=== PATIENT | male | born 1945 | race Caucasian/White ===

== ENCOUNTER 2019-03-25 13:35 | Outpatient (CLI) | payer MEDICARE, SELFPAY ==
[2019-03-25 14:23] LABS: Basophils % 0.4 %; Eosinophils # 0.2 10^3/uL (0.0-0.8); Eosinophils % 2.9 %; Hematocrit 34.5 % (42.0-52.0); Hemoglobin 11.9 g/dL (11.7-16.6); Lymphocytes # 0.8 10^3/uL (0.8-4.8); Lymphocytes % 14.6 %; Mean Corpuscular HGB Conc 34.5 g/dL (30.0-36.0); Mean Corpuscular Hemoglobin 33.3 pg (28.0-34.0); Mean Corpuscular Volume 96.6 fL (80-94); Mean Platelet Volume 10.7 fL (7.4-10.4); Monocytes # 0.4 10^3/uL (0.2-0.9); Monocytes % 7.5 %; Neutrophils # 3.9 10^3/uL (1.8-7.7); Nucleated Red Blood Cells % 0 %; Platelet Count 133 10^3/cmm (130-400); Red Blood Count 3.57 10^6/uL (4.1-5.3); White Blood Count 5.2 10^3/uL (4.0-10.0)
[2019-03-25 14:44] LABS: Prostate Specific Antigen < 0.02 ng/mL (0-4)
[2019-03-25 15:04] LABS: Alanine Aminotransferase 24 U/L (0-41); Albumin Level 4.5 g/dL (3.5-5.2); Alkaline Phosphatase 64 IU/L (40-130); Anion Gap 20.1 (5-19); Aspartate Amino Transferase 27 U/L (0-40); Blood Urea Nitrogen 19 mg/dL (8-23); Calcium 9.8 mg/Dl (8.8-10.2); Carbon Dioxide 22 mmol/L (22-29); Chloride 101 mmol/L (98-107); Globulin 2.8 g/dL (1.3-4.6); Glucose 169 mg/dL (74-106); Potassium 4.1 mmol/L (3.5-5.1); Sodium 139 mmol/L (136-145); Total Bilirubin 0.5 mg/dL (0.15-1.2); Total Protein 7.3 g/dL (6.6-8.7)
[2019-03-25 15:18] LABS: Testosterone Total 2.5 ng/dL (193-740)
[2019-03-25 15:31] LABS: Slide Review Slide Review Perform
== END 2019-03-25 13:36 | disposition home or self-care (01) ==
LOC: ONCMED 13:37
PROVIDERS: PCP Internal Medicine; Visit Provider Internal Medicine Hematology & Oncology
DX: C61 Malignant neoplasm of prostate (principal)
CPT/HCPCS: 80053; 84153; 84403; 85025

== ENCOUNTER 2019-03-27 12:30 | Outpatient (CLI) | payer MEDICARE, SELFPAY ==
--- NOTE | 2019-03-27 14:02 | ONC FU_ITS ---
Dr. Colindres follow up note Patient: Ji Ibarra Unit #: [id number]: 1945 Dicatated By: Jorge Colindres M.D.Date of Visit:Mar 27, 2019 Onc Med Follow-up/Prog Note History of Present Illness: Mr. Ji Ibarra, 73-year-old gentleman with a history of mildly elevated PSA since 2013 was on active surveillance and in November 2017 his PSA peaked to 12.4 so on 12/28/2017 he underwent TRUSP/biopsy which showed large volume adenocarcinoma prostate (10 out of 12 cores), right side Manuel score 3+3 ( 60% involvement) and 3+4 (90-100% )involvement, 2 cores of microscopic focus, left side Manuel score 3+4 (15 -100%) involvement and 4+4 (10% involvement)subsequently patient underwent stag with CT scan of abdomen pelvis and bone scan Which showed no evidence of metastatic disease except bone scan showed left posterior 11th rib focal intermediate increased activity whereas CT scan showed left 10th rib lytic lesion, no osteoblastic bone lesion identified and left lung base nodule. Started on ADT on 02/27/2018 with Zoladex/Casodex. Patient start taking Casodex on 02/27/2018, was supposed to get Zoladex too but due to miscommunication and insurance approval he could not get his Zoladex last month , so first dose was given on 03/28/2018 and Casodex was continued for another 2 weeks to prevent Zoladex-induced flare.s/p concurrent radiation therapy. Follow-up bone scan done on 12/10/2018 showed no activity seen at the posterior aspect of left 10th rib compared to prior scan No evidence of metastatic disease CT scan of chest done on 12/10/2018 showed stable lytic lesion in the left 10th rib, previously described 5 mm nodule left lung base is no longer seen Prominent peripancreatic lymph nodes unchanged since CT scan of abdomen pelvis done on 01/24/2018 Discussed with patient regarding his labs white blood count 5.6 hemoglobin 13.7 crit 38 platelets 126,000 CMP within normal limit except glucose 194 creatinine 1.4 and PSA is less than 0.02 tolerating 3 monthly Zoladex well but with expected side effects e.g. occasionally hot flashes and generalized weakness and fatigue. As follow-up bone scan and CT scan of chest and PSA level showed excellent response to the therapy. Came for follow-up, denies any specific complaints except generalized weakness and fatigue occasionally hot flashes otherwise tolerating ADT with Zoladex well. No fever or chills no nausea or vomiting, no hematuria or dysuria, no abdominal pain, no jaundice, no new bony pains. Medications: Allopurinol 1 Tablet (of 100 mg) Oral daily, Aspirin EC 1 Tablet (of 81 mg) Tablet, enteric coated Oral daily, Ferrous Sulfate 1 Tablet (of 325 (65 fe) mg) Oral daily, Lisinopril 1 Tablet (of 20 mg) Oral daily PRN, Meloxicam 1 Tablet (of 15 mg) Oral daily, MetFORMIN HCl 1 Tablet (of 1000 mg) Oral b.i.d., Metoprolol Tartrate 1 Tablet (of 50 mg) Oral b.i.d., Multivitamin Adult 1 Tablet Oral daily, Sildenafil Citrate 1 Tablet (of 100 mg) Oral PRN Allergies: No Known Allergies. Review of Systems: Constitutional - Appetite is improving, weight is stable. Positive for night sweats and weakness. Energy Level fair, ENMT - No sinus congestion/drainage. No mouth sores. No sore throat or difficulty swallowing, Hematologic/Lymphatic - No abnormal bruising or bleeding, Respiratory - Positive for shortness of breath with activity. Occasional cough. No pleuritic pain or hemoptysis, Cardiovascular - No angina pain. Positive for palpitations, Gastrointestinal - No nausea or vomiting. No heartburn or acid reflux. Occasional diarrhea, no constipation. No blood in the stool or black stools, Genitourinary (M) - No dysuria or hematuria. Nighttime urinary frequency. No urgency or incontinence, Musculoskeletal - No back or joint pain, Neurologic - No headache or dizziness. No numbness/paresthesias or other focal neurologic symptoms, Psychiatric - No anxiety or depression. No insomnia. Vital Signs: Performed on Mar 27, 2019 13:24 Height - 68.00 in Weight - 182.4 lbs (LOW) BSA - 1.97 sq.m BMI - 27.73 Temperature - 98.0 F (LOW) Pulse - 72 /min Respiration - 18 /min BP - 151/87 mm(hg) (HIGH) O2 Sat - 98 % Pain - 0 Performance Status: 1 - No physically strenuous activity, but ambulatory and able to carry out light or sedentary work (e.g. office work, light house work). (ECOG) Physical Examination: ENMT - No oral exudates, ulcers, masses, thrush or mucositis. Oropharynx clear. Tongue normal, Respiratory - Lungs are clear to auscultation without rhonchi or wheezing, Cardiovascular - Regular rate and rhythm of heart, Abdomen - Non-tender, non-distended, Good bowel sounds. No guarding or rebound tenderness. No pulsatile masses, Extremities - no edema. Lab/Imaging: Test performed on Mar 25, 2019 13:49 Testosterone 2.5 ng/dL Glucose 169 mg/dL BUN 19 mg/dL Creatinine 1.3 mg/dL Cr Clearance (Est) 60.78 mL/min Sodium 139 mmol/L Potassium 4.1 mmol/L Chloride 101 mmol/L CO2 22 mmol/L Calcium 9.8 mg/dL Protein, Total 7.3 g/dL Albumin 4.5 g/dL Globulin 2.8 g/dL Bilirubin, Total 0.5 mg/dL Alkaline Phosphatase 64 IU/L AST (SGOT) 27 IU/L ALT (SGPT) 24 IU/L WBC 5.2 10^9/L RBC 3.57 10^12/L HGB 11.9 g/dL HCT 34.5 % MCV 96.6 fl MCH 33.3 pg MCHC 34.5 g/dL RDW 13.0 % Platelet Count 133 10^9/L MPV 10.7 fL Neutrophils (Gran) 3.9 10^9/L Lymphocytes 0.8 10^9/L Monocytes 0.4 10^9/L Eosinophils 0.2 10^9/L Basophils 0.0 10^9/L Neutrophil % 2.9 % Manual Lymphocytes 14.6 % Manual Monocytes 7.5 % Manual Eosinophils 2.9 % Manual Basophils 0.4 % NRBCs 0.0 /100 WBC PSA 0.02 ng/mL Test performed on Mar 25, 2019 11:41 Ua Color yellow Ua Appearance clear Ua Specific [place] 1.005 Ua pH 7 Ua Protein Negative Ua Glucose 4+ Ua Ketones Negative Ua Blood Negative Ua Nitrites Negative Ua Bilirubin Negative Ua Urobilinogen 1 Impression: Prostatic adenocarcinoma per TRUSP/biopsy done on 12/28/2017 which showed large volume disease e.g. 10 out of 12 cores, right side [place] score 3+3 (60% involvement) and 3+4 (90-100% involvement) , 2 cores of microscopic focus, left-sided [place] score 3+4 (15 -100% involvement), and 4+4 (10% involvement), 2 cores microscopic focus PSA in November [address] scan of abdomen pelvis done on 01/24/2018 showed pulmonary nodule measures 5 mm at the left lung base and lytic area in the posterior left 10th rib measures 9 mm, no osteoblastic bone lesion identified, mildly enlarged prostate gland next Bone scan done on 01/24/2018 shows left posterior 11th rib focal intermediate increased activity , metastatic disease versus benign lesion with underlying pathological fracture. Type II diabetes mellitus Erectile dysfunction Congestive heart failure next Essential hypertension Started on ADT with Zoladex/Casodex on 02/27/2018. Patient is on Casodex since then, he was supposed to get Zoladex at the same time but due to miscommunication he could not get his dose of Zoladex, so first dose of Zoladex was given on 03/28/2018 and Casodex was continued for 2 more weeks to prevent Zoladex-induced flare Now on combined ADT and radiation therapy His follow-up bone scan done on 06/21/2018 showed improvement in previous left posterior 10th rib activity since 01/24/2018 this corresponds to a low density left 10th rib lesion seen on CT scan done on 01/24/2018 a metastatic lesion should be considered but this appearance is atypical for history of prostate cancer. No other abnormality seen. Mr. Ibarra is tolerating the androgen deprivation therapy well. He is just on Zoladex now. He is under the impression that he will just have 3 treatments of the Zoladex. Plan: Discussed with patient regarding his labs white blood count 5. hemoglobin 11.9 crit 34.5 platelets 133,000 CMP within normal limits PSA 0.02 Clinically, patient is doing well, tolerating ADT with Zoladex well but with expected side effects e.g. generalized weakness and fatigue and occasionally hot flashes but tolerable. We'll proceed with next 3 monthly dose of Zoladex today and then he will return to clinic in 3 months with CBC CMP PSA and testosterone and follow-up bone scan and CT scan of chest. Signed By: Jorge Colindres M.D. <<Signature on File>>
[2019-03-27] MEDS: goserelin acetate 10.8 mg Implant SUBCUT (14:05)
== END 2019-03-27 12:31 | disposition home or self-care (01) ==
LOC: ONCMED 12:32
PROVIDERS: PCP Internal Medicine; Visit Provider Internal Medicine Hematology & Oncology
DX: C61 Malignant neoplasm of prostate (principal); E11.9 Type 2 diabetes mellitus without complications; I11.0 Hypertensive heart disease with heart failure; I50.9 Heart failure, unspecified; N52.9 Male erectile dysfunction, unspecified; Z79.818 Long term (current) use of other agents affecting estrogen receptors and estrogen levels; Z79.82 Long term (current) use of aspirin; Z79.899 Other long term (current) drug therapy; Z79.84 Long term (current) use of oral hypoglycemic drugs; Z92.3 Personal history of irradiation
CPT/HCPCS: 96372; 96402; 99214; J9202

== ENCOUNTER 2019-06-25 16:03 | Outpatient (CLI) | payer MEDICARE, SELFPAY | END 2019-06-25 16:04 | disposition home or self-care (01) | PROVIDERS: PCP Internal Medicine; Visit Provider Internal Medicine Hematology & Oncology | DX: C61 Malignant neoplasm of prostate (principal) | CPT/HCPCS: 36415 ==

== ENCOUNTER 2019-06-26 14:16 | Outpatient (CLI) | payer MEDICARE, SELFPAY ==
[2019-06-25 16:48] LABS: Basophils % 0.3 %; Eosinophils # 0.3 10^3/uL (0.0-0.8); Eosinophils % 3.6 %; Hematocrit 35.5 % (42.0-52.0); Hemoglobin 12.3 g/dL (11.7-16.6); Lymphocytes # 1.1 10^3/uL (0.8-4.8); Lymphocytes % 16.1 %; Mean Corpuscular HGB Conc 34.6 g/dL (30.0-36.0); Mean Corpuscular Hemoglobin 34.3 pg (28.0-34.0); Mean Corpuscular Volume 98.9 fL (80-94); Mean Platelet Volume 11.2 fL (7.4-10.4); Monocytes # 0.5 10^3/uL (0.2-0.9); Monocytes % 7.3 %; Nucleated Red Blood Cells % 0 %; Platelet Count 142 10^3/cmm (130-400); Red Blood Count 3.59 10^6/uL (4.1-5.3); Red Cell Distribution Width 13.5 % (12.1-15.1)
[2019-06-25 20:04] LABS: Prostate Specific Antigen < 0.02 ng/mL (0-4)
[2019-06-25 20:16] LABS: Alanine Aminotransferase 20 U/L (0-41); Albumin Level 4.3 g/dL (3.5-5.2); Alkaline Phosphatase 61 IU/L (40-130); Anion Gap 20.6 (5-19); Aspartate Amino Transferase 23 U/L (0-40); Blood Urea Nitrogen 21 mg/dL (8-23); Calcium 9.7 mg/dL (8.5-10.5); Carbon Dioxide 23 mmol/L (22-29); Chloride 98 mmol/L (98-107); Globulin 2.8 g/dL (1.3-4.6); Glucose 202 mg/dL (65-115); Osmolality Calculated 286 mOsm/kg (285-295); Potassium 4.6 mmol/L (3.5-5.1); Sodium 137 mmol/L (136-145); Total Bilirubin 0.6 mg/dL (0.15-1.2); Total Protein 7.1 g/dL (6.6-8.7)
[2019-06-25 22:34] LABS: Testosterone Total 2.5 ng/dL (193-740)
--- NOTE | 2019-06-26 13:57 | ONC FU_ITS ---
Dr. Colindres follow up note Patient: Ji Ibarra Unit #: [id number]: 1945 Dicatated By: Jorge Colindres M.D.Date of Visit:Jun 26, 2019 Onc Med Follow-up/Prog Note History of Present Illness: Mr. Ji Ibarra, 73-year-old gentleman with a history of mildly elevated PSA since 2013 was on active surveillance and in November 2017 his PSA peaked to 12.4 so on 12/28/2017 he underwent TRUSP/biopsy which showed large volume adenocarcinoma prostate (10 out of 12 cores), right side Manuel score 3+3 ( 60% involvement) and 3+4 (90-100% )involvement, 2 cores of microscopic focus, left side Manuel score 3+4 (15 -100%) involvement and 4+4 (10% involvement)subsequently patient underwent stag with CT scan of abdomen pelvis and bone scan Which showed no evidence of metastatic disease except bone scan showed left posterior 11th rib focal intermediate increased activity whereas CT scan showed left 10th rib lytic lesion, no osteoblastic bone lesion identified and left lung base nodule. Started on ADT on 02/27/2018 with Zoladex/Casodex. Patient start taking Casodex on 02/27/2018, was supposed to get Zoladex too but due to miscommunication and insurance approval he could not get his Zoladex last month , so first dose was given on 03/28/2018 and Casodex was continued for another 2 weeks to prevent Zoladex-induced flare.s/p concurrent radiation therapy. Follow-up bone scan done on 12/10/2018 showed no activity seen at the posterior aspect of left 10th rib compared to prior scan No evidence of metastatic disease CT scan of chest done on 12/10/2018 showed stable lytic lesion in the left 10th rib, previously described 5 mm nodule left lung base is no longer seen Prominent peripancreatic lymph nodes unchanged since CT scan of abdomen pelvis done on 01/24/2018 Discussed with patient regarding his labs white blood count 5.6 hemoglobin 13.7 crit 38 platelets 126,000 CMP within normal limit except glucose 194 creatinine 1.4 and PSA is less than 0.02 tolerating 3 monthly Zoladex well but with expected side effects e.g. occasionally hot flashes and generalized weakness and fatigue. As follow-up bone scan and CT scan of chest and PSA level showed excellent response to the therapy. Came for follow-up, denies any specific complaints, no fever or chills, no nausea or vomiting, no new bony pains, occasionally hot flashes otherwise tolerating 3 monthly Zoladex well Medications: Allopurinol 1 Tablet (of 100 mg) Oral daily, Aspirin EC 1 Tablet (of 81 mg) Tablet, enteric coated Oral daily, Ferrous Sulfate 1 Tablet (of 325 (65 fe) mg) Oral daily, Lisinopril 1 Tablet (of 20 mg) Oral daily PRN, Meloxicam 1 Tablet (of 15 mg) Oral daily, MetFORMIN HCl 1 Tablet (of 1000 mg) Oral b.i.d., Metoprolol Tartrate 1 Tablet (of 50 mg) Oral b.i.d., Multivitamin Adult 1 Tablet Oral daily, Sildenafil Citrate 1 Tablet (of 100 mg) Oral PRN Allergies: No Known Allergies. Review of Systems: Constitutional - Appetite is improving, weight is stable. Positive for night sweats and weakness. Energy Level fair, ENMT - No sinus congestion/drainage. No mouth sores. No sore throat or difficulty swallowing, Hematologic/Lymphatic - No abnormal bruising or bleeding, Respiratory - Positive for shortness of breath with activity. Occasional cough. No pleuritic pain or hemoptysis, Cardiovascular - No angina pain. Positive for palpitations, Gastrointestinal - No nausea or vomiting. No heartburn or acid reflux. Occasional diarrhea, no constipation. No blood in the stool or black stools, Genitourinary (M) - No dysuria or hematuria. Nighttime urinary frequency. No urgency or incontinence, Musculoskeletal - No back or joint pain, Integumentary - , Neurologic - No headache or dizziness. No numbness/paresthesias or other focal neurologic symptoms, Psychiatric - No anxiety or depression. No insomnia. Vital Signs: Performed on Jun 26, 2019 13:37 Height - 68.00 in Weight - 179.2 lbs (LOW) BSA - 1.95 sq.m BMI - 27.25 Temperature - 97.1 F (LOW) Pulse - 70 /min Respiration - 17 /min BP - 177/100 mm(hg) (HIGH) O2 Sat - 98 % Pain - 0 Performance Status: 0 - Fully active, able to carry on all predisease activities without restrictions. (ECOG) Physical Examination: ENMT - no mouth sores or thrush, Respiratory - Lungs are clear , no wheezing, Cardiovascular - Regular rate and rhythm, Abdomen - denies any abdominal pain, Extremities - no visible edema. Lab/Imaging: Test performed on Mar 25, 2019 13:49 Testosterone 2.5 ng/dL Glucose 169 mg/dL BUN 19 mg/dL Creatinine 1.3 mg/dL Cr Clearance (Est) 60.78 mL/min Sodium 139 mmol/L Potassium 4.1 mmol/L Chloride 101 mmol/L CO2 22 mmol/L Calcium 9.8 mg/dL Protein, Total 7.3 g/dL Albumin 4.5 g/dL Globulin 2.8 g/dL Bilirubin, Total 0.5 mg/dL Alkaline Phosphatase 64 IU/L AST (SGOT) 27 IU/L ALT (SGPT) 24 IU/L WBC 5.2 10^9/L RBC 3.57 10^12/L HGB 11.9 g/dL HCT 34.5 % MCV 96.6 fl MCH 33.3 pg MCHC 34.5 g/dL RDW 13.0 % Platelet Count 133 10^9/L MPV 10.7 fL Neutrophils (Gran) 3.9 10^9/L Lymphocytes 0.8 10^9/L Monocytes 0.4 10^9/L Eosinophils 0.2 10^9/L Basophils 0.0 10^9/L Neutrophil % 2.9 % Manual Lymphocytes 14.6 % Manual Monocytes 7.5 % Manual Eosinophils 2.9 % Manual Basophils 0.4 % NRBCs 0.0 /100 WBC PSA 0.02 ng/mL Test performed on Mar 25, 2019 11:41 Ua Color yellow Ua Appearance clear Ua Specific [place] 1.005 Ua pH 7 Ua Protein Negative Ua Glucose 4+ Ua Ketones Negative Ua Blood Negative Ua Nitrites Negative Ua Bilirubin Negative Ua Urobilinogen 1 Impression: Prostatic adenocarcinoma per TRUSP/biopsy done on 12/28/2017 which showed large volume disease e.g. 10 out of 12 cores, right side Manuel score 3+3 (60% involvement) and 3+4 (90-100% involvement) , 2 cores of microscopic focus, left-sided Manuel score 3+4 (15 -100% involvement), and 4+4 (10% involvement), 2 cores microscopic focus PSA in November [address] scan of abdomen pelvis done on 01/24/2018 showed pulmonary nodule measures 5 mm at the left lung base and lytic area in the posterior left 10th rib measures 9 mm, no osteoblastic bone lesion identified, mildly enlarged prostate gland next Bone scan done on 01/24/2018 shows left posterior 11th rib focal intermediate increased activity , metastatic disease versus benign lesion with underlying pathological fracture. Type II diabetes mellitus Erectile dysfunction Congestive heart failure next Essential hypertension Started on ADT with Zoladex/Casodex on 02/27/2018. Patient is on Casodex since then, he was supposed to get Zoladex at the same time but due to miscommunication he could not get his dose of Zoladex, so first dose of Zoladex was given on 03/28/2018 and Casodex was continued for 2 more weeks to prevent Zoladex-induced flare Now on combined ADT and radiation therapy His follow-up bone scan done on 06/21/2018 showed improvement in previous left posterior 10th rib activity since 01/24/2018 this corresponds to a low density left 10th rib lesion seen on CT scan done on 01/24/2018 a metastatic lesion should be considered but this appearance is atypical for history of prostate cancer. No other abnormality seen. Mr. Ibarra is tolerating the androgen deprivation therapy well. He is just on Zoladex now. He is under the impression that he will just have 3 treatments of the Zoladex. Plan: Discussed with patient regarding his labs white blood count 7 hemoglobin 12.3 hematocrit 35.5 platelets 142,000 CMP within normal limit except glucose 202 and creatinine 1.4 and PSA less than 0.02 testosterone 2.5 Clinically, patient is doing well, tolerating Zoladex well but with expected side effects. Occasionally hot flashes. We'll proceed with next 3 monthly dose of Zoladex, today and then return to clinic in 3 months with PSA Patient was supposed to get follow-up CT scan of chest and bone scan but due to Hodges virus pandemic, and was not done and now we'll reschedule it prior to next visit in 3 months Signed By: Jorge Colindres M.D. <<Signature on File>>
[2019-06-26] MEDS: lidocaine 1% INJ 20 mL INJECTION (14:00)
[2019-06-26] MEDS: goserelin acetate 10.8 mg Implant IM (14:25)
== END 2019-06-26 14:17 | disposition home or self-care (01) ==
LOC: ONCMED 14:17
PROVIDERS: PCP Internal Medicine; Visit Provider Internal Medicine Hematology & Oncology
DX: C61 Malignant neoplasm of prostate (principal); M89.9 Disorder of bone, unspecified; E11.9 Type 2 diabetes mellitus without complications; N52.9 Male erectile dysfunction, unspecified; I50.9 Heart failure, unspecified; I10 Essential (primary) hypertension; Z79.818 Long term (current) use of other agents affecting estrogen receptors and estrogen levels
CPT/HCPCS: 80053; 84153; 84403; 85025; 96402; 99214; J2001; J9202

== ENCOUNTER 2019-09-10 08:37 | Outpatient (CLI) | payer MEDICARE, SELFPAY ==
--- NOTE | 2019-09-10 08:46 | NM_ITS ---
WS: [id number] NUCLEAR MEDICINE BONE SCAN Radiopharmaceutical: 25.6 Tc-99m MDP mCi IV Injection site: Right antecubital Postinjection imaging delay: 1 hr CLINICAL INFORMATION: RESTAGING COMPARISON: Bone scan December 10, [address] chest September 10, 2019 FINDINGS: Bone lesions: Focal area of uptake in the right sixth rib is new from November 13, 2018 suspicious f or healing rib fracture versus less likely metastatic disease. Tiny healing/healed rib fractures in t he right fifth and sixth ribs laterally faintly seen on the CT but appear unchanged since 2018. Recom mend correlation with recent history of trauma. Otherwise no evidence of metastatic disease. Soft tissue contours: Normal. Kidneys: Normal. Other findings: None. NM/NM bone scan whole body* [id number] IMPRESSION: 1. Focal area of uptake in the right sixth rib new from previous. This can be seen with focal healing rib fracture versus less likely metastatic disease. Rec ommend correlation with history of trauma. 2. Subtle healing/healed nondisplaced rib fractures at the right fifth and six th ribs laterally seen on the CT although unchanged in appearance since Sept2018. Recommend correlation with history of recent trauma.
--- NOTE | 2019-09-10 08:46 | CT_ITS ---
WS: [id number] CT CHEST TECHNIQUE: Contrast enhanced CT of the chest with coronal and sagittal reformatted images. CLINICAL INFORMATION: RESTAGING COMPARISON: CT chest December 10, 2018 DLP: 655.[address] scans at [facility] use at least one of these dose optimization techniques: automat ed exposure control; mA and/or kV adjustment per patient size (includes targeted exams where dose is matched to clinical indication); or iterative reconstruction. FINDINGS: Stable 9 mm lytic lesion in the left 10th rib. This is unchanged from previous. No suspicious pulmona ry parenchymal abnormalities. No evidence of intraparenchymal metastatic disease. No mediastinal or h ilar lymphadenopathy. Vascular calcification including coronary. No axillary lymphadenopathy. Normal gastroesophageal junct ion. Adrenal glands are normal. Mild bilateral cortical atrophy. Small bilateral renal cysts. Fluid d istended gallbladder with cholelithiasis. Hypertrophic changes mid and lower thoracic spine. Right ro tator cuff anchors. Prominent peripancreatic lymph nodes largest measuring 9 mm unchanged from previo us. IMPRESSION: 1. No significant changes from December 10, 2018 2. Stable lytic lesion in the left 10th rib. 3. No suspicious pulmonary parenchymal opacities. . 4. Distended gallbladder with cholelithiasis. Recommend ultrasound. 5. No mediastinal or hilar lymphadenopathy. 6. Prominent peripancreatic lymph nodes unchanged from previous
[2019-09-10 09:58] LABS: Blood Urea Nitrogen 18 mg/dL (8-23)
[2019-09-10] MEDS: iohexol 300 mg/mL 100 mL Btl IV (10:14)
== END 2019-09-10 08:38 | disposition home or self-care (01) ==
LOC: NM 08:39
PROVIDERS: PCP Internal Medicine; Visit Provider Internal Medicine Hematology & Oncology
DX: C61 Malignant neoplasm of prostate (principal)
CPT/HCPCS: 71260; 78306; 82565; 84520; A9561

== ENCOUNTER 2019-09-17 13:34 | Outpatient (CLI) | payer MEDICARE, SELFPAY ==
[2019-09-17 14:42] LABS: Prostate Specific Antigen 0.007 ng/mL (0-4)
== END 2019-09-17 13:35 | disposition home or self-care (01) ==
LOC: ONCMED 13:37
PROVIDERS: PCP Nurse Practitioner Family; Visit Provider Internal Medicine Hematology & Oncology
DX: C61 Malignant neoplasm of prostate (principal)
CPT/HCPCS: 36415; 84153

== ENCOUNTER 2019-09-18 13:27 | Outpatient (CLI) | payer MEDICARE, SELFPAY ==
[2019-09-18] MEDS: lidocaine 1% INJ 20 mL INJECTION (15:00)
--- NOTE | 2019-09-18 15:03 | ONC FU_ITS ---
Dr. Colindres follow up note Patient: Ji Ibarra Unit #: [id number]: 1945 Dicatated By: Jorge Colindres M.D.Date of Visit:Sep 18, 2019 Onc Med Follow-up/Prog Note History of Present Illness: Mr. Ji Ibarra, 73-year-old gentleman with a history of mildly elevated PSA since 2013 was on active surveillance and in November 2017 his PSA peaked to 12.4 so on 12/28/2017 he underwent TRUSP/biopsy which showed large volume adenocarcinoma prostate (10 out of 12 cores), right side Manuel score 3+3 ( 60% involvement) and 3+4 (90-100% )involvement, 2 cores of microscopic focus, left side Manuel score 3+4 (15 -100%) involvement and 4+4 (10% involvement)subsequently patient underwent stag with CT scan of abdomen pelvis and bone scan Which showed no evidence of metastatic disease except bone scan showed left posterior 11th rib focal intermediate increased activity whereas CT scan showed left 10th rib lytic lesion, no osteoblastic bone lesion identified and left lung base nodule. Started on ADT on 02/27/2018 with Zoladex/Casodex. Patient start taking Casodex on 02/27/2018, was supposed to get Zoladex too but due to miscommunication and insurance approval he could not get his Zoladex last month , so first dose was given on 03/28/2018 and Casodex was continued for another 2 weeks to prevent Zoladex-induced flare.s/p concurrent radiation therapy. Follow-up bone scan done on 12/10/2018 showed no activity seen at the posterior aspect of left 10th rib compared to prior scan No evidence of metastatic disease CT scan of chest done on 12/10/2018 showed stable lytic lesion in the left 10th rib, previously described 5 mm nodule left lung base is no longer seen Prominent peripancreatic lymph nodes unchanged since CT scan of abdomen pelvis done on 01/24/2018 Discussed with patient regarding his labs white blood count 5.6 hemoglobin 13.7 crit 38 platelets 126,000 CMP within normal limit except glucose 194 creatinine 1.4 and PSA is less than 0.02 tolerating 3 monthly Zoladex well but with expected side effects e.g. occasionally hot flashes and generalized weakness and fatigue. As follow-up bone scan and CT scan of chest and PSA level showed excellent response to the therapy. Follow-up bone scan done on September 10, 2019 showed focal area of uptake in the right sixth rib new from previous done on November 13, 2018. Can be focal healing rib fracture versus less likely metastatic disease. Subtle healing/healed nondisplaced rib fracture at the right fifth and sixth rib unchanged Patient has history of fall about a month ago as he was trying to pull water hose and had a fall sustained injury to right chest, thought he had a fracture as earlier he had pain with deep inhalation which slowly continue to improve. Came for follow-up, denies any specific complaint except occasionally hot flashes, no fever or chills, no nausea or vomiting, no diarrhea or constipation, tolerating Zoladex well otherwise Medications: Allopurinol 1 Tablet (of 100 mg) Oral daily, Aspirin EC 1 Tablet (of 81 mg) Tablet, enteric coated Oral daily, Ferrous Sulfate 1 Tablet (of 325 (65 fe) mg) Oral daily, Lisinopril 1 Tablet (of 20 mg) Oral daily PRN, Meloxicam 1 Tablet (of 15 mg) Oral daily, MetFORMIN HCl 1 Tablet (of 1000 mg) Oral b.i.d., Metoprolol Tartrate 1 Tablet (of 50 mg) Oral b.i.d., Multivitamin Adult 1 Tablet Oral daily Allergies: No Known Allergies. Review of Systems: Constitutional - Appetite is good, weight is stable. Positive for night sweats. Energy Level fair, ENMT - No sinus congestion/drainage. No mouth sores. No sore throat or difficulty swallowing, Hematologic/Lymphatic - No abnormal bruising or bleeding, Respiratory - No cough or shortness of breath. No pleuritic pain or hemoptysis, Cardiovascular - No angina pain. Positive for palpitations, Gastrointestinal - No nausea or vomiting. No heartburn or acid reflux. No diarrhea, no constipation. No blood in the stool or black stools, Genitourinary (M) - No dysuria or hematuria. Positive for urinary frequency. No urgency or incontinence, Musculoskeletal - No back or joint pain, Neurologic - No headache or dizziness. Positive for numbness in hands and feet, Psychiatric - No anxiety or depression. No insomnia. Vital Signs: Performed on Sep 18, 2019 14:17 Height - 68.00 in Weight - 179.8 lbs (HIGH) BSA - 1.95 sq.m BMI - 27.34 Temperature - 96.7 F (LOW) Pulse - 70 /min Respiration - 14 /min BP - 153/89 mm(hg) (HIGH) O2 Sat - 100 % Pain - 0 Performance Status: 1 - No physically strenuous activity, but ambulatory and able to carry out light or sedentary work (e.g. office work, light house work). (ECOG) Physical Examination: ENMT - No mouth sores, no thrush, no jaundice, Respiratory - Lungs are clear, Cardiovascular - Regular rate and rhythm of heart, Abdomen - Soft, bowel sounds present, Extremities - No visible edema.] Lab/Imaging: Test performed on Jun 25, 2019 16:15 Sodium 137 mmol/L Testosterone, Total 2.5 ng/dL Potassium 4.6 mmol/L Chloride 98 mmol/L CO2 23 mmol/L Anion Gap 20.6 BUN 21 mg/dL Creatinine 1.4 mg/dL Cr Clearance (Est) 54.03 mL/min Glucose 202 mg/dL Calcium 9.7 mg/dL Protein, Total 7.1 g/dL Albumin 4.3 g/dL Globulin 2.8 g/dL Bilirubin, Total 0.6 mg/dL ALT (SGPT) 20 U/L AST (SGOT) 23 U/L Alkaline Phosphatase 61 IU/L WBC 7.0 10 3/uL RBC 3.59 10 6/uL HGB 12.3 g/dL HCT 35.5 % MCV 98.9 fL MCH 34.3 pg MCHC 34.6 g/dL RDW 13.5 % Platelet Count 142 10 3/cmm MPV 11.2 fL Neutrophils 5.0 10 3/uL Lymphocytes 1.1 10 3/uL Monocytes 0.5 10 3/uL Eosinophils 0.3 10 3/uL Basophils 0.0 10 3/uL Neutrophil % 72.0 % Lymphocyte % 16.1 % Monocyte % 7.3 % Eosinophil % 3.6 % Basophils % 0.3 % PSA < 0.02 ng/mL Test performed on Mar 25, 2019 13:49 Testosterone 2.5 ng/dL Manual Lymphocytes 14.6 % Manual Monocytes 7.5 % Manual Eosinophils 2.9 % Manual Basophils 0.4 % NRBCs 0.0 /100 WBC Test performed on Mar 25, 2019 11:41 Ua Color yellow Ua Appearance clear Ua Specific [place] 1.005 Ua pH 7 Ua Protein Negative Ua Glucose 4+ Ua Ketones Negative Ua Blood Negative Ua Nitrites Negative Ua Bilirubin Negative Ua Urobilinogen 1 Impression: Prostatic adenocarcinoma per TRUSP/biopsy done on 12/28/2017 which showed large volume disease e.g. 10 out of 12 cores, right side Manuel score 3+3 (60% involvement) and 3+4 (90-100% involvement) , 2 cores of microscopic focus, left-sided Manuel score 3+4 (15 -100% involvement), and 4+4 (10% involvement), 2 cores microscopic focus PSA in November [address] scan of abdomen pelvis done on 01/24/2018 showed pulmonary nodule measures 5 mm at the left lung base and lytic area in the posterior left 10th rib measures 9 mm, no osteoblastic bone lesion identified, mildly enlarged prostate gland next Bone scan done on 01/24/2018 shows left posterior 11th rib focal intermediate increased activity , metastatic disease versus benign lesion with underlying pathological fracture. Type II diabetes mellitus Erectile dysfunction Congestive heart failure next Essential hypertension Started on ADT with Zoladex/Casodex on 02/27/2018. Patient is on Casodex since then, he was supposed to get Zoladex at the same time but due to miscommunication he could not get his dose of Zoladex, so first dose of Zoladex was given on 03/28/2018 and Casodex was continued for 2 more weeks to prevent Zoladex-induced flare Now on combined ADT and radiation therapy His follow-up bone scan done on 06/21/2018 showed improvement in previous left posterior 10th rib activity since 01/24/2018 this corresponds to a low density left 10th rib lesion seen on CT scan done on 01/24/2018 a metastatic lesion should be considered but this appearance is atypical for history of prostate cancer. No other abnormality seen. Mr. Ibarra is tolerating the androgen deprivation therapy well. He is just on Zoladex now. He is under the impression that he will just have 3 treatments of the Zoladex. Plan: Discussed with patient regarding his labs PSA 0.007, CT scan of chest and upper abdomen done on September 10, 2019 showed no significant change from December 10, 2018 Clinically, patient is doing well with no signs symptom suggestive of disease progression his follow-up labs shows PSA still subzero, and his bone scan shows no evidence of bone mets and right rib lesion was new since last visit but patient said he had a fall and injured right chest and his symptoms were consistent with maybe he had small fracture which is resolving or has resolved and there was the impression on bone scan too. And CT scan of chest showed no changes since November 2018 no suspicious pulmonary parenchymal opacity, stable lesion in the 10th rib. Prominent peripancreatic lymph nodes unchanged. Distended gallbladder with cholelithiasis but patient is not symptomatic. At this point we will continue with his 3 monthly Zoladex today and then he will return to clinic in 3 months with PSA, and for his scheduled 3 monthly Zoladex. And plan to repeat bone scan and CT scan in 6 months and if no evidence of disease progression, we may conclude his adjuvant hormonal therapy in February 2020. Signed By: Jorge Colindres M.D. <<Signature on File>>
[2019-09-18] MEDS: goserelin acetate 10.8 mg Implant IM (15:20)
== END 2019-09-18 13:28 | disposition home or self-care (01) ==
LOC: ONCMED 13:31
PROVIDERS: PCP Nurse Practitioner Family; Visit Provider Internal Medicine Hematology & Oncology
DX: C61 Malignant neoplasm of prostate (principal); E11.9 Type 2 diabetes mellitus without complications; N52.9 Male erectile dysfunction, unspecified; I11.0 Hypertensive heart disease with heart failure; I50.9 Heart failure, unspecified; S29.9XXD Unspecified injury of thorax, subsequent encounter; W19.XXXD Unspecified fall, subsequent encounter; Z79.818 Long term (current) use of other agents affecting estrogen receptors and estrogen levels
CPT/HCPCS: 96372; 96402; 99214; J2001; J9202

== ENCOUNTER 2019-10-01 08:56 | Outpatient (CLI) | payer MEDICARE, SELFPAY ==
--- NOTE | 2019-10-01 08:45 | USCV_ITS ---
Ji Ibarra Age: 73 Gender: M : 1945 Exam Date: 10/01/2019 09:11 Ordering Phys: Samuel Ashley MD ([email or web address]) Technologist: Mai Velez [place]am [place] [facility] [place]ication: diabetic, numbness and tingling on chemo Risk Factors: diabetes, chemo therapy, q Previous Vascular Surgery: RIGHT LEFT BP: 187.0 / BP: 189.0/ 0 0 Waveform Velocity (cm/s) Velocity (cm/s) Waveform Triphasic 60.2 Iliac Prox 71.2 Triphasic Triphasic 56.7 Iliac Mid 54.7 Triphasic Triphasic 51.8 Iliac Distal 48.9 Triphasic Triphasic 81.6 BUFFER NICKEL 47.4 Triphasic Triphasic 53.2 SFA Prox 52.0 Triphasic Triphasic 50.7 SFA Mid 40.1 Triphasic Triphasic 26.5 SFA Dist 28.0 Triphasic Biphasic 20.4 POP 43.3 Triphasic Monophasic 21.4 DIRECTOR OF REIMBURSEMENT 10.5 Monophasic Biphasic 32.6 DPA 20.0 Monophasic TATI 0.1 0.2 FINDINGS Moderate diffuse plaques iliac and femoral arteries bilaterally Markedly diminished resting ABIs bilaterally CONCLUSIONS Markedly diminished resting ABIs bilaterally, consistent with a severe peripheral artery disease, in the range of exertional claudication. The arterial Doppler waveforms may suggest aortic disease. Consider CTA Dr. Ashley is informed about these findings Dr Meredith Howe MD [facility] (Electronically Signed) Final Date: 02 October 2019 08:26 S
== END 2019-10-01 08:57 | disposition home or self-care (01) ==
LOC: RAD 09:01
PROVIDERS: PCP Nurse Practitioner Family; Visit Provider Internal Medicine Cardiovascular Disease
DX: E11.9 Type 2 diabetes mellitus without complications (principal); R20.0 Anesthesia of skin; R20.2 Paresthesia of skin
CPT/HCPCS: 93925

== ENCOUNTER 2019-10-09 07:56 | Outpatient (CLI) | payer MEDICARE, SELFPAY ==
--- NOTE | 2019-10-09 08:00 | CT_ITS ---
WS: [id number] CT ANGIOGRAPHY OF THE ABDOMINAL AORTA WITH RUNOFF TO THE ANKLES HISTORY: PAD TECHNIQUE: Arterial injection is performed during imaging to evaluate the aorta and runoff vessels to the ankles. MIP and volume rendering imaging has also been performed. All images are reviewed. All C T scans at [facility] use at least one of these dose optimization techniques: automated ex posure control; mA and/or kV adjustment per patient size (includes targeted exams where dose is match ed to clinical indication); or iterative reconstruction. Contrast: Omnipaque 350; 95 mL IV. DLP: 1499.18 mGycm COMPARISON: Arterial duplex 10/01/2019 Chronic emphysema at the lung bases. Heart size is slightly enlarged. No pericardial effusion. No sig nificant hiatal hernia. Early arterial enhancement of the visceral organs demonstrates no acute abnor mality. Liver is normal size. Mild distention of the gallbladder with no adjacent inflammation. Adren al glands are normal. Spleen is normal size. Mild bilateral renal atrophy and cortical thinning. No s olid mass or obstruction. Calcification lower pole RIGHT kidney measures 1 cm. No adenopathy or free fluid. Normal appendix. Extensive diverticular disease in the distal colon without obstruction or acu te process. Asymmetric wall thickening of the rectum. LEFT lateral rectum measures 11 mm which was no t present on 01/24/2018. Small fat-containing umbilical hernia. Mildly enlarged prostate gland indent ing the posterior bladder. There is mild diffuse bladder wall thickening. Abdominal aorta: Normal size abdominal aorta with no aneurysm. There are a few scattered plaques with in the infrarenal aorta. Normal origin of the SMA and celiac axis. Widely patent bilateral renal art eries. Inferior mesenteric artery is also patent. RIGHT lower extremity arterial system: Mild calcified plaque within the RIGHT common, internal and ex ternal iliac arteries. Common femoral artery and the superficial femoral artery and the deep profunda are patent. There are a few areas of calcified plaque throughout the course, greatest through Nilesh 's canal. Increase in calcification in the popliteal artery. There is an abrupt termination of contra st column in the distal popliteal artery. Significant increase in the amount of circumferential calci fication beginning in the distal popliteal artery and extends into the anterior and posterior tibial and peroneal arteries. Heavy calcification obstructing visualization of the contrast. Doubtful there is any significant amount of vascularity due to the significant calcification in all 3 vessels to the ankle. LEFT lower extremity arterial system: Good opacification with minimal atherosclerosis in the common, internal and external iliac arteries. Deep profunda and the superficial femoral artery are patent. I ncreasing plaque and atherosclerosis distally. Decrease in contrast column in the popliteal artery. I ncreasing plaque. Termination of contrast column in the popliteal artery with limited flow. Circumfer ential calcified plaque throughout the tibioperoneal trunk in the posterior vertebral artery. There i s no arterial opacification to the ankle. Degenerative rotoscoliosis of the lumbar spine with advanced degenerative changes at L3-4 and L5-S1. No osteoblastic or osteolytic bone disease. CT/CT angio abd aorta runof [id number] IMPRESSION: 1. Occlusion of the RIGHT contrast column in the distal popliteal artery. No c ontrast identified in the three-vessel runoff to the ankle with heavy circumfer ential calcified plaque involving all arteries below the knee. 2. Occlusion of the LEFT contrast column in the popliteal artery. Circumferent ial calcified plaque with no enhancement of the arteries below the knee. 3. Asymmetric wall thickening of the rectum. LEFT lateral rectal wall thickeni ng is new since 2018. Neoplasm is not excluded. Recommend additional evaluation by colonoscopy. 4. Chronic emphysema. 5. Mild bilateral renal atrophy. 6. Mild prostate gland enlargement with mild diffuse bladder wall thickening w hich may be related to outlet obstruction.
[2019-10-09] MEDS: iohexol 350 mg/mL 100 mL Btl IV (08:23)
== END 2019-10-09 07:57 | disposition home or self-care (01) ==
LOC: RADWPI 08:02
PROVIDERS: PCP Nurse Practitioner Family; Visit Provider Internal Medicine Cardiovascular Disease
DX: I73.9 Peripheral vascular disease, unspecified (principal); I70.8 Atherosclerosis of other arteries; N26.1 Atrophy of kidney (terminal); J43.9 Emphysema, unspecified; N40.0 Benign prostatic hyperplasia without lower urinary tract symptoms
CPT/HCPCS: 75635; Q9967

== ENCOUNTER → 2019-11-04 09:55 | Outpatient (BNVA) | payer MEDICARE, SELFPAY | PROVIDERS: PCP Nurse Practitioner Family; Visit Provider Internal Medicine | DX: Z11.59 Encounter for screening for other viral diseases (principal) | CPT/HCPCS: 87635 ==

== ENCOUNTER 2019-11-07 07:51 | Day surgery (SDC) | payer MEDICARE, SELFPAY ==
[2019-11-04 11:46] LABS: Basophils % 0.5 %; Eosinophils # 0.2 10^3/uL (0.0-0.8); Eosinophils % 2.7 %; Hematocrit 36.6 % (42.0-52.0); Hemoglobin 12.6 g/dL (11.7-16.6); Lymphocytes # 0.7 10^3/uL (0.8-4.8); Lymphocytes % 11.4 %; Mean Corpuscular HGB Conc 34.4 g/dL (30.0-36.0); Mean Corpuscular Hemoglobin 34.6 pg (28.0-34.0); Mean Corpuscular Volume 100.5 fL (80-94); Mean Platelet Volume 10.8 fL (7.4-10.4); Monocytes # 0.4 10^3/uL (0.2-0.9); Monocytes % 6.6 %; Neutrophils # 4.94 10^3/uL (1.8-7.7); Neutrophils % 77.9 %; Nucleated Red Blood Cells % 0 %; Platelet Count 146 10^3/cmm (130-400); Red Blood Count 3.64 10^6/uL (4.1-5.3); Red Cell Distribution Width 13.2 % (12.1-15.1); White Blood Count 6.3 10^3/uL (4.0-10.0)
[2019-11-04 13:07] LABS: Anion Gap 19.6 (5-19); Blood Urea Nitrogen 19 mg/dL (8-23); Calcium 8.8 mg/dL (8.5-10.5); Carbon Dioxide 22 mmol/L (22-29); Chloride 100 mmol/L (98-107); Glucose 246 mg/dL (65-115); Osmolality Calculated 289 mOsm/kg (285-295); Potassium 4.6 mmol/L (3.5-5.1); Sodium 137 mmol/L (136-145)
[2019-11-04 14:30] LABS: INR 1.04 (0.8-1.2)
[2019-11-06 10:53] VITALS: BMI 27.5
--- NOTE | 2019-11-07 08:00 | XACV_ITS ---
Wt: 82 kg BSA: 2.00 m2 Any Known Allergies: No known allergies Gender: Male : 1945 Exam Type: Invasive Peripheral Vascular Procedure(s): Procedure Description: Peripheral Cath Diagnostic Procedure Procedure Description: Abdominal aortic angiography Procedure Description: Lower extremities' angiography Procedure Description: Peripheral vascular Intervention Procedure Description: PV Balloon Exam Priority: Routine Lower Extremity Interventional Findings : Using right common femoral artery with help of Glidewire and seeker command wire was exchanged. [place] 2.5 x 40 x 150 balloon was used to perform balloon angioplasty of the proximal left anterior tibial with good angiographic results. Improved flow was noted. Conclusions Indication for peripheral angiogram:Liifestyle limiting claudication with severe peripheral vascular disease by TATI and CTA runoff revealing complete occlusion of both popliteal vessel with no significant flow beyond the kneeAbdominal angiogram: Abdominal aorta has luminal irregularities, bilateral renal arteries luminal irregularities, bilateral common iliac has luminal irregularities, bilateral external and internal iliac artery has luminal irregularities, bilateral femoral artery has luminal irregularities, bilateral SFA has luminal irregularities with very sluggish flow, bilateral profunda femoral has luminal irregularities, bilateral popliteal artery has luminal irregularity with sluggish flow, bilateral tibioperoneal trunk has luminal irregularity with sluggish flow. Left anterior tibial artery has proximal eccentric significant 80% tight stenosis, left posterior tibial is chronically occluded, left peroneal artery has chronic lesion in the mid. Left anterior tibial artery is occluded in the very distal segment however it provides flow to the foot arch through collaterals. Severe endothelial dysfunction with sluggish flow was noted. Right below the knee knee arteries were not well visualized due to sluggish flow. Recommendations 1-Return to inpatient for close monitoring and routine cath care 2-Risk factor modification for secondary prevention 3-Statin and aspirin 81 mg life--long, if tolerated 4-Continue Plavix 75mg p.o. daily for at least three months. We will assess at the end of one year again to continue if further or not 5-Continue optimal medical management 6-Follow up with Dr. Benavides in four weeks and your primary care in 10 days. Hemodynamic Data Phase:Rest AO : 143.0 mmHg / 69.0 mmHg ( 97.0 mmHg ) @ 4:32:00 AM 148.0 mmHg / 77.0 mmHg ( 101.0 mmHg ) @ 5:31:00 AM Access Site Site: Right Femoral artery Sheath Size: 6 Fr Hemost... Success: Unsuccessful Procedure Details Findings Procedure Consent Obtained. Pre-Procedure Time Out. Identified patient by full name and date of as verbalized by the patient/guarantor. Does the consent match the physician's order: Yes. Accurate & Complete Informed Consent: Yes. Inpatient/Outpatient History & Physical on Chart: Yes. If H&P is completed, is and addenduem needed: No; If yes, is the addendum complete: N/A. Visualize and Verify Site with Patient/Guarantor: N/A. Relevant Radiology Images available: N/A. Pre-op teaching completed and patient verbalized understanding. The risks, benefits, and alternatives of sedation and/or procedure were discussed by physician. The patient agrees to continue. Procedure started. Correct patient, site and procedure confirmed by cath team. pre op diagnosis: lifestyle limiting claudication, PVD. PERRLA. Strong, equal hand role player bilaterally. Lungs clear x 5 lobes. IV Site on Arrival: 18 gauge in the left anticubital. IV Fluids: 0.9% NaCl at KVO. 0 mL infused prior to mason tender restoration labor. Pre Procedural Pulses: bilateral dorsalis pedis was 1+. Pre Procedural Pulses: left posterior tibial was 1+. Pre Procedural Pulses: right posterior tibial was Absent. Oxygen started at 2liters/min via nasal canula. bilateral groins was prepped with chloroprep then draped in the usual sterile fashion. Baseline sample Acquired. HR: 56 BPM. Physician notified. Physician arrived. Equipment: Peripheral. Cardiac Cath Pack. ACIST Manifold Kit Model BT 2000. Heparinized Saline (2 units/mL), 1000 mL bag. Physician scrubbed in. Time out performed with cath team. Lidocaine 1% infiltrated to the right groin. Arterial access obtained with micropuncture set. Glidewire inserted. A CORDIS 5F UF catheter 65cm was advanced over the wire and used for Abdominal aortogram with runoff. Glidewire out. Abdominal aortogram performed in AP @ 10 mL/sec for a total of 30 mL. Catheter removed over the glide wire. A JJ 5F RIM 65 cm Diagnostic Catheter was advanced over the wire and used for Lower extremity arteriography. Left leg runoff 10 ml for total of 30 ml. SEEKER support catheter inserted over Glidewire. Hand injection. Digital subtraction picture taken of left lower leg. Command wire inserted. Unable to reach family via phone call to give update. Family updated. SEEKER catheter removed over Command wire. Inflation number : 1 A AB ARMADA 14 OTW [id number] was prepped and advanced across the Anterior Tibial, Left , then inflated to 10 KATHLEEN for 0:21 seconds. Inflation number: 2 The AB ARMADA 14 OTW [id number] was reinflated across the Anterior Tibial, Left, to 10 KATHLEEN for 1:07 seconds. Balloon out over Command wire. SEEKER catheter inserted. Wire out. SEEKER out over glidewire. Short 6 fr sheath exchanged for long 45 cm 6 fr Flexor sheath. Inventory is JJ 6F 11cm Gisella Plus Sheath. Inventory is CK 6 FR FLEXOR SHEATH 45CM. SEEKER out. Long flexor sheath exchanged for short 6 fr sheath. Right leg runoff through sheath 10 ml for total of 30 ml. Sheath removed using MYNX closure device. [employer] rep (Yudelka) present to give instructions for this device. Post Procedure: Pulses reassessed and unchanged. PERRLA. Strong, equal hand role player bilaterally. No VTE prophylaxis required. Manual pressure held to access site after closure device removed by Dr Benavides. Medication's Wasted: Lidocaine 1% = 2 mL. Medication's Wasted: Heparin = 1000 units. Medication's Wasted: Other = fentanyl 50 mcg. Medication's Wasted: Nitro = 49.2 mg. Physician scrubbed out. Total IV fluids: 115 mL. Contrast type used: Visipaque 320 mgI/mL, 500 mL bottle. Complications: none. Estimated blood loss: 5mL-10mL. Manual pressure held at access site due to hematoma. Post-op diagnosis: severe PVD, endothelial dysfunction. Hematoma measures 14cm x 8.5 cm. Procedure completed. Patient transferred by bed to 1st floor. Vital chart was stopped. Procedure Medications Start: 9:09 AM Stop: 9:09 AM Medication: Versed Amount: 1 mg Route: I.V. Start: 9:09 AM Stop: 9:09 AM Medication: Fentanyl Amount: 50 mcg Route: I.V. Start: 10:11 AM Stop: 10:11 AM Medication: Versed Amount: 0.5 mg Route: I.V. Start: 9:45 AM Stop: 9:45 AM Medication: Heparin Amount: 5000 units Route: I.V. Start: 10:23 AM Stop: 10:23 AM Medication: Nitrogylcerin Amount: 400 mcg Route: I.A. Start: 10:26 AM Stop: 10:26 AM Medication: Nitrogylcerin Amount: 400 mcg Route: I.A. I, the attending physician, have reviewed and verified all procedure medications. Yes, all medications given per verbal order History/Risk Factors Hypertension: Yes Dyslipidemia: Yes Diabetic Therapy: Oral Peripheral Arterial Disease (PAD): Yes Myocardial Infarction (OR): No Obesity: No Renal Disease: No Tobacco Use: Former Prior Interventions PCI: No CABG: No Valve Surgery: No Report Signatures Finalized by:Khoa Benavides MD on 11/21/2019 2:45:37 PM
[2019-11-07] MEDS: diphenhydrAMINE 50 mg Capsule PO (08:05)
[2019-11-07 08:29] VITALS: BP 138/89; PULSE 59; RESP 16; TEMP 36.9; O2SAT 99; BMI 27.5
--- NOTE | 2019-11-07 09:11 | P.HP_ITS ---
Same Day Surgery H&P Indication for Procedure/HPI DATE OF PROCEDURE: November 07, 2019 Details: Reason for follow-up:Liifestyle limiting claudication with severe peripheral vascular disease by TATI and CTA runoff revealing complete occlusion of both popliteal vessel with no significant flow beyond the knee 73-year-old male past medical history significant for metastatic prostate CA on chemotherapy Zoladex, history of recurrent chest pain leading to coronary angiogram which turned out to be normal has been referred to me by my colleague Dr. Multani after his detention since patient continues to have lifestyle limiting claudication and ABIs were performed which showed severe peripheral arterial disease. CTA with runoff was performed which showed chronically occluded popliteal vessels. No significant below the knee flow was observed. It is possible patient has highly calcified vessels. Physical examination patient does not have ulcer but no pulses bilaterally. According to patient he cannot walk more than 100 feet he has to sit down to get over it. He has typical claudication, I will add atorvastatin to his regimen his blood pressures under control. He is diabetic. CT/CT angio abd aorta runof [id number] IMPRESSION: 1. Occlusion of the RIGHT contrast column in the distal popliteal artery. No contrast identified in the three-vessel runoff to the ankle with heavy circumferential calcified plaque involving all arteries below the knee. 2. Occlusion of the LEFT contrast column in the popliteal artery. Circumferential calcified plaque with no enhancement of the arteries below the knee. 3. Asymmetric wall thickening of the rectum. LEFT lateral rectal wall th ickening is new since 2018. Neoplasm is not excluded. Recommend additional evaluation by colonoscopy. 4. Chronic emphysema. 5. Mild bilateral renal atrophy. 6. Mild prostate gland enlargement with mild diffuse bladder wall thickening which may be related to outlet obstruction. On today's visit dated 11/07/2019 patient is here for planned peripheral angiogram for worsening of lifestyle limiting claudication and evidence of lack of blood supply below the knee bilaterally. Patient has history of peripheral vascular disease. His medication were optimized since he is not getting better and because of the fact it is lifestyle limiting claudication will proceed with peripheral angiogram with CHIEF COMPLAINT/INDICATIONFOR SURGICAL PROCEDURE: Lifestyle limiting claudication PREOP DIAGNOSIS: Severe peripheral vascular disease PLANNED PROCEDRUE: Operation Date: 11/07/19 08:30 Proposed Procedures p Peripheral Diagnostic(Not Applicable) - Khoa Benavides MD Medications/Allergies* Home Medications Medication Instructions Recorded Confirmed Type allopurinol 100 mg tablet 100 mg PO DAILY tab 03/15/19 11/15/19 History aspirin 81 mg tablet,delayed 81 mg PO DAILY tab 03/15/19 11/15/19 History release lisinopril 20 mg tablet 20 mg PO DAILY tab 03/15/19 11/15/19 History metformin 500 mg tablet 1,000 mg PO BID tab 03/15/19 11/15/19 History metoprolol tartrate 50 mg tablet 50 mg PO BID 03/15/19 11/15/19 History Allergies/Adverse Reactions Allergy/AdvReac Type Severity Reaction Status Date / Time No Known Allergies Allergy Unverified 03/19/19 15:00 Current Medications: Generic Name Dose Route Start Last Admin Trade Name Freq PRN Reason Stop Dose Admin Sodium Chloride 1,000 mls @ 50 mls/hr 11/07/19 07:30 11/07/19 08:05 Sodium Chloride 0.9% IV 11/08/19 03:29 Not Given .Q20H ONE Pertinent History/Comorbid Conditions* Medical History (Updated 10/19/19 @ 16:03 by Khoa Benavides MD) Benign essential HTN BPH (benign prostatic hyperplasia) Carpal tunnel syndrome CHF (congestive heart failure) 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, glomerular filtration rate (GFR) equal to or greater than 90 mL/min/1.73 square meter and albuminuria creatinine ratio between 30-299 mg/g Claudication in peripheral vascular disease Diabetes 1.5, 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 Peripheral arterial disease with history of revascularization Prostate cancer Surgical History (Updated 03/19/19 @ 15:54 by Samuel Ashley MD) Previous back surgery S/P inguinal hernia repair Family History (Updated 03/15/19 @ 15:14 by Marti Dunbar RN) COPD (chronic obstructive pulmonary disease) Father Social History Smoking and tobacco status: former smoker Alcohol intake: never Household members: spouse Marital status: service: Yes branch: [employer] Current occupational status: retired Current gender identity: Male Melanie/Spiritism: [employer] Pertinent Exam Findings alert, oriented x 3, clear to auscultation bilaterally, regular rate & rhythm and operative site marked Recommendations Surgery/Procedure today Coding Level of Care Code Established 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
--- NOTE | 2019-11-07 09:11 | W.PM.OPSUD ---
Surgery/Procedure H&P Update DATE OF PROCEDURE: November 07, 2019 DATE H&P PERFORMED: 10/16/19 H&P UPDATE INFORMATION: I have reviewed H&P completed within last 30 days, I have examined patient prior to procedure, No changes to prior documentation and Changes to prior documentation as noted here PREOP DIAGNOSIS: Lifestyle limiting claudication with severe peripheral vascular disease failed conservative management PLANNED PROCEDURE: Operation Date: 11/07/19 08:30 Proposed Procedures p Peripheral Diagnostic(Not Applicable) - Khoa Benavides MD PATIENT REASSESSED PRIOR TO SEDATION, WITH NO CHANGE NOTED: Yes PHYSICAL EXAM: alert, oriented x 3, clear to auscultation bilaterally and regular rate & rhythm AIRWAY EVAL/ANESTHESIA PLAN: normal airway, ASA II, Risks, benefits & alternatives of sedation and/or procedure discussed and Patient agrees to continue as planned
[2019-11-07 11:28] VITALS: BP 123/73; PULSE 60; RESP 24; O2SAT 97
[2019-11-07] MEDS: clopidogrel 300 mg Tablet PO (12:22)
[2019-11-07 17:08] LABS: Glucose Point of Care 152 mg/dL (70-110)
[2019-11-07] MEDS: metoprolol tartrate 50 mg Tablet PO (17:25)
[2019-11-07 17:29] VITALS: PULSE 67; O2SAT 99
[2019-11-07 20:26] VITALS: PULSE 85; O2SAT 97
[2019-11-07 20:38] VITALS: BP 125/73; PULSE 73; RESP 22; TEMP 36.8; O2SAT 95
[2019-11-07] MEDS: sodium chloride 0.9% 1,000 ML 75 ML IV (21:03)
--- NOTE | 2019-11-07 22:18 | PC.NURSE ---
Patient does not have any complaints at this time. Verified with Dr. Benavides to run NS @ 75 throughout the night and check BMP in AM. Right groin site has bruising, but no bleeding or hematoma. VSS. Patient refusing to walk at this time, but states he will walk with nurse later.
[2019-11-08] VITALS (9 sets, daily range): BP systolic 130–160; BP diastolic 73–87; PULSE 64–82; RESP 15–31; TEMP 36.6–37.5; O2SAT 95–97
[2019-11-08] MEDS: fentaNYL 50 mcg/mL INJ 2mL IVP (01:16)
--- NOTE | 2019-11-08 01:38 | PC.NURSE ---
Patient began to have pain in right groin. Patient states I just all of the sudden got really bad pain. Patient had hematoma that he did not have earlier. Hematoma has been marked to watch for growth. VSS. Pedal pulses present by doppler. Dr. Shaffer notified. Ordered to give 50 mcg Fentanyl and hold manual pressure for 20 minutes, which was done. Will monitor.
--- NOTE | 2019-11-08 02:42 | PC.NURSE ---
Hematoma seems to be getting softer. Vital signs still stable. Patient does not have any complaints. Will monitor.
[2019-11-08 04:53] LABS: Anion Gap 13.6 (5-19); Blood Urea Nitrogen 24 mg/dL (8-23); Calcium 8.6 mg/dL (8.5-10.5); Carbon Dioxide 23 mmol/L (22-29); Chloride 104 mmol/L (98-107); Glucose 232 mg/dL (65-115); Osmolality Calculated 286 mOsm/kg (285-295); Potassium 4.6 mmol/L (3.5-5.1); Sodium 136 mmol/L (136-145)
[2019-11-08] MEDS: atorvastatin 40 mg Tablet 20 MG PO (08:47)
[2019-11-08] MEDS: metoprolol tartrate 50 mg Tablet PO (08:47)
[2019-11-08] MEDS: allopurinol 100 mg Tablet PO (08:48)
[2019-11-08] MEDS: ferrous sulfate EC 325 mg Tablet PO (08:48)
[2019-11-08] MEDS: aspirin 81 mg EC Tablet PO (08:48)
[2019-11-08] MEDS: lisinopril 20 mg Tablet PO (08:48)
[2019-11-08] MEDS: meloxicam 7.5 mg tablet 15 MG PO (08:49)
--- NOTE | 2019-11-08 09:28 | PM.DCS ---
Discharge Providers Date of Discharge: November 08, 2019 Attending Provider at Discharge: Khoa Benavides MD Primary Care Provider: RICARDO Trujillo Hospital Course Hospital Course: Patient underwent peripheral angiogram found to have severe endothelial dysfunction and sluggish flow and calcified arteries. He was also noted to have significant below the knee disease including chronically occluded left posterior tibial and peroneal artery. Single-vessel runoff to the foot through left anterior tibial artery had proximal 80% highly calcified stenosis it was treated with balloon angioplasty with good result which reduced lesion to less than 40%. Good blood flow noted in that single vessel. Post op care and course was uncomplicated. He is feeling better wound site looks good on the right groin. He is being discharged home today. Discharge Summary: As above. Discharge Data Data Completed and Pending: Pending at discharge Category Date Time Status BUSINESS MAIL ENTRY CLERK request for service Routin e Exams 11/07/19 08:00 Taken Labs from last 24 hours 11/08/19 11/07/19 03:30 16:41 Sodium 136 Potassium 4.6 Chloride 104 Carbon Dioxide 23 Anion Gap 13.6 BUN 24 H Creatinine 1.6 H GFR Calculation Not Reportable Glucose 232 H POC Glucose 152 Calculated Osmolal ity 286 Calcium 8.6 Vitals: Last Vital Signs Temp 98.0 F 11/08/19 08:34 Pulse 82 11/08/19 08:34 Resp 28 H 11/08/19 08:34 BP 140/87 11/08/19 08:34 Pulse Ox 96 11/08/19 08:34 Discharge Plan Discharge Patient Disposition: Home Condition: Stable Prescriptions: New clopidogrel 75 mg tablet 75 mg PO DAILY Qty: 30 RF: 0 Protonix 40 mg tablet,delayed release (DR/EC) 40 mg PO DAILY Qty: 30 RF: 0 Continued allopurinol 100 mg tablet 100 mg PO DAILY RF: 0 metformin 500 mg tablet 1,000 mg PO BID RF: 0 metoprolol tartrate 50 mg tablet 50 mg PO BID RF: 0 lisinopril 20 mg tablet 20 mg PO DAILY RF: 0 aspirin [Adult Low Dose Aspirin] 81 mg tablet,delayed release (DR/EC) 81 mg PO DAILY RF: 0 atorvastatin 20 mg tablet 20 mg PO DAILY Qty: 90 RF: 3 Discharge Orders: Discharge Order (Routine); Ordered 11/08/19 Ordered By: Khoa Benavides Referrals: [facility], [Family Provider] - Moni Pardo FNP [Primary Care Provider] - 7-10 days (You will also have a follow up appointment with your PCP on November 14, at 9:30am. If you have any questions or concerns please call [facility]. ) Annamarie Pitts FNP [Nurse Practitioner] - 7-10 days (You have an appointment with Annamarie Pitts on November 14, at 9:20am. This appointment is to check your wound and to do some lab work. If you have any questions or concerns please call the office. ) Discharge Diet: Diabetic Discharge Activity: Increase activity as tolerated Patient Instructions: Clopidogrel (By mouth), Pantoprazole (By mouth), Peripheral Vascular Angioplasty (DC), Post Angiogram Home Care Instructions Activity Restrictions/Additional Instructions: No lifting of more than gallon of milk for the next 3 days. Follow-up with Annamarie Pitts in 7 days in cardiology clinic. Follow-up with Dr. Almendarez in 6 to 8 weeks. Discharge Date/Time: 11/08/19 14:12 Discharge Attestations Time Spent in Discharge Care*: less than 30 min Specific Discharge Activities: Specific discharge activities: educating patient Quality Metrics Clinical Quality Measures During this hospital stay, did patient experience: None Coding Level of Care Code Acute Spout Positioner for Anna [place]
--- NOTE | 2019-11-08 09:46 | PC.NURSE ---
patient agreeable to walking this am when Dr benson was at bedside for discussion of discharge. Patient walked with this nurse and use of cane. Patient was only able to tolerate 80 feet with noted SOB and mild labored breathing. Patient sat on side of bed to recover. Patient recovered well however did not sit on side of bed long before lying back in the bed. Patient reporting that he feels very weak and unsteady to go home. Dr benson spoke with patients and POC is to observe for a couple more hours to see how he tolerates walking with staff more. Patient expresses agitation Well me staying here till non will not make a difference. spoke with patient about rehab for strengthening and endurance. Patient verbalized agitation with last experience with therapy. unsure if patient would be willing to attend physical therapy. will speak with provider.
--- NOTE | 2019-11-08 12:18 | PC.CHAP ---
Pastoral Care Encounter/Spiritual Assessment Type of Contact [] Declined psychological operations visit [] Patient/Family/Request visit [] Outpatient visit [] Follow-up visit [] Physician referral [] Code/Alert [xx] Routine visit [] Staff referral [] Actively dying [] Patient sleeping [] Family support [] [] Out of room [] Palliative care [] [] Receiving care in room [] Pre-surgical visit [] Trauma [] Long length of stay [] ICU visit [] Other: Relational/Emotional Strength [xx] Patient feels connected with others/family/visitors/staff [] Distress [] Loneliness/isolation [] Abandonment Spirituality of Patient [xx] Person of Melanie [xx] Attends Holiness of their Melanie [xx] Believes in Prayer [xx] Reads Bible or Yazdanism materials [] There are Spiritual issues to be addressed [employer] Interventions [xx] Prayer [xx] Active listening [xx] Non-anxious presence [xx] Spiritual/emotional support [] Crisis/trauma care [] Spiritual counseling [] Bereavement support [] Provided bereavement packet [] Provided Bible/devotional materials [] Provided toy/stuffed animal, coloring book to patient or family member [] Provided Communion [] Anointing/[place] [] Salvation [xx] Completed spiritual assessment [] Other: Impact on Illness or Injury [] Angry [] Fearful [xx] Anxious [] Often cries [] Exhaustion [] Unable to work [] Unable to attend presybeterian [xx] Unable to walk/stand [] Unable to read [] Unable to drive [] Unable to eat/drink [] Unable to sleep [] Unable to be with family [] Patient intubated [xx] Other: older gentleman who has developed mobility issues with one leg. Summary Patient was discouraged, but not surprised, when vein blockage in right leg could not be completely cleared. He has been accustomed to unlimited freedom of movement which is not restricted. Doctor has not said anything about therapy. He asked Director Of It [employer] to pray that he might get some kind of help such as physical therapy or exercise plans so he could become mobile again. we talked about this to some extent per his need to talk. [employer] prayed accordingly per his request. NOTE: While Director [employer] was visiting/praying with his roommate, nurse came in and told him that the doctor had just sent in orders for him to have in-home physical therapy and [facility] would help him get this all set up before he is to be discharged later today. Prayers already answered! Praise the Lord!!!! Time spent with patient 17 minutes Chaplain Tanesha Rachel
--- NOTE | 2019-11-08 14:30 | PC.NURSE ---
1412 patient discharged home at this time discharge instructions given and explained patient verbalized understanding of all restrictions site care, medications and follow up care. patient assisted to wheel chair and accompanied to private vehicle by staff patient alert oriented and in stable condition. Spouse Ayaka notified of discharge plans via phone.
== END 2019-11-08 14:12 | disposition home or self-care (01) ==
LOC: CCL 07:51 → CSU 11:18
PROVIDERS: PCP Nurse Practitioner Family; Visit Provider Internal Medicine Cardiovascular Disease
DX: E11.51 Type 2 diabetes mellitus with diabetic peripheral angiopathy without gangrene (principal); I77.1 Stricture of artery; E11.22 Type 2 diabetes mellitus with diabetic chronic kidney disease; I13.0 Hypertensive heart and chronic kidney disease with heart failure and stage 1 through stage 4 chronic kidney disease, or unspecified chronic kidney disease; N18.9 Chronic kidney disease, unspecified; I50.32 Chronic diastolic (congestive) heart failure; J43.9 Emphysema, unspecified; E78.5 Hyperlipidemia, unspecified; N26.1 Atrophy of kidney (terminal); N40.0 Benign prostatic hyperplasia without lower urinary tract symptoms; C61 Malignant neoplasm of prostate; Z85.46 Personal history of malignant neoplasm of prostate; Z79.82 Long term (current) use of aspirin; Z79.84 Long term (current) use of oral hypoglycemic drugs; Z79.899 Other long term (current) drug therapy; Z87.891 Personal history of nicotine dependence
CPT/HCPCS: 12345; 36415; 36416; 37228; 75625; 75716; 80048; 82962; 85025; 85610; C1725; C1760; C1769; C1887; C1894; J1644; J2250; J3010; J3490; J7030; Q0163; Q9967

== ENCOUNTER → 2019-11-15 09:58 | Outpatient (BNVA) | payer MEDICARE, SELFPAY | PROVIDERS: PCP Nurse Practitioner Family; Visit Provider Nurse Practitioner Family | DX: I73.9 Peripheral vascular disease, unspecified (principal) | CPT/HCPCS: 80048 ==

== ENCOUNTER 2019-12-07 17:04 | Emergency (ER) | payer MEDICARE, SELFPAY ==
[2019-12-07 17:14] VITALS: BP 109/58; PULSE 112; RESP 24; TEMP 36.4; O2SAT 95; BMI 25.8
[2019-12-07 17:21] VITALS: BP 109/58; PULSE 108; RESP 22; O2SAT 94
--- NOTE | 2019-12-07 17:33 | W.ED.WEAKNES ---
HPI - Weakness General: Chief complaint: Weakness Stated complaint: WEAKNESS; COVID POS Time Seen by Provider: 12/07/19 17:32 History of Present Illness: HPI Narrative: Patient is a 73-year-old male comes to the ED with weakness and tested positive for COVID recently. Past medical history of diabetes, CKD, HF and hypertension. Patient says he has no COVID symptoms such as fever, cough, shortness of breath, chest pain, sore throat, nasal drainage or congestion. Patient says he has been dealing with weakness in his legs for a while now. Denies any acute change in his lower leg weakness. Patient says he does not ambulate on his own and needs help to transfer up from his chair. Patient says his weakness in his legs has continued to progress. He has an appointment with the neurologist in [place] to evaluate his lower extremity weakness on December 23. Patient's glucose checked by EMS was over 300. Associated symptoms: Denies chest pain, chills, dysuria, fever(s), headache(s), nausea or vomiting Review of Systems Const: Reports: change in appetite (Decreased appetite) and fatigue; Denies: fever(s) or chills Eyes: Denies: change in vision or eye discomfort ENMT: Denies: throat pain, odynophagia, nasal discharge or nasal congestion Card: Denies: chest pain, palpitations, edema, swelling of feet/ankles, dyspnea on exertion or orthopnea Resp: Denies: dyspnea, productive cough or non-productive cough GI: Denies: abdominal pain, nausea, vomiting, diarrhea, constipation or hematochezia : Denies: flank pain, difficulty urinating, dysuria or hematuria Musc: Denies: neck pain, back pain or extremity swelling Skin/Breast: Denies: rash or new lesions Neuro: Reports: weakness in extremities (Lower extremities bilaterally); Denies: headache(s) or numbness in extremities PFSH ED PFSH: Medical History Benign essential HTN BPH (benign prostatic hyperplasia) Carpal tunnel syndrome CHF (congestive heart failure) 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, glomerular filtration rate (GFR) equal to or greater than 90 mL/min/1.73 square meter and albuminuria creatinine ratio between 30-299 mg/g Claudication in peripheral vascular disease Diabetes 1.5, 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 Peripheral arterial disease with history of revascularization Prostate cancer Surgical History Previous back surgery S/P inguinal hernia repair Family History Father COPD (chronic obstructive pulmonary disease) Social History Smoking and tobacco status: former smoker Alcohol intake: never Household members: spouse Marital status: service: Yes branch: [employer] Current occupational status: retired Current gender identity: Male Melanie/Confucianism: [employer] Physical Exam Const: COMMON NORMALS: patient oriented x3 and alert GENERAL APPEARANCE: cooperative and comfortable HENMT: COMMON NORMALS: normocephalic HEAD & SCALP: normocephalic MOUTH: Normal oral and palatal mucosa present THROAT: posterior oropharynx normal and uvula midline Eye: COMMON NORMALS: Equal, round and reactive pupils present PUPIL: Yes Equal, round and reactive pupils present Neck/C-Spine: COMMON NORMALS: supple GENERAL: Yes normal visual inspection Resp: COMMON NORMALS: No retractions, No use of accessory muscles and clear to auscultation bilaterally EFFORT & INSPECTION: Yes able to speak in complete sentences and Yes tachypneic (Respiration rate 24) AUSCULTATION: clear to auscultation bilaterally OTHER: Patient appears short of breath during history and physical exam. Cardio: COMMON NORMALS: regular rhythm, S1 normal heart sound present, S2 normal heart sound present, No gallops present (Cardio), No clicks present (Cardio), No murmurs present (Cardio) and Peripheral pulses 2+ throughout RATE: tachycardic RHYTHM: regular rhythm HEART SOUNDS: S1 normal heart sound present and S2 normal heart sound present PERIPHERAL PULSES: Peripheral pulses 2+ throughout GI: COMMON NORMALS: Normal to inspection, nondistended, normoactive bowel sounds present, Soft to palpation, non-tender and no masses PALPATION: Yes Soft to palpation : COMMON NORMALS: Yes no CVA tenderness BLADDER/KIDNEY EXAM: Yes no CVA tenderness Back/Pelvis: COMMON NORMALS: no CVA tenderness Extremity: COMMON NORMALS: normal to inspection and no pedal edema Neuro: COMMON NORMALS: patient oriented x3 and moves all extremities SENSORIUM/ORIENTATION: Yes alert Skin: GENERAL SKIN EXAM: dry skin Course Vital Signs: Vital signs: Vital Signs Temperature 97.6 F 12/07/19 17:14 Pulse Rate 92 12/07/19 21:00 Respiratory Rate 24 H 12/07/19 21:00 Blood Pressure 111/57 12/07/19 21:00 Pulse Oximetry 94 12/07/19 21:00 MDM - Weakness MDM Narrative: Medical decision making narrative: Patient is a 73-year-old male comes to the ED with bilateral leg weakness that is chronic in nature. Patient is actually seeing a neurologist in [place] for this complaint on December 23. Patient has a past medical history of referral artery disease, diabetes type 2, heart failure, hypertension and CKD. Patient says he has no acute complaints and did test positive for COVID 19 approximately 1 week ago. Patient says he is has no COVID symptoms such as fever, cough, shortness of breath, sore throat or nasal congestion. Blood pressure 109/58, pulse 112, respirations 24, temperature 97.6 and O2 saturation 95% on room air. Physical exam showed patient was tachycardic and had tachypneic. First EKG showed sinus tachycardia with SVCs-no ST segment elevation or depression seen. And 2-hour EKG showed normal sinus rhythm with SVCs. Troponin negative, CBC was unremarkable. CMP showed creatinine of 1.6 and a sodium of 130. Initial glucose taken by EMS was over 300. BMP 1190. Chest x-ray showed minimal dependent atelectasis of the right lung base. Patient received some IV fluids while here in the ED and was given 5 units of NovoLog. Patient's blood sugar went down to 148 before leaving unit. Patient's pulse improved to and down to 92. Patient was discharged and told to follow-up with his PCP in 7 to 10 days. Is also told to go to his previously scheduled neurology appointment on December 23 to evaluate his lower extremity weakness. Return to ED precautions given. Patient understood and agreed with plan. Lab Data: Attestation: I reviewed the patient's lab results. Labs: Lab Results 12/07/19 12/07/19 12/07/19 Range/Units 16:37 16:37 16:37 WBC 4.0 (4.0-10.0) 10^3/ uL RBC 3.57 L (4.1-5.3) 10^6/u L Hgb 12.3 (11.7-16.6) g/dL Hct 35.7 L (42.0-52.0) % MCV 100.0 H (80-94) fL MCH 34.5 H (28.0-34.0) pg MCHC 34.5 (30.0-36.0) g/dL RDW 13.8 (12.1-15.1) % Plt Count 131 (130-400) 10^3/c mm MPV 11.8 H (7.4-10.4) fL Neut % (Auto) 67.5 % Lymph % (Auto) 20.3 % [place] % (Auto) 11.1 % Eos % (Auto) 0.3 % Baso % (Auto) 0.3 % Neut # (Auto) 2.67 (1.8-7.7) 10^3/u L Lymph # (Auto) 0.8 (0.8-4.8) 10^3/u L [place] # (Auto) 0.4 (0.2-0.9) 10^3/u L Eos # (Auto) 0.0 (0.0-0.8) 10^3/u L Baso # (Auto) 0.0 (0.0-0.1) 10^3/u L Nucleated RBC % (a uto) 0 % Nucleated RBCs # 0.0 /100WBC Sodium 130 L (136-145) mmol/L Potassium 4.4 (3.5-5.1) mmol/L Chloride 95 L (98-107) mmol/L Carbon Dioxide 17 L (22-29) mmol/L Anion Gap 22.4 H (5-19) BUN 32 H (8-23) mg/dL Creatinine 1.6 H (0.7-1.2) mg/dL GFR Calculation Not Reportable Glucose 244 H (65-115) mg/dL POC Glucose (70-110) mg/dL Calculated Osmolal ity 285 (285-295) mOsm/k g Calcium 8.3 L (8.5-10.5) mg/dL Total Bilirubin 0.5 (0.15-1.2) mg/dL AST 90 H (0-40) U/L ALT 61 H (0-41) U/L Alkaline Phosphata se 62 (40-130) IU/L Troponin T Baselin e 78 H (0-15) ng/L Troponin T 120 Min [place] (0-15) ng/L Delta Troponin T (0-10) ABS# NT-Pro-B Natriuret Pep 1190 H (0-125) pg/mL Total Protein 6.5 L (6.6-8.7) g/dL Albumin 4.0 (3.5-5.2) g/dL Globulin 2.5 (1.3-4.6) g/dL 12/07/19 12/07/19 12/07/19 Range/Units 18:53 20:04 21:04 WBC (4.0-10.0) 10^3/ uL RBC (4.1-5.3) 10^6/u L Hgb (11.7-16.6) g/dL Hct (42.0-52.0) % MCV (80-94) fL MCH (28.0-34.0) pg MCHC (30.0-36.0) g/dL RDW (12.1-15.1) % Plt Count (130-400) 10^3/c mm MPV (7.4-10.4) fL Neut % (Auto) % Lymph % (Auto) % [place] % (Auto) % Eos % (Auto) % Baso % (Auto) % Neut # (Auto) (1.8-7.7) 10^3/u L Lymph # (Auto) (0.8-4.8) 10^3/u L [place] # (Auto) (0.2-0.9) 10^3/u L Eos # (Auto) (0.0-0.8) 10^3/u L Baso # (Auto) (0.0-0.1) 10^3/u L Nucleated RBC % (a uto) % Nucleated RBCs # /100WBC Sodium (136-145) mmol/L Potassium (3.5-5.1) mmol/L Chloride (98-107) mmol/L Carbon Dioxide (22-29) mmol/L Anion Gap (5-19) BUN (8-23) mg/dL Creatinine (0.7-1.2) mg/dL GFR Calculation Glucose (65-115) mg/dL POC Glucose 203 148 (70-110) mg/dL Calculated Osmolal ity (285-295) mOsm/k g Calcium (8.5-10.5) mg/dL Total Bilirubin (0.15-1.2) mg/dL AST (0-40) U/L ALT (0-41) U/L Alkaline Phosphata se (40-130) IU/L Troponin T Baselin e (0-15) ng/L Troponin T 120 Min [place] 65.45 H (0-15) ng/L Delta Troponin T -12.55 L (0-10) ABS# NT-Pro-B Natriuret Pep (0-125) pg/mL Total Protein (6.6-8.7) g/dL Albumin (3.5-5.2) g/dL Globulin (1.3-4.6) g/dL Imaging Data^: CXR: Attestation: I personally reviewed and interpreted this imaging study as follows: Radiologist's impression: [place] [address] XRay Report Signed Patient: Ji Ibarra Unit #: [id number] : 1945 Age/Sex: 73 / M ADM Date: 12/07/19 Loc: ER Room/Bed: Attending Dr: Ordering Provider/Ordering MD: Rich Miles Date of Service: 12/07/19 Procedure(s): XR chest 1V portable [id number] Accession Number(s): [id number] Report Number: [id number] PROCEDURE INFORMATION: Exam: XR Chest, 1 View Exam date and time: 12/07/2019 5:52 PM Age: 73 years old Clinical indication: Dyspnea; Patient HX: Weakness and SOB covid++ TECHNIQUE: Imaging protocol: XR of the chest Views: 1 view. COMPARISON: CT chest w con* [id number] 09/10/2019 10:02 AM FINDINGS: Lungs: Minimal dependent atelectasis right lung base. Pleural space: Unremarkable. No pleural effusion. No pneumothorax. Heart/Mediastinum: Cardiac structures and configuration with arteriosclerosis and coronary artery disease. Bones/joints: Mild scoliotic curvature of the spine. Right shoulder tendon anchors. XR/XR chest 1V portable [id number] IMPRESSION: Minimal dependent atelectasis right lung base. Dictated By: Rasheed Jackson Signed By: Rasheed Jackson Signed Date/Time: 12/07/191902 DD/ 00 EKG Data^: EKG 1: Attestation: I personally reviewed and interpreted this EKG as follows: EKG interpretation date: 12/07/19 Interpretation: Sinus tachycardia with frequent COOKER OPERATOR's. 109 bpm, no ST segment elevation or depression seen. EKG 2: Attestation: I personally reviewed and interpreted this EKG as follows: EKG interpretation date: 12/07/19 Interpretation: 2-hour EKG performed. Sinus rhythm with frequent COOKER OPERATOR's and bigeminal pattern. [address] segment elevation or depression seen. Discharge Plan Discharge Patient Disposition: Home Clinical Impression: Bilateral leg weakness, Hyperglycemia Condition: Stable Prescriptions: No Action allopurinol 100 mg tablet 100 mg PO DAILY RF: 0 metformin 500 mg tablet 1,000 mg PO BID RF: 0 metoprolol tartrate 50 mg tablet 50 mg PO BID RF: 0 lisinopril 20 mg tablet 20 mg PO DAILY RF: 0 aspirin [Adult Low Dose Aspirin] 81 mg tablet,delayed release (DR/EC) 81 mg PO DAILY RF: 0 atorvastatin 20 mg tablet 20 mg PO DAILY Qty: 90 RF: 3 clopidogrel 75 mg tablet 75 mg PO DAILY Qty: 30 RF: 0 Protonix 40 mg tablet,delayed release (DR/EC) 40 mg PO DAILY Qty: 30 RF: 0 Discharge Orders: Discharge Order (Routine); Ordered 12/07/19 Ordered By: Rich Miles Referrals: [facility] [place], [Family Provider] - Moni Pardo FNP [Primary Care Provider] - Discharge Diet: Diabetic Discharge Activity: Increase activity as tolerated Activity Restrictions/Additional Instructions: Follow-up with medical provider as directed. Go to your previously scheduled neurologist appointment on November 23. Continue taking home medications as prescribed. Return to the ER or your medical provider if condition worsens. Please read and understand discharge instructions. If any questions, please ask. Discharge Date/Time: 12/07/19 22:07 Coding Level of Care Code ED Marine Fire Fighter for Chg Fwd Exam Comprehensive
--- NOTE | 2019-12-07 17:49 | XRR_ITS ---
PROCEDURE INFORMATION: Exam: XR Chest, 1 View Exam date and time: 12/07/2019 5:52 PM Age: 73 years old Clinical indication: Dyspnea; Patient HX: Weakness and SOB covid++ TECHNIQUE: Imaging protocol: XR of the chest Views: 1 view. COMPARISON: CT chest w con* [id number] 09/10/2019 10:02 AM FINDINGS: Lungs: Minimal dependent atelectasis right lung base. Pleural space: Unremarkable. No pleural effusion. No pneumothorax. Heart/Mediastinum: Cardiac structures and configuration with arteriosclerosis and coronary artery disease. Bones/joints: Mild scoliotic curvature of the spine. Right shoulder tendon anchors. XR/XR chest 1V portable [id number] IMPRESSION: Minimal dependent atelectasis right lung base.
--- NOTE | 2019-12-07 17:54 | ECG_ITS ---
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 Measurements Intervals [place] Rate: 109 P: 79 [place]: 162 QRS: -27 QRSD: 76 T: 40 QT: 351 QTc: 475 Interpretive Statements SINUS TACHYCARDIA WITH FREQUENT SUPRAVENTRICULAR PREMATURE COMPLEXES BORDERLINE LEFT AXIS DEVIATION [QRS AXIS < -20] ABNORMAL RHYTHM ECG Compared to ECG 10/09/2018 00:24:27 Sinus rhythm no longer present T-wave abnormality no longer present Electronically Signed On 12-08-2019 19:08:59 CDT by Meredith Howe M.D. [email or web address] of [email or web address] [email or web address].[id number]
[2019-12-07 18:06] LABS: Basophils % 0.3 %; Eosinophils % 0.3 %; Hematocrit 35.7 % (42.0-52.0); Hemoglobin 12.3 g/dL (11.7-16.6); Lymphocytes # 0.8 10^3/uL (0.8-4.8); Lymphocytes % 20.3 %; Mean Corpuscular HGB Conc 34.5 g/dL (30.0-36.0); Mean Corpuscular Hemoglobin 34.5 pg (28.0-34.0); Mean Platelet Volume 11.8 fL (7.4-10.4); Monocytes # 0.4 10^3/uL (0.2-0.9); Monocytes % 11.1 %; Neutrophils # 2.67 10^3/uL (1.8-7.7); Neutrophils % 67.5 %; Nucleated Red Blood Cells % 0 %; Platelet Count 131 10^3/cmm (130-400); Red Blood Count 3.57 10^6/uL (4.1-5.3); Red Cell Distribution Width 13.8 % (12.1-15.1)
[2019-12-07 18:25] LABS: Troponin(5th) Baseline 78 ng/L (0-15)
[2019-12-07 18:34] LABS: Alanine Aminotransferase 61 U/L (0-41); Alkaline Phosphatase 62 IU/L (40-130); Anion Gap 22.4 (5-19); Aspartate Amino Transferase 90 U/L (0-40); Blood Urea Nitrogen 32 mg/dL (8-23); Calcium 8.3 mg/dL (8.5-10.5); Carbon Dioxide 17 mmol/L (22-29); Chloride 95 mmol/L (98-107); Globulin 2.5 g/dL (1.3-4.6); Glucose 244 mg/dL (65-115); NT Pro B Type Natriuretic Pept 1190 pg/mL (0-125); Osmolality Calculated 285 mOsm/kg (285-295); Potassium 4.4 mmol/L (3.5-5.1); Sodium 130 mmol/L (136-145); Total Bilirubin 0.5 mg/dL (0.15-1.2); Total Protein 6.5 g/dL (6.6-8.7)
[2019-12-07 19:39] LABS: Troponin 5 2HR 65.45 ng/L (0-15)
[2019-12-07 19:53] LABS: Troponin 5 2HR Delta -12.55 ABS# (0-10)
--- NOTE | 2019-12-07 19:54 | ECG_ITS ---
[facility] Test Date: 2019-12-07 Pat Name: Ji Ibarra Department: Room: Gender: Male Regional Account Director: : 1945 Requested By: Rich Miles Order Number: [id number] Merino MD: Meredith Howe M.D. Measurements Intervals [place] Rate: 92 P: -1 [place]: 195 QRS: -16 QRSD: 88 T: 63 QT: 314 QTc: 389 Interpretive Statements SINUS RHYTHM WITH FREQUENT SUPRAVENTRICULAR PREMATURE COMPLEXES IN A BIGEMINAL PATTERN NONSPECIFIC T-WAVE ABNORMALITY ABNORMAL RHYTHM ECG Compared to ECG 10/09/2018 00:24:27 No significant changes Electronically Signed On 12-08-2019 19:21:27 CDT by Meredith Howe M.D. [id number]
[2019-12-07 20:08] LABS: Glucose Point of Care 203 mg/dL (70-110)
--- NOTE | 2019-12-07 20:08 | PC.NURSE ---
Blood glucose is 203 ER DIRECTOR PATIENT notified
[2019-12-07 21:00] VITALS: BP 111/57; PULSE 92; RESP 24; O2SAT 94
[2019-12-07 21:09] LABS: Glucose Point of Care 148 mg/dL (70-110)
== END 2019-12-07 22:07 | disposition home or self-care (01) ==
PROVIDERS: Emergency Provider Physician Assistant; PCP Nurse Practitioner Family
DX: R53.1 Weakness (principal); E13.65 Other specified diabetes mellitus with hyperglycemia; U07.1 COVID-19; Z79.01 Long term (current) use of anticoagulants; Z79.02 Long term (current) use of antithrombotics/antiplatelets; Z79.82 Long term (current) use of aspirin; I11.0 Hypertensive heart disease with heart failure; I50.30 Unspecified diastolic (congestive) heart failure; Z85.46 Personal history of malignant neoplasm of prostate; Z87.891 Personal history of nicotine dependence
CPT/HCPCS: 12345; 36415; 36416; 71045; 80053; 82962; 83880; 84484; 85025; 87040; 93005; 96372; 99283; 99284; J1815

== ENCOUNTER 2019-12-09 16:42 | Inpatient (IN) | payer MEDICARE, SELFPAY ==
[2019-12-09 16:45] VITALS: BP 86/59; PULSE 105; RESP 15; TEMP 36.4; O2SAT 90; BMI 25.8
--- NOTE | 2019-12-09 16:53 | XRR_ITS ---
PROCEDURE INFORMATION: Exam: XR Chest, 1 View Exam date and time: 12/09/2019 5:47 PM Age: 73 years old Clinical indication: Shortness of breath and other: Hypoxia TECHNIQUE: Imaging protocol: XR of the chest Views: 1 view. COMPARISON: CR (CHEST, ) 12/07/2019 6:08 PM FINDINGS: Tubes, catheters and devices: Post surgical suture anchors right shoulder. Lungs: Likely calcified granuloma superior right upper lobe. Interstitial thickening or atelectasis lower lungs persist. Minor right upper lobe and left perihilar mid lung interstitial opacities. Pleural space: Unremarkable. No pleural effusion. No pneumothorax. Heart/Mediastinum: Unremarkable. No cardiomegaly. Bones/joints: Unremarkable. XR/XR chest 1V portable [id number] IMPRESSION: Minor interstitial thickening or atelectasis lower lungs. Additional minor right upper lobe and left perihilar mid lung interstitial opacities.
--- NOTE | 2019-12-09 17:10 | ED_ITS ---
Documented by User: Pérez López DO 12/14/19 15:00 HPI - SOB/Dyspnea General: Chief Complaint: Nausea/Vomiting/Diarrhea Stated Complaint: BOWEL INCONT, SOB Time Seen by Provider: 12/09/19 16:46 History of Present Illness: HPI Narrative: 73-year-old male presents to the emergency room via EMS. Comes in complaining of bowel incontinence with diarrhea he is also having increasing shortness of breath on room air he sats in the mid to upper 80s he corrects quickly with 2 L by nasal cannula supplemental oxygen. He states he was tested 10 days ago positive for COVID however his told EMS he tested last week it was either on Monday or Monday. He had been here and evidently was sent transferred to [facility] for a vascular procedure. He does not have a record of his positive test there is one old test from late October that was negative. He has had a cough along with this and some myalgias. MD elicited complaint: shortness of breath and cough Pertinent past history: other (COVID-19 per patient report) Onset (ago): day(s) Timing: constant Severity: moderate Exacerbating factors: exertion Relieving factors: oxygen and rest Known history of: diabetes and other (Hypertension, coronary artery disease) Associated symptoms: Reports chest congestion, cough, fever(s), lightheadedness, myalgias and nausea; Deny abdominal pain, chest pain, diaphoresis, dizziness, extremity pain, hemoptysis, orthopnea, palpitations, paresthesias, polydipsia, polyuria, rash, sense of impending doom, syncope or vomiting Treatment prior to arrival: oxygen Review of Systems Const: Reports: fever(s); Denies: diaphoresis ENMT: Denies: throat pain, ear or mastoid pain, nasal discharge or nasal congestion Card: Reports: lightheadedness; Denies: chest pain, palpitations, syncope or orthopnea Resp: Reports: chest congestion; Denies: hemoptysis GI: Reports: nausea; Denies: abdominal pain or vomiting : Denies: flank pain, dysuria, urinary frequency or urinary urgency Musc: Denies: extremity pain Skin/Breast: Denies: rash or pruritus Neuro: Denies: dizziness Endo: Denies: polyuria or polydipsia PFS ED PFSH: Medical History Benign essential HTN BPH (benign prostatic hyperplasia) Carpal tunnel syndrome CHF (congestive heart failure) 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, glomerular filtration rate (GFR) equal to or greater than 90 mL/min/1.73 square meter and albuminuria creatinine ratio between 30-299 mg/g Claudication in peripheral vascular disease Diabetes 1.5, 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 Peripheral arterial disease with history of revascularization Prostate cancer Surgical History Previous back surgery S/P inguinal hernia repair Family History Father COPD (chronic obstructive pulmonary disease) Social History Smoking and tobacco status: former smoker Alcohol intake: never Household members: spouse Marital status: service: Yes branch: [employer] Current occupational status: retired Current gender identity: Male 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 [employer] Physical Exam Const: COMMON NORMALS: no acute distress GENERAL APPEARANCE: cooperative and comfortable ORIENTATION/CONSCIOUSNESS: Yes awake, Yes oriented to person, Yes oriented to place and Yes oriented to time HENMT: COMMON NORMALS: normocephalic and atraumatic HEAD & SCALP: normocephalic and atraumatic Eye: COMMON NORMALS: Equal, round and reactive pupils present, EOMs intact bilaterally, conjunctivae normal and no scleral icterus CONJUNCTIVA: Yes conjunctivae normal PUPIL: Yes Equal, round and reactive pupils present Neck/C-Spine: COMMON NORMALS: full ROM, no lymphadenopathy, supple and no JVD Lymph: LYMPHATIC: no lymphadenopathy noted and no lymphedema noted Resp: COMMON NORMALS: normal respiratory effort, No retractions and No use of accessory muscles AUSCULTATION: crackles Laterality: bilateral and wheezes (Scant expiratory wheezes) expiratory wheezes Cardio: COMMON NORMALS: no JVD, regular rate, regular rhythm and No murmurs present (Cardio) RATE: regular rate RHYTHM: regular rhythm GI: COMMON NORMALS: Soft to palpation and No hepatosplenomegaly present AUSCULTATION: Yes normoactive bowel sounds PALPATION: Yes Soft to palpation, No Tenderness to palpation present (GI), No Guarding due to palpation present (GI) and Yes No hepatosplenomegaly present Extremity: COMMON NORMALS: normal to inspection, capillary refill normal, no clubbing, cyanosis or edema, no calf tenderness and no pedal edema Neuro: SENSORIUM/ORIENTATION: Yes oriented to person, Yes oriented to place and Yes oriented to time Skin: COMMON NORMALS: no rashes or lesions noted GENERAL SKIN EXAM: no rashes or lesions noted Course Vital Signs: Vital signs: Vital Signs Temperature 98.2 F 12/14/19 04:00 Pulse Rate 68 12/14/19 13:00 Respiratory Rate 18 12/14/19 13:00 Blood Pressure 144/89 12/14/19 09:00 Pulse Oximetry 92 12/14/19 13:00 MDM - SOB/Dyspnea MDM Narrative: Medical decision making narrative: Initial patient evaluation done labs ordered patient is on oxygen sats have improved report in outpatient setting that he was in the 80s. Will go ahead and transfer his care to Dr. Golden change of shift. Please see her notes for final diagnosis and disposition Lab Data: Labs: Lab Results 12/09/19 12/09/19 12/09/19 Range/Units 17:07 17:07 17:07 WBC 5.1 (4.0-10.0) 10^3/ uL RBC 3.33 L (4.1-5.3) 10^6/u L Hgb 11.4 L (11.7-16.6) g/dL Hct 32.5 L (42.0-52.0) % MCV 97.6 H (80-94) fL MCH 34.2 H (28.0-34.0) pg MCHC 35.1 (30.0-36.0) g/dL RDW 13.8 (12.1-15.1) % Plt Count 141 (130-400) 10^3/c mm MPV 10.9 H (7.4-10.4) fL Neut % (Auto) 75.6 % Lymph % (Auto) 13.1 % [place] % (Auto) 10.5 % Eos % (Auto) 0.0 % Baso % (Auto) 0.2 % Neut # (Auto) 3.88 (1.8-7.7) 10^3/u L Lymph # (Auto) 0.7 L (0.8-4.8) 10^3/u L [place] # (Auto) 0.5 (0.2-0.9) 10^3/u L Eos # (Auto) 0.0 (0.0-0.8) 10^3/u L Baso # (Auto) 0.0 (0.0-0.1) 10^3/u L Nucleated RBC % (a uto) 0 % Nucleated RBCs # 0.0 /100WBC Fibrinogen 444 (174-498) mg/dL D-Dimer 1.26 H (0-0.59) ug/mIFE U Sodium 130 L (136-145) mmol/L Potassium 4.4 (3.5-5.1) mmol/L Chloride 98 (98-107) mmol/L Carbon Dioxide 16 L (22-29) mmol/L Anion Gap 20.4 H (5-19) BUN 32 H (8-23) mg/dL Creatinine 1.5 H (0.7-1.2) mg/dL GFR Calculation Not Reportable Glucose 154 H (65-115) mg/dL Calculated Osmolal ity 280 L (285-295) mOsm/k g Lactic Acid (0.5-2.2) mmol/L Lactic Acid (Sepsi s) (0.5-2.2) mmol/L Calcium 8.3 L (8.5-10.5) mg/dL Ferritin 2180 H (30-400) ng/mL Total Bilirubin 0.6 (0.15-1.2) mg/dL AST 92 H (0-40) U/L ALT 61 H (0-41) U/L Alkaline Phosphata se 56 (40-130) IU/L Lactate Dehydrogen ase 295 H (135-225) U/L C-Reactive Protein 34.9 H (0.0-4.9) mg/L Total Protein 6.4 L (6.6-8.7) g/dL Albumin 3.5 (3.5-5.2) g/dL Globulin 2.9 (1.3-4.6) g/dL Procalcitonin 0.47 (0-0.5) ng/mL SARS-CoV-2 Ag (Rap id) (Negative) 12/09/19 12/09/19 12/09/19 Range/Units 17:07 17:07 23:32 WBC (4.0-10.0) 10^3/ uL RBC (4.1-5.3) 10^6/u L Hgb (11.7-16.6) g/dL Hct (42.0-52.0) % MCV (80-94) fL MCH (28.0-34.0) pg MCHC (30.0-36.0) g/dL RDW (12.1-15.1) % Plt Count (130-400) 10^3/c mm MPV (7.4-10.4) fL Neut % (Auto) % Lymph % (Auto) % [place] % (Auto) % Eos % (Auto) % Baso % (Auto) % Neut # (Auto) (1.8-7.7) 10^3/u L Lymph # (Auto) (0.8-4.8) 10^3/u L [place] # (Auto) (0.2-0.9) 10^3/u L Eos # (Auto) (0.0-0.8) 10^3/u L Baso # (Auto) (0.0-0.1) 10^3/u L Nucleated RBC % (a uto) % Nucleated RBCs # /100WBC Fibrinogen (174-498) mg/dL D-Dimer (0-0.59) ug/mIFE U Sodium (136-145) mmol/L Potassium (3.5-5.1) mmol/L Chloride (98-107) mmol/L Carbon Dioxide (22-29) mmol/L Anion Gap (5-19) BUN (8-23) mg/dL Creatinine (0.7-1.2) mg/dL GFR Calculation Glucose (65-115) mg/dL Calculated Osmolal ity (285-295) mOsm/k g Lactic Acid 4.7 H* (0.5-2.2) mmol/L Lactic Acid (Sepsi s) 1.4 (0.5-2.2) mmol/L Calcium (8.5-10.5) mg/dL Ferritin (30-400) ng/mL Total Bilirubin (0.15-1.2) mg/dL AST (0-40) U/L ALT (0-41) U/L Alkaline Phosphata se (40-130) IU/L Lactate Dehydrogen ase (135-225) U/L C-Reactive Protein (0.0-4.9) mg/L Total Protein (6.6-8.7) g/dL Albumin (3.5-5.2) g/dL Globulin (1.3-4.6) g/dL Procalcitonin (0-0.5) ng/mL SARS-CoV-2 Ag (Rap id) Positive H (Negative) Discharge Plan Discharge Patient Disposition: Admitted As Inpatient Admit Provider: Suzie Jasso Clinical Impression: COVID-19 Condition: Stable Referrals: [facility], [Family Provider] - Moni Pardo FNP [Primary Care Provider] - Discharge Date/Time: 12/10/19 00:26 Coding Level of Care Code ED Marketing Strategy Analyst for Chg Fwd Exam Comprehensive Documented by User: Annabel Golden MD 12/10/19 04:35 HPI - SOB/Dyspnea General: Chief Complaint: Nausea/Vomiting/Diarrhea Stated Complaint: BOWEL INCONT, SOB Time Seen by Provider: 12/09/19 16:46 PFSH ED PFSH: Medical History Benign essential HTN BPH (benign prostatic hyperplasia) Carpal tunnel syndrome CHF (congestive heart failure) 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, glomerular filtration rate (GFR) equal to or greater than 90 mL/min/1.73 square meter and albuminuria creatinine ratio between 30-299 mg/g Claudication in peripheral vascular disease Diabetes 1.5, 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 He was hypoxic on room air. On 3 L nasal cannula his sats are now about 94%. Blood pressure is soft ranging from the 80s to 90 systolic. He had Austyn been given a 500 cc bolus of fluid and I am giving him another 500 cc bolus. I have also ordered Decadron and remdesivir. He does have a positive COVID test here and had a positive test between 7 and 10 days ago. I spoke to his and confirm this history as the patient was uncertain. She also tells me that he has been having weakness in his legs and difficulty walking. It is been suggested that this could be related to an arterial blockage in 1 of his legs or to a back problem. He has also had incontinence of stool in the past couple of days which potentially could be related to his back as well. On my exam he has sensation in his legs. I did not attempt to walk him. He primarily is here today because of the worsening COVID symptoms. He is having signs and symptoms of COVID pneumonia with hypoxia, shortness of breath, cough. He has an x-ray and a CT scan that reflected COVID changes. He has no blood clots on his CT. I will try to arrange for an admission. We have no beds here and we will call around and see what beds are available. I spoke with the patient and his about this and they are both in agreement with this plan. Reevaluation(s): Reevaluation #1: A bed did become available here at this facility and the patient will be admitted here rather than transferred. Vital Signs: Vital signs: Vital Signs Temperature 98.2 F 12/14/19 04:00 Pulse Rate 68 12/14/19 13:00 Respiratory Rate 18 12/14/19 13:00 Blood Pressure 144/89 12/14/19 09:00 Pulse Oximetry 92 12/14/19 13:00 MDM - SOB/Dyspnea Lab Data: Labs: Lab Results 12/09/19 12/09/19 12/09/19 Range/Units 17:07 17:07 17:07 WBC 5.1 (4.0-10.0) 10^3/ uL RBC 3.33 L (4.1-5.3) 10^6/u L Hgb 11.4 L (11.7-16.6) g/dL Hct 32.5 L (42.0-52.0) % MCV 97.6 H (80-94) fL MCH 34.2 H (28.0-34.0) pg MCHC 35.1 (30.0-36.0) g/dL RDW 13.8 (12.1-15.1) % Plt Count 141 (130-400) 10^3/c mm MPV 10.9 H (7.4-10.4) fL Neut % (Auto) 75.6 % Lymph % (Auto) 13.1 % [place] % (Auto) 10.5 % Eos % (Auto) 0.0 % Baso % (Auto) 0.2 % Neut # (Auto) 3.88 (1.8-7.7) 10^3/u L Lymph # (Auto) 0.7 L (0.8-4.8) 10^3/u L [place] # (Auto) 0.5 (0.2-0.9) 10^3/u L Eos # (Auto) 0.0 (0.0-0.8) 10^3/u L Baso # (Auto) 0.0 (0.0-0.1) 10^3/u L Nucleated RBC % (a uto) 0 % Nucleated RBCs # 0.0 /100WBC Fibrinogen 444 (174-498) mg/dL D-Dimer 1.26 H (0-0.59) ug/mIFE U Sodium 130 L (136-145) mmol/L Potassium 4.4 (3.5-5.1) mmol/L Chloride 98 (98-107) mmol/L Carbon Dioxide 16 L (22-29) mmol/L Anion Gap 20.4 H (5-19) BUN 32 H (8-23) mg/dL Creatinine 1.5 H (0.7-1.2) mg/dL GFR Calculation Not Reportable Glucose 154 H (65-115) mg/dL Calculated Osmolal ity 280 L (285-295) mOsm/k g Lactic Acid (0.5-2.2) mmol/L Lactic Acid (Sepsi s) (0.5-2.2) mmol/L Calcium 8.3 L (8.5-10.5) mg/dL Ferritin 2180 H (30-400) ng/mL Total Bilirubin 0.6 (0.15-1.2) mg/dL AST 92 H (0-40) U/L ALT 61 H (0-41) U/L Alkaline Phosphata se 56 (40-130) IU/L Lactate Dehydrogen ase 295 H (135-225) U/L C-Reactive Protein 34.9 H (0.0-4.9) mg/L Total Protein 6.4 L (6.6-8.7) g/dL Albumin 3.5 (3.5-5.2) g/dL Globulin 2.9 (1.3-4.6) g/dL Procalcitonin 0.47 (0-0.5) ng/mL SARS-CoV-2 Ag (Rap id) (Negative) 12/09/19 12/09/19 12/09/19 Range/Units 17:07 17:07 23:32 WBC (4.0-10.0) 10^3/ uL RBC (4.1-5.3) 10^6/u L Hgb (11.7-16.6) g/dL Hct (42.0-52.0) % MCV (80-94) fL MCH (28.0-34.0) pg MCHC (30.0-36.0) g/dL RDW (12.1-15.1) % Plt Count (130-400) 10^3/c mm MPV (7.4-10.4) fL Neut % (Auto) % Lymph % (Auto) % [place] % (Auto) % Eos % (Auto) % Baso % (Auto) % Neut # (Auto) (1.8-7.7) 10^3/u L Lymph # (Auto) (0.8-4.8) 10^3/u L [place] # (Auto) (0.2-0.9) 10^3/u L Eos # (Auto) (0.0-0.8) 10^3/u L Baso # (Auto) (0.0-0.1) 10^3/u L Nucleated RBC % (a uto) % Nucleated RBCs # /100WBC Fibrinogen (174-498) mg/dL D-Dimer (0-0.59) ug/mIFE U Sodium (136-145) mmol/L Potassium (3.5-5.1) mmol/L Chloride (98-107) mmol/L Carbon Dioxide (22-29) mmol/L Anion Gap (5-19) BUN (8-23) mg/dL Creatinine (0.7-1.2) mg/dL GFR Calculation Glucose (65-115) mg/dL Calculated Osmolal ity (285-295) mOsm/k g Lactic Acid 4.7 H* (0.5-2.2) mmol/L Lactic Acid (Sepsi s) 1.4 (0.5-2.2) mmol/L Calcium (8.5-10.5) mg/dL Ferritin (30-400) ng/mL Total Bilirubin (0.15-1.2) mg/dL AST (0-40) U/L ALT (0-41) U/L Alkaline Phosphata se (40-130) IU/L Lactate Dehydrogen ase (135-225) U/L C-Reactive Protein (0.0-4.9) mg/L Total Protein (6.6-8.7) g/dL Albumin (3.5-5.2) g/dL Globulin (1.3-4.6) g/dL Procalcitonin (0-0.5) ng/mL SARS-CoV-2 Ag (Rap id) Positive H (Negative) Discharge Plan Discharge Patient Disposition: Admitted As Inpatient Admit Provider: Suzie Jasso Clinical Impression: COVID-19 Condition: Stable Referrals: [facility], [Family Provider] - Moni Pardo FNP [Primary Care Provider] - Discharge Date/Time: 12/10/19 00:26 Coding Level of Care Code ED Marketing Strategy Analyst for Chg Fwd Exam Comprehensive
[2019-12-09 17:14] LABS: Basophils % 0.2 %; Hematocrit 32.5 % (42.0-52.0); Hemoglobin 11.4 g/dL (11.7-16.6); Lymphocytes # 0.7 10^3/uL (0.8-4.8); Lymphocytes % 13.1 %; Mean Corpuscular HGB Conc 35.1 g/dL (30.0-36.0); Mean Corpuscular Hemoglobin 34.2 pg (28.0-34.0); Mean Corpuscular Volume 97.6 fL (80-94); Mean Platelet Volume 10.9 fL (7.4-10.4); Monocytes # 0.5 10^3/uL (0.2-0.9); Monocytes % 10.5 %; Neutrophils # 3.88 10^3/uL (1.8-7.7); Neutrophils % 75.6 %; Nucleated Red Blood Cells % 0 %; Platelet Count 141 10^3/cmm (130-400); Red Blood Count 3.33 10^6/uL (4.1-5.3); Red Cell Distribution Width 13.8 % (12.1-15.1); White Blood Count 5.1 10^3/uL (4.0-10.0)
[2019-12-09 17:31] LABS: Lactic Sepsis W/Reflex 4.7 mmol/L (0.5-2.2)
[2019-12-09 17:39] LABS: Procalcitonin 0.47 ng/mL (0-0.5)
[2019-12-09 17:50] LABS: Alanine Aminotransferase 61 U/L (0-41); Albumin Level 3.5 g/dL (3.5-5.2); Alkaline Phosphatase 56 IU/L (40-130); Anion Gap 20.4 (5-19); Aspartate Amino Transferase 92 U/L (0-40); Blood Urea Nitrogen 32 mg/dL (8-23); C Reactive Protein 34.9 mg/L (0.0-4.9); Calcium 8.3 mg/dL (8.5-10.5); Carbon Dioxide 16 mmol/L (22-29); Chloride 98 mmol/L (98-107); Globulin 2.9 g/dL (1.3-4.6); Glucose 154 mg/dL (65-115); Lactate Dehydrogenase 295 U/L (135-225); Osmolality Calculated 280 mOsm/kg (285-295); Potassium 4.4 mmol/L (3.5-5.1); Sodium 130 mmol/L (136-145); Total Bilirubin 0.6 mg/dL (0.15-1.2); Total Protein 6.4 g/dL (6.6-8.7)
[2019-12-09 18:01] LABS: Fibrinogen 444 mg/dL (174-498)
[2019-12-09 18:03] LABS: D Dimer 1.26 ug/mIFEU (0-0.59)
[2019-12-09 18:13] LABS: Ferritin 2180 ng/mL (30-400)
--- NOTE | 2019-12-09 18:14 | CTR_ITS ---
PROCEDURE INFORMATION: Exam: CT Angiography Chest With Contrast Exam date and time: 12/09/2019 6:44 PM Age: 73 years old Clinical indication: Shortness of breath; Additional info: Dyspnea TECHNIQUE: Imaging protocol: Computed tomographic angiography of the chest with intravenous contrast. 3D rendering (Not supervised by radiologist): MIP and/or 3D reconstructed images were created by the technologist. Radiation optimization: All CT scans at this facility use at least one of these dose optimization techniques: automated exposure control; mA and/or kV adjustment per patient size (includes targeted exams where dose is matched to clinical indication); or iterative reconstruction. Contrast material: VISI 320; Contrast volume: 75 ml; Contrast route: INTRAVENOUS (IV); COMPARISON: CT chest w con* [id number] 09/10/2019 10:02 AM RADIATION DOSE METRICS: Total DLP (mGy-cm): 627.94 FINDINGS: Pulmonary arteries: No visible pulmonary embolism/pulmonary arterial thrombus. Aorta: The thoracic aorta is nonaneurysmal. Mild arterial sclerotic disease. No visible intimal flap or dissection. Lungs: Examination reveals bilateral patches of ground-glass interstitial opacities, most in a peripheral distribution, consistent with active interstitial pneumonitis. Consideration might be given to Covid-19 pneumonitis. No visible consolidated alveolar airspace disease. Pleural space: Unremarkable. No pneumothorax. No pleural effusion. Heart: Coronary artery disease. No visible pericardial effusion. Lymph nodes: No visible active mediastinal or hilar lymphadenopathy. Evidence of antecedent granulomatous disease. Gallbladder and bile ducts: Cholelithiasis. 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 No visible acute osseous abnormality. No visible osteolytic or osteoblastic destructive process. Soft tissues: Unremarkable for age. CT/CT angio chest PE protcl [id number] IMPRESSION: 1. No visible pulmonary embolism/pulmonary arterial thrombus. 2. Examination reveals bilateral patches of ground-glass interstitial opacities, most in a peripheral distribution, consistent with active interstitial pneumonitis. Consideration might be given to Covid-19 pneumonitis. 3. Coronary artery disease. 4. Antecedent granulomatous disease. 5. Cholelithiasis. Radiation Dose CTDIVOL = (mGy): DLP = 627.94 (mGy-cm)
[2019-12-09 18:17] LABS: SARS Covid-2 Antigen Positive (Negative)
[2019-12-09] MEDS: sodium chloride 0.9% 500 ML 999 ML IV ×2 (18:47→21:11)
--- NOTE | 2019-12-09 18:56 | PC.NURSE ---
Read and agree with assessment and triage assessment.
[2019-12-09 18:57] LABS: Reflex Lactate Order REFLEX LACTIC ORDERD
[2019-12-09] MEDS: iodixanol 320 mg/mL 100mL Btl IV (18:57)
[2019-12-09] MEDS: dexamethasone 4 mg/mL INJ 6 MG IVP (21:10)
[2019-12-09 21:36] VITALS: BP 118/65; PULSE 90; RESP 21; O2SAT 97
[2019-12-09 22:25] VITALS: BP 102/62; PULSE 97; RESP 18; O2SAT 95
[2019-12-09 23:16] VITALS: BP 106/67; PULSE 98; RESP 16; O2SAT 94
[2019-12-10] VITALS (31 sets, daily range): BP systolic 97–128; BP diastolic 59–76; PULSE 64–97; RESP 16–36; TEMP 36.4–37.3; O2SAT 89–98
[2019-12-10 00:01] LABS: Lactic Acid level (Lactate) 1.4 mmol/L (0.5-2.2)
[2019-12-10] MEDS: albuterol 8 gm MDI 2 PUFF INHALATION ×2 (01:27→20:45)
[2019-12-10] MEDS: dexamethasone 4 mg/mL INJ 6 MG IVP (01:34)
[2019-12-10] MEDS: enoxaparin 40 mg/0.4 mL Syringe SUBCUT (01:34)
[2019-12-10 06:01] LABS: ABG PCO2 28.1 mmHg (35-45); ABG PH Result 7.43 (7.35-7.45); Arterial Blood Gas Hematocrit 34.3 % (42-52); Base Excess ABG -4.6 mmol/L (-2.0-2.0); Blood Gas Allen Test Pos; Blood Gas Sample Type Arterial; HCO3 ABG 18.6 mmol/L (22-26); PO2 ABG 77.7 mmHg (80.0-100.0)
[2019-12-10 06:02] LABS: Blood Gas Operator Identificat JB; Blood Gas Sample Site Radial, right; Oxygen Device NC
[2019-12-10 06:03] LABS: Hemoglobin 10.1 g/dL (11.7-16.6); Lymphocytes # 0.2 10^3/uL (0.8-4.8); Lymphocytes % 7.2 %; Mean Corpuscular HGB Conc 33.7 g/dL (30.0-36.0); Mean Corpuscular Hemoglobin 33.6 pg (28.0-34.0); Mean Corpuscular Volume 99.7 fL (80-94); Mean Platelet Volume 11.2 fL (7.4-10.4); Monocytes # 0.2 10^3/uL (0.2-0.9); Monocytes % 5.9 %; Neutrophils # 2.62 10^3/uL (1.8-7.7); Neutrophils % 85.6 %; Nucleated Red Blood Cells % 0 %; Platelet Count 121 10^3/cmm (130-400); Red Blood Count 3.01 10^6/uL (4.1-5.3); Red Cell Distribution Width 13.7 % (12.1-15.1); White Blood Count 3.1 10^3/uL (4.0-10.0)
[2019-12-10 06:19] LABS: INR 0.97 (0.8-1.2)
[2019-12-10 06:20] LABS: Partial Thromboplastin Time 35.8 SECONDS (23.9-36.7)
[2019-12-10 06:35] LABS: Troponin T (5th) Once 60 ng/L (0-15)
[2019-12-10 06:41] LABS: Alanine Aminotransferase 51 U/L (0-41); Albumin Level 3.3 g/dL (3.5-5.2); Alkaline Phosphatase 55 IU/L (40-130); Anion Gap 18.6 (5-19); Aspartate Amino Transferase 76 U/L (0-40); Blood Urea Nitrogen 29 mg/dL (8-23); Calcium 7.9 mg/dL (8.5-10.5); Carbon Dioxide 17 mmol/L (22-29); Chloride 102 mmol/L (98-107); Globulin 2.2 g/dL (1.3-4.6); Glucose 233 mg/dL (65-115); Magnesium 1.6 mg/dL (1.7-2.3); Osmolality Calculated 289 mOsm/kg (285-295); Potassium 4.6 mmol/L (3.5-5.1); Sodium 133 mmol/L (136-145); Total Bilirubin 0.6 mg/dL (0.15-1.2); Total Protein 5.5 g/dL (6.6-8.7)
[2019-12-10 07:23] LABS: NT Pro B Type Natriuretic Pept 1326 pg/mL (0-125); Procalcitonin 0.33 ng/mL (0-0.5)
[2019-12-10 07:34] LABS: Lactate Dehydrogenase 273 U/L (135-225)
[2019-12-10] MEDS: lisinopril 10 mg Tablet PO (09:06)
[2019-12-10] MEDS: metoprolol tartrate 50 mg Tablet 25 MG PO ×2 (09:06→17:13)
[2019-12-10] MEDS: atorvastatin 40 mg Tablet 20 MG PO (09:06)
[2019-12-10] MEDS: clopidogrel 75 mg Tablet PO (09:06)
[2019-12-10] MEDS: ascorbic acid 500 mg Tablet 1000 MG PO (09:06)
[2019-12-10] MEDS: aspirin 81 mg EC Tablet PO (09:06)
[2019-12-10] MEDS: zinc gluconate 50 mg Tablet PO (09:06)
[2019-12-10] MEDS: pantoprazole DR 40 mg Tablet PO (09:06)
[2019-12-10] MEDS: allopurinol 100 mg Tablet PO (09:10)
--- NOTE | 2019-12-10 11:29 | P.HP_ITS ---
Providers/Chief Complaint Admitting Physician: Suzie Jasso MD Primary Care Provider: RICARDO Trujillo Chief Complaint: BOWEL INCONT, SOB History of Present Illness Admitted last night. Ji Ibarra is a 73 year old male past medical history of metastatic prostate cancer on chemotherapy, CKD stage II, type 2 diabetes mellitus, peripheral artery disease with history of revascularization, with recent peripheral angiogram showing Single-vessel runoff to the foot through left anterior tibial artery had proximal 80% highly calcified stenosis it was treated with balloon angioplasty with good result which reduced lesion to less than 40%. Good blood flow noted in that single vessel. He was discharged on November 07. Patient was seen in Dr. Benavides's office on November 14 after which he was referred to a vascular surgeon in [facility]. Patient will at [facility] for 3 days in hospital. He states since discharge from [facility] he has not been feeling well. For last 3 days he has been having extreme weakness with legs feeling like jelly when he would try to walk along with 2 episodes of diarrhea last night, mild shortness of breath and cough with expectoration. Expectoration is mostly white mucoid in color without any blood loom changer foul smell. He does not complain of any fever, headache, dizziness, chest pain, palpitation, loss of sense of taste or smell, dysuria, weakness in any of his limbs more than usual, claudication pain, Muscle pain. He does state that he has been worked up as an outpatient for possible lumbar surgery has declined his outpatient claudication symptoms are most likely because of lumbar radiculopathy. On admission his blood work showed a white count of 5.1, hemoglobin of 11.4, platelet of 141, d-dimer 1.26, sodium of 130, creatinine of 1.5, bicarb of 1.6, lactate of 4.7 we will reduce him to 1.4 after fluid resuscitation, ferritin of 2180, AST/ALT of 92/61, LDH of 295, CRP of 34.9, pro-Juanito of 0.47, rapid COVID antigen negative, CTA PE protocol done on admission showing no visible PE along with bilateral patchy groundglass interstitial opacities consistent with COVID- 19 pneumonia. Review of Systems General: Reports: 10 or more systems reviewed and unremarkable except in HPI and below Const: Reports: fever(s) and malaise; Denies: chills, body aches, change in appetite, change in weight, night sweats, diaphoresis, change in sleep pattern, daytime sleepiness or snoring Eyes: Denies: change in vision, blurry vision, photophobia, eye discomfort or eye discharge ENMT: Denies: throat pain, enlarged tonsils, hoarseness, mouth pain, oral sores, dry mouth, tinnitus, nasal congestion or post nasal drip Card: Denies: chest pain, palpitations, irregular heart rhythm, edema, swelling of feet/ankles, lightheadedness, syncope, pre-syncope, dyspnea on exertion, orthopnea, leg pain with exertion or acrocyanosis Resp: Reports: productive cough; Denies: dyspnea, non-productive cough, wheezing, stridor, pain on inspiration, change in phlegm color, hemoptysis or chest congestion GI: Reports: diarrhea; Denies: abdominal pain, nausea, vomiting, hematemesis, coffee ground emesis, dysphagia, heartburn, constipation, bloating, GI cramping, change in bowel habits, pain on defecation, hematochezia or melena : Denies: flank pain, difficulty urinating, dysuria, urinary frequency, urinary urgency, urinary hesitancy, urinary dribbling, difficulty starting urination, change in urine stream, nocturia or hematuria Musc: Denies: neck pain, back pain, extremity pain, joint pain, joint swelling, joint redness, joint stiffness or limited range of motion Neuro: Reports: headache(s); Denies: numbness in extremities, weakness in extremities, sensory changes, lack of coordination, difficulty walking, frequent falls, dizziness, vertigo, confusion, Slurred speech present, difficulty communicating thoughts or seizure- like activity Psych: Denies: anxiety, depression, mood swings, panic attacks, hopelessness or irritability Endo: Denies: polyuria, polydipsia, tired all the time, cold intolerance, excessive sweating, flushing or heat intolerance Juan Carlos/Lymph: Denies: easy bruising or easy bleeding All/Imm: Denies: tongue swelling, facial swelling or acute wheezing Medications/Allergies Home Medications Medication Instructions Recorded Confirmed Last Taken Type allopurinol 100 mg tablet 100 mg PO DAILY tab 03/15/19 12/09/19 12/09/19 History aspirin 81 mg tablet,delayed 81 mg PO DAILY tab 01/05/3012/09/19 12/09/19 History release lisinopril 20 mg tablet 20 mg PO DAILY tab 03/15/19 12/09/19 Unknown History metformin 500 mg tablet 1,000 mg PO BID tab 03/15/19 12/09/19 12/09/19 History metoprolol tartrate 50 mg tablet 50 mg PO BID 03/15/19 12/09/19 Unknown History atorvastatin 20 mg tablet 20 mg PO DAILY #90 tab 10/17/19 12/09/19 12/08/19 Rx clopidogrel 75 mg PO DAILY #30 tab 11/08/19 12/09/19 12/08/19 Rx pantoprazole [Protonix] 40 mg PO DAILY #30 tab 11/08/19 12/09/19 Unknown Rx Allergies Allergy/AdvReac Type Severity Reaction Status Date / Time No Known Allergies Allergy Verified 12/09/19 17:32 PFSH Acute PFSH: Medical History Benign essential HTN BPH (benign prostatic hyperplasia) Carpal tunnel syndrome CHF (congestive heart failure) 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, glomerular filtration rate (GFR) equal to or greater than 90 mL/min/1.73 square meter and albuminuria creatinine ratio between 30-299 mg/g Claudication in peripheral vascular disease Diabetes 1.5, 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 Peripheral arterial disease with history of revascularization Prostate cancer Surgical History Previous back surgery S/P inguinal hernia repair Family History Father COPD (chronic obstructive pulmonary disease) Social History Smoking and tobacco status: former smoker Alcohol intake: never Household members: spouse Marital status: service: Yes branch: [employer] Current occupational status: retired Current gender identity: Male Melanie/Caodaism: [employer] Vitals/I&O/Wt Last Vital Signs Temp 97.6 F 12/10/19 08:00 Pulse 71 12/10/19 10:49 Resp 17 12/10/19 10:49 BP 121/73 12/10/19 10:00 Pulse Ox 93 12/10/19 10:49 12/09/19 12/10/19 12/10/19 22:59 06:59 14:59 Intake Total 360 / 360 Output Total 100 / 100 Balance -100 / -100 360 / 360 Weight last 48 hrs Weight 81.692 kg Weight 79.379 kg Physical Exam Narrative: EXAM NARRATIVE: General: No acute distress, AO x3, anxious on 3 L saturating 94% heart rate 60, blood pressure of 100/60 mmHg. HEENT: PERRLA, pupils bilaterally equal and reactive Chest: Bilateral bronchial breath sounds, left more than right, anterior more than posterior, good air entry bilaterally occasional rhonchi. CVS: S1-S2 regular, no murmurs, no tachycardia, no gallops, no rubs Abdomen: Soft, nontender, no organomegaly, bowel sounds present Neuro: No focal deficits, no facial deformity, AO x3, power 5/5 in all limbs Data : 12/10/19 05:18 12/10/19 05:18 Micro: Microbiology 12/09/19 20:54 Blood Culture - Preliminary Blood SPECIMEN COLLECTED 12/09/19 17:07 Blood Culture - Preliminary Blood SPECIMEN COLLECTED A&P Assessment and plan (1) Hypoxia: Status: Acute (2) COVID-19: Status: Acute (3) Claudication in peripheral vascular disease: Status: Acute (4) Peripheral arterial disease with history of revascularization: Status: Acute (5) Diabetes 1.5, managed as type 2: Status: Acute (6) Chronic kidney disease (CKD) stage G1/A2, glomerular filtration rate (GFR) equal to or greater than 90 mL/min/1.73 square meter and albuminuria creatinine ratio between 30-299 mg/g: Status: Acute (7) Benign essential HTN: Status: Acute (8) CHF (congestive heart failure): Status: Acute Qualifiers: Heart failure chronicity: chronic Heart failure type: diastolic Qualified Code(s): I50.32 - Chronic diastolic (congestive) heart failure (9) Transaminitis: Status: Acute (10) Lactic acidosis: Resolved. Status: Acute Additional A&P Information Acute hypoxia because of COVID-19 pneumonia: At least moderate disease as patient is requiring at least 2 to 4 L of oxygen supplementation to keep saturation over 90%. Continue to monitor inflammatory markers daily. Monitor ferritin level, fibrinogen level, d-dimer level, CRP, LDH daily. CTA chest abdomen pelvis done on admission negative for any PE. Remdesevir for 5-day course, dexamethasone 6 mg IV stat. Would need at least 5-day course. Start patient on vitamin C, zinc, Tessalon Perles. Advair, Spiriva. Oxygen supplementation keeping saturation over 90%. Pro-Juanito negative upon admission, patient has low probability of having bacterial pneumonia at present. Will check MRSA swab. For now start patient on levofloxacin for 5-day course. Patient d-dimer mildly elevated. CTA negative for PE. Patient recently had an angioplasty so we will have to continue on dual antiplatelet therapy. For now continue on Lovenox at prophylactic dose. If patient's breathing status worsen or d-dimer continue to elevate even after antibiotic treatment will start on therapeutic dose. Most likely if patient goes on full dose anticoagulation will need for 14 days. Lactic acidosis: Resolved. Most likely because of severe sepsis on admission along with metformin use as an outpatient. Transaminitis: Most likely because of covered pneumonia. For now continue to monitor. If worsens we will hold off on statins. For now continue on statins. Type 2 diabetes mellitus: HbA1c done on September 2019 was 6.7. Insulin sliding scale at moderate dose. Carb consistent diet. Peripheral arterial disease: Post angioplasty recently. Patient is been followed up with a vascular surgeon at [facility] for further procedure. Continue on aspirin, Plavix, statin. Continue to monitor patient pulses regularly. CKD: Baseline creatinine 1.2-1.6 in recent times. Creatinine baseline for now. Medical reconciliation done for nephrotoxic drugs. Continue to monitor BMP daily. Congestive heart failure: Diastolic. Does not see any echo in the system. Patient seems euvolemic right now. Check proBNP. Given extensive history of peripheral arterial disease and covered pneumonia right now we will repeat an echocardiogram to evaluate for ejection fraction. Attestations Medical Necessity Statement*: More than 2 midnights for COVID-19 pneumonia, hypoxia Time Spent in Patient Care: Greater than 35 minutes (>than 50% of time spent in counselling and/or direct pt care on unit) . Coding Level of Care Code Acute Tool Smith for [facility] Diagnoses Hypoxia R09.02 COVID-19 Claudication in peripheral vascular disease I73.9 Peripheral arterial disease with history of revascularization I73.9; Z98.890 Diabetes 1.5, managed as type 2 E13.9 Chronic kidney disease (CKD) stage G1/A2, glomerular filtration rate (GFR) equal to or greater than 90 mL/min/1.73 square meter and albuminuria creatinine ratio between 30-299 mg/g N18.1 Benign essential HTN I10 CHF (congestive heart failure) I50.32 Heart failure chronicity: chronic Heart failure type: diastolic Transaminitis R74.0 Lactic acidosis E87.2
[2019-12-10 11:39] LABS: Glucose Point of Care 276 mg/dL (70-110)
[2019-12-10 12:50] LABS: Iron 25 ug/dL (59-158); Percent Saturation 21.7 % (20-50); Total Iron Binding Capacity 115 mcg/dl; Unsaturated Iron Binding 90 ug/dL (112-347)
[2019-12-10 12:57] LABS: Thyroid Stimulating Hormone 0.73 uIU/mL (0.27-4.20)
[2019-12-10 13:32] LABS: Potassium, Radom Urine 41 mmol/L; Urine Random Sodium 54 mmol/L
[2019-12-10 13:35] LABS: Urine Appearance Clear (CLEAR); Urine Color Yellow (Yellow); pH Urine 5 (5-7)
[2019-12-10 13:36] LABS: Bilirubin Urine Neg (Negative); Blood Urine Neg (Negative); Glucose Urine UA 2+ (Normal); Ketones Urine 1+ (Negative); Leukocyte Esterase Urine Negative (Negative); Nitrate Urine Negative (Negative); Protein Urine Neg (Negative); Urobilinogen Urine Norm (Negative)
[2019-12-10 13:38] LABS: Urine Random Chloride 19 mmol/L
[2019-12-10 13:57] LABS: Add Urine Culture? No; Bacteria Urine 2+ /hpf; Mucus Urine TRACE /hpf; Squamous Epithelial Cell Urine 0-4 /hpf (0-5)
--- NOTE | 2019-12-10 14:53 | USCV_ITS ---
Ji Ibarra Age: 73 Gender: M : 1945 Exam Date: 12/10/2019 15:24 Ordering Phys: Liborio Esposito MD Technologist: Gordy Fuentes Exam Location: [facility] [place] Indication: DVT HISTORY: DVT. PROCEDURES: Venous duplex imaging was performed in bilateral lower extremities. The following venous structures were evaluated: common femoral vein, profunda vein, proximal portion of the greater saphenous vein, superficial femoral vein, and the popliteal vein. In addition, the posterior tibial and peroneal trunk were evaluated. Serial compression, augmentation maneuvers, and spectral Doppler flow evaluation were performed. FINDINGS: Normal 2-D Doppler and augmentation and compressibility throughout the lower extremity venous structures. Additional imaging through the proximal calf veins also reveals no thrombus. Limited evaluation of the greater saphenous vein is patent with no thrombus.. CONCLUSIONS No DVT bilateral lower extremities. Dr. Claudia Hicks DO (Electronically Signed) Final Date: 10 December 2019 15:46 S
--- NOTE | 2019-12-10 14:53 | USCV_ITS ---
Ji Ibarra Age: 73 Gender: M : 1945 Exam Date: 12/10/2019 15:11 Ordering Phys: Liborio Esposito MD Technologist: Gordy Fuentes Exam Location: [facility] – [place] Indication: ELEV BNP BP: 116 / 69 HR: 73 Rhythm: Sinus Technical Quality: Adequate MEASUREMENTS (Male / Female) Normal Values 2D ECHO LV Diastolic Diameter PLAX 3.5 cm 4.2 - 5.9 / 3.9 - 5.3 cm LV Systolic Diameter PLAX 2.5 cm IVS Diastolic Thickness 0.9 cm 0.6 - 1.0 / 0.6 - 0.9 cm IVS Systolic Thickness 1.2 cm LVPW Diastolic Thickness 1.1 cm 0.6 - 1.0 / 0.6 - 0.9 cm LVPW Systolic Thickness 1.2 cm LVOT Diameter 2.0 cm LV Ejection Fraction 2D Teich 59.1 % LV Ejection Fraction MOD 2C 55.0 % LV Ejection Fraction 2C AL 53.6 % LA Diameter 3.6 cm LA Width 3.6 cm LA Height 4.8 cm RA Width 3.7 cm RA Height 4.3 cm M-MODE LV Diastolic Diameter MM 5.4 cm 4.2 - 5.9 / 3.9 - 5.3 cm LV Systolic Diameter MM 3.2 cm LV Ejection Fraction MM Teich 72.2 % IVS Diastolic Thickness MM 0.9 cm 0.6 - 1.0 / 0.6 - 0.9 cm IVS Systolic Thickness MM 1.7 cm LVPW Diastolic Thickness MM 1.1 cm 0.6 - 1.0 / 0.6 - 0.9 cm LVPW Systolic Thickness MM 2.0 cm RV Diastolic Diameter MM 1.7 cm Aortic Annulus Diameter 3.7 cm LA Ao Ratio MM 1.2 MV E Point Septal Separation 1.0 cm DOPPLER AV Peak Velocity 126.0 cm/s LVOT Peak Velocity 68.0 cm/s AV Area Cont Eq vti 1.9 cm squared AV Area Cont Eq pk 1.8 cm squared MV Area PHT 3.3 cm squared Mitral E to A Ratio 0.8 MV E' Velocity 54.0 cm/s TR Peak Velocity 161.3 cm/s TR Peak Gradient 10.4 mmHg TV Peak E Velocity 79.0 cm/s Right Atrial Pressure 3.0 mmHg Pulmonary Artery Systolic Pressu 13.4 mmHg PV Peak Velocity 101.0 cm/s FINDINGS Left Ventricle Normal left ventricular cavity size. Normal left ventricular systolic function. No regional wall motion abnormalities. Left ventricular ejection fraction is estimated at 60 %. Grade I/IV diastolic dysfunction (abnormal relaxation filling pattern), normal to mildly elevated filling pressures. Right Ventricle The right ventricle is normal in size and function. Right Atrium The right atrium is normal in size. Left Atrium The left atrium is normal in size. Mitral Valve Structurally normal mitral valve without significant stenosis or prolapse. There is no mitral regurgitation. Aortic Valve Moderate aortic valve calcification. No aortic valve stenosis. No aortic valve regurgitation. Tricuspid Valve Mild tricuspid valve regurgitation. Pulmonic Valve Structurally normal pulmonic valve without significant stenosis. There is no pulmonic regurgitation. Pericardium Normal pericardium without effusion. Aorta Normal ascending aorta dimension. CONCLUSIONS 1-Normal left ventricular cavity size. Normal left ventricular systolic function. No regional wall motion abnormalities. Left ventricular ejection fraction is estimated at 60 %. Grade I/IV diastolic dysfunction (abnormal relaxation filling pattern), normal to mildly elevated filling pressures. 2-Structurally normal mitral valve without significant stenosis or prolapse. There is no mitral regurgitation. 3-Moderate aortic valve calcification. No aortic valve stenosis. No aortic valve regurgitation. 4-Mild tricuspid valve regurgitation. 5-There is no pericardial effusion. 6-There are no prior echocardiogram studies to compare. Khoa Benavides MD (Electronically Signed) Final Date: 10 December 2019 19:59 S
[2019-12-10] MEDS: benzonatate 100 mg Capsule PO ×2 (15:27→21:03)
[2019-12-10 16:56] LABS: Glucose Point of Care 141 mg/dL (70-110)
[2019-12-10] MEDS: ascorbic acid 500 mg Tablet PO (17:13)
[2019-12-10 20:17] LABS: Glucose Point of Care 143 mg/dL (70-110)
[2019-12-11] VITALS (28 sets, daily range): BP systolic 93–137; BP diastolic 56–86; PULSE 63–152; RESP 16–37; TEMP 36.2–37; O2SAT 90–97; BMI 25.9
[2019-12-11] MEDS: enoxaparin 40 mg/0.4 mL Syringe SUBCUT (01:26)
[2019-12-11] MEDS: dexamethasone 4 mg/mL INJ 6 MG IVP (01:27)
[2019-12-11 06:12] LABS: Basophils % 0.2 %; Hematocrit 30.1 % (42.0-52.0); Hemoglobin 10.1 g/dL (11.7-16.6); Lymphocytes # 0.3 10^3/uL (0.8-4.8); Lymphocytes % 6.7 %; Mean Corpuscular HGB Conc 33.6 g/dL (30.0-36.0); Mean Corpuscular Hemoglobin 33.3 pg (28.0-34.0); Mean Corpuscular Volume 99.3 fL (80-94); Mean Platelet Volume 10.7 fL (7.4-10.4); Monocytes # 0.4 10^3/uL (0.2-0.9); Monocytes % 9.1 %; Neutrophils # 3.97 10^3/uL (1.8-7.7); Neutrophils % 82.5 %; Nucleated Red Blood Cells % 0 %; Platelet Count 146 10^3/cmm (130-400); Red Blood Count 3.03 10^6/uL (4.1-5.3); Red Cell Distribution Width 13.6 % (12.1-15.1); White Blood Count 4.8 10^3/uL (4.0-10.0)
[2019-12-11 06:37] LABS: Fibrinogen 326 mg/dL (174-498)
[2019-12-11 06:40] LABS: D Dimer 0.99 ug/mIFEU (0-0.59)
[2019-12-11 06:45] LABS: Alanine Aminotransferase 46 U/L (0-41); Albumin Level 3.2 g/dL (3.5-5.2); Alkaline Phosphatase 53 IU/L (40-130); Anion Gap 16.4 (5-19); Aspartate Amino Transferase 59 U/L (0-40); Blood Urea Nitrogen 33 mg/dL (8-23); Calcium 8.2 mg/dL (8.5-10.5); Carbon Dioxide 20 mmol/L (22-29); Chloride 102 mmol/L (98-107); Globulin 2.8 g/dL (1.3-4.6); Glucose 181 mg/dL (65-115); Osmolality Calculated 290 mOsm/kg (285-295); Potassium 4.4 mmol/L (3.5-5.1); Sodium 134 mmol/L (136-145); Total Bilirubin 0.6 mg/dL (0.15-1.2)
[2019-12-11 06:46] LABS: Lactate (Lactic Acid level) 1.4 mmol/L (0.5-2.2)
[2019-12-11 06:56] LABS: C Reactive Protein 18.3 mg/L (0.0-4.9); Chol HDL Ratio 2.07 mg/dL (1.0-5.00); Cholesterol 56 mg/dL (0-200); Creatine Phosphokinase 168 U/L (39-308); HDL Cholesterol 27 mg/dL (60-100); LDL Cholesterol Calculated 15 mg/dL (50-129); Lactate Dehydrogenase 282 U/L (135-225); NT Pro B Type Natriuretic Pept 709 pg/mL (0-125); Triglycerides 68 mg/dL (0-150); VLDL Cholestrol Calculation 14 mg/dL (0-30)
[2019-12-11 07:10] LABS: Ferritin 2251 ng/mL (30-400)
[2019-12-11 07:37] LABS: Glucose Point of Care 209 mg/dL (70-110)
[2019-12-11] MEDS: ascorbic acid 500 mg Tablet PO ×2 (08:24→17:05)
[2019-12-11] MEDS: atorvastatin 40 mg Tablet 20 MG PO (08:24)
[2019-12-11] MEDS: lisinopril 10 mg Tablet PO (08:24)
[2019-12-11] MEDS: clopidogrel 75 mg Tablet PO (08:24)
[2019-12-11] MEDS: zinc gluconate 50 mg Tablet PO (08:24)
[2019-12-11] MEDS: pantoprazole DR 40 mg Tablet PO (08:24)
[2019-12-11] MEDS: aspirin 81 mg EC Tablet PO (08:24)
[2019-12-11] MEDS: metoprolol tartrate 50 mg Tablet 25 MG PO ×2 (08:24→17:05)
[2019-12-11] MEDS: allopurinol 100 mg Tablet PO (08:25)
[2019-12-11] MEDS: albuterol 8 gm MDI 2 PUFF INHALATION ×2 (08:39→20:58)
[2019-12-11] MEDS: benzonatate 100 mg Capsule PO ×3 (09:26→21:06)
--- NOTE | 2019-12-11 09:48 | PC.RESP ---
PATIENT DOES NOT HAVE A QUALIFYING HX OF LUNG DISEASE AND DOES NOT QUALIFY FOR PULMONARY REHAB AT THIS TIME.
[2019-12-11 11:41] LABS: Glucose Point of Care 176 mg/dL (70-110)
[2019-12-11 15:47] LABS: Glucose Point of Care 75 mg/dL (70-110)
--- NOTE | 2019-12-11 17:02 | P.PN_ITS ---
Subjective Subjective: Interval history: No events overnight. Patient doing better. He is saturating 92% on 2 L nasal cannula. States his energy levels are better. Appetite is better. Denies any nausea, vomiting, headache, dizziness. Discussed in detail regarding use of incentive spirometry, flutter valve. Also discussed in detail for proning and semi-proning. He states he would sleep on one side at night and even at rest. Vitals/I&O/Wt Last Vital Signs Temp 97.9 F 12/11/19 16:00 Pulse 64 12/11/19 16:00 Resp 24 H 12/11/19 16:00 BP 112/76 12/11/19 16:00 Pulse Ox 92 12/11/19 16:00 12/11/19 12/11/19 12/11/19 06:59 14:59 22:59 Intake Total 0 / 1182 460 / 460 Output Total 250 / 1020 350 / 350 Balance -250 / 162 110 / 110 Weight last 48 hrs Weight 79.889 kg Weight 81.692 kg Physical Exam Narrative: EXAM NARRATIVE: General: No acute distress, AO x3, on 2 L saturating 94% heart rate 60, blood pressure of 100/60 mmHg. HEENT: PERRLA, pupils bilaterally equal and reactive Chest: Bilateral bronchial breath sounds, left more than right, anterior more than posterior, good air entry bilaterally occasional rhonchi. CVS: S1-S2 regular, no murmurs, no tachycardia, no gallops, no rubs Abdomen: Soft, nontender, no organomegaly, bowel sounds present Neuro: No focal deficits, no facial deformity, AO x3, power 5/5 in all limbs Data : 12/11/19 05:56 12/11/19 05:56 Micro: Microbiology 12/09/19 20:54 Blood Culture - Preliminary Blood NEGATIVE TO DATE 12/09/19 17:07 Blood Culture - Preliminary Blood NEGATIVE TO DATE 12/10/19 12:10 Legionella Urinary Antigen - Final Urine,Clean Catch A&P Assessment and plan (1) Hypoxia: Status: Acute (2) COVID-19: Status: Acute (3) Claudication in peripheral vascular disease: Status: Acute (4) Peripheral arterial disease with history of revascularization: Status: Acute (5) Diabetes 1.5, managed as type 2: Status: Acute (6) Chronic kidney disease (CKD) stage G1/A2, glomerular filtration rate (GFR) equal to or greater than 90 mL/min/1.73 square meter and albuminuria creatinine ratio between 30-299 mg/g: Status: Acute (7) Benign essential HTN: Status: Acute (8) CHF (congestive heart failure): Status: Acute Qualifiers: Heart failure type: diastolic Heart failure chronicity: chronic Qualified Code(s): I50.32 - Chronic diastolic (congestive) heart failure (9) Transaminitis: Status: Acute (10) Lactic acidosis: Resolved. Status: Acute Additional A&P Information Acute hypoxia because of COVID-19 pneumonia: At least moderate disease as patient is requiring at least 2 to 4 L of oxygen supplementation to keep saturation over 90%. Continue to monitor inflammatory markers daily. Monitor ferritin level, fibrinogen level, d-dimer level, CRP, LDH daily. For now stable. CTA chest abdomen pelvis done on admission negative for any PE. Remdesevir for 5-day course, dexamethasone 6 mg IV stat. Day 3/5 Continue with vitamin C, zinc, Tessalon Perles. Advair, Spiriva. Incentive spirometry, flutter valve. Discussed in detail regarding proning and semi-proninig. He has agreed for semi-proning while resting or sleeping. Oxygen supplementation keeping saturation over 90%. Pro-Juanito negative upon admission, patient has low probability of having bacterial pneumonia at present. Will check MRSA swab. For now start patient on levofloxacin for 5-day course. Day 2 today. Patient d-dimer mildly elevated. CTA negative for PE. Patient recently had an angioplasty so we will have to continue on dual antiplatelet therapy. For now continue on Lovenox at prophylactic dose. If patient's breathing status worsen or d-dimer continue to elevate even after antibiotic treatment will start on therapeutic dose. Most likely if patient goes on full dose anticoagulation will need for 14 days. Lactic acidosis: Resolved. Most likely because of severe sepsis on admission along with metformin use as an outpatient. Transaminitis: Most likely because of covered pneumonia. For now continue to monitor. Lipid panel results appreciated. For now we will stop the statins. Most likely patient requires a lower dose of statin than what he is on at present. Type 2 diabetes mellitus: HbA1c done on September 2019 was 6.7. Insulin sliding scale at moderate dose. Carb consistent diet. Hypertension: Goal blood pressure less than 140/90 mmHg. Continue home dose of lisinopril and metoprolol. Continue to monitor blood pressures regularly. Peripheral arterial disease: Post angioplasty recently. Patient is been followed up with a vascular surgeon at [facility] for further procedure. Continue on aspirin, Plavix, metoprolol at home dose. Continue to monitor patient pulses regularly. CKD: Baseline creatinine 1.2-1.6 in recent times. Creatinine baseline for now. Medical reconciliation done for nephrotoxic drugs. Continue to monitor BMP daily. Congestive heart failure: Diastolic. Does not see any echo in the system. Patient seems euvolemic right now. Check proBNP. Given extensive history of peripheral arterial disease and covered pneumonia right now we will repeat an echocardiogram to evaluate for ejection fraction. Full code. Lovenox for DVT prophylaxis Cardiac carb consistent diet. Protonix for PUD prophylaxis. Patient's care discussed in detail with patient's on phone today. All the questions were answered. She is concerned regarding MRI back which needs to be scheduled for him as an outpatient for work-up of claudication. I suggested to wait off on MRI back for next 2 weeks after discharge for proper self-isolation protocol. Attestations Medical Necessity Statement*: Hypoxia, COVID-19 pneumonia Time Spent in Patient Care: Greater than 35 minutes (>than 50% of time spent in counselling and/or direct pt care on unit) . 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
[2019-12-11] MEDS: ferrous gluconate 324 mg Tablet PO (17:05)
[2019-12-11 20:14] LABS: Glucose Point of Care 143 mg/dL (70-110)
[2019-12-12] VITALS (29 sets, daily range): BP systolic 93–147; BP diastolic 62–94; PULSE 60–78; RESP 12–36; TEMP 34.7–36.6; O2SAT 90–100
[2019-12-12] MEDS: enoxaparin 40 mg/0.4 mL Syringe SUBCUT (00:15)
[2019-12-12] MEDS: dexamethasone 4 mg/mL INJ 6 MG IVP (00:15)
[2019-12-12 05:46] LABS: Basophils % 0.2 %; Hemoglobin 10.2 g/dL (11.7-16.6); Lymphocytes # 0.3 10^3/uL (0.8-4.8); Lymphocytes % 5.2 %; Mean Corpuscular Hemoglobin 33.7 pg (28.0-34.0); Mean Platelet Volume 11.9 fL (7.4-10.4); Monocytes # 0.5 10^3/uL (0.2-0.9); Monocytes % 8.3 %; Neutrophils # 5.01 10^3/uL (1.8-7.7); Neutrophils % 84.8 %; Nucleated Red Blood Cells % 0 %; Platelet Count 140 10^3/cmm (130-400); Red Blood Count 3.03 10^6/uL (4.1-5.3); Red Cell Distribution Width 13.6 % (12.1-15.1); White Blood Count 5.9 10^3/uL (4.0-10.0)
--- NOTE | 2019-12-12 05:59 | PC.NURSE ---
Shift Events: Patient remains on 4LO2. Did have 1 episode of confusion after having oxygen off for several minutes. Rested quietly in bed for most of the night. No c/o pain. VSS.
--- NOTE | 2019-12-12 06:00 | XR_ITS ---
WS: [id number] Portable AP upright chest, 12/12/2019 Clinical Data: covid Comparison: Portable chest, 12/09/2019. Findings: No nodules, masses or effusions are seen. The heart is normal. The pulmonary vascularity is not increased. No pneumonia or pneumothorax is seen. Minimal patchy bilateral lower lobe atelectatic changes are seen. There are monitor leads on the chest wall. There are 3 orthopedic anchors in the r ight humeral head. XR/XR chest 1V portable [id number] Impression: Minimal bilateral lower lobe atelectasis.
[2019-12-12 06:01] LABS: Fibrinogen 359 mg/dL (174-498)
[2019-12-12 06:07] LABS: Alanine Aminotransferase 45 U/L (0-41); Albumin Level 3.2 g/dL (3.5-5.2); Alkaline Phosphatase 54 IU/L (40-130); Blood Urea Nitrogen 33 mg/dL (8-23); Calcium 8.1 mg/dL (8.5-10.5); Carbon Dioxide 19 mmol/L (22-29); Chloride 104 mmol/L (98-107); Globulin 2.7 g/dL (1.3-4.6); Glucose 149 mg/dL (65-115); Osmolality Calculated 288 mOsm/kg (285-295); Sodium 134 mmol/L (136-145); Total Bilirubin 0.7 mg/dL (0.15-1.2); Total Protein 5.9 g/dL (6.6-8.7)
[2019-12-12 06:15] LABS: Anion Gap 15.6 (5-19); Potassium 4.6 mmol/L (3.5-5.1)
[2019-12-12 06:16] LABS: Aspartate Amino Transferase 59 U/L (0-40)
[2019-12-12 06:18] LABS: C Reactive Protein 9.9 mg/L (0.0-4.9); Creatine Phosphokinase 123 U/L (39-308); NT Pro B Type Natriuretic Pept 659 pg/mL (0-125)
[2019-12-12 06:24] LABS: Lactate Dehydrogenase 381 U/L (135-225)
[2019-12-12 06:30] LABS: Glucose Point of Care 196 mg/dL (70-110)
[2019-12-12 06:30] LABS: Ferritin 2275 ng/mL (30-400)
[2019-12-12] MEDS: albuterol 8 gm MDI 2 PUFF INHALATION ×2 (08:50→20:03)
[2019-12-12] MEDS: metoprolol tartrate 50 mg Tablet 25 MG PO ×2 (08:58→17:08)
[2019-12-12] MEDS: zinc gluconate 50 mg Tablet PO (08:58)
[2019-12-12] MEDS: ferrous gluconate 324 mg Tablet PO ×2 (08:58→17:08)
[2019-12-12] MEDS: allopurinol 100 mg Tablet PO (08:58)
[2019-12-12] MEDS: ascorbic acid 500 mg Tablet PO ×2 (08:58→17:08)
[2019-12-12] MEDS: clopidogrel 75 mg Tablet PO (08:59)
[2019-12-12] MEDS: aspirin 81 mg EC Tablet PO (08:59)
[2019-12-12] MEDS: pantoprazole DR 40 mg Tablet PO (08:59)
[2019-12-12] MEDS: benzonatate 100 mg Capsule PO ×3 (08:59→22:00)
[2019-12-12] MEDS: lisinopril 10 mg Tablet PO (08:59)
--- NOTE | 2019-12-12 11:04 | P.PN_ITS ---
Subjective Subjective: Interval history: No acute events overnight. Patient is feeling little better. Denies of any nausea, vomiting, headache. He is doing incentive spirometry and flutter valve. On my examination he is sitting comfortably in bed. States he cannot do prone position or semiprone position. He saturating 98% on 4 L nasal cannula. Vitals/I&O/Wt Last Vital Signs Temp 97.9 F 12/12/19 08:00 Pulse 71 12/12/19 09:00 Resp 36 H 12/12/19 10:00 BP 112/78 12/12/19 10:00 Pulse Ox 95 12/12/19 10:00 12/11/19 12/12/19 12/12/19 22:59 06:59 14:59 Intake Total 540 / 1000 120 / 1120 300 / 300 Output Total 450 / 800 180 / 980 100 / 100 Balance 90 / 200 -60 / 140 200 / 200 Weight last 48 hrs Weight 76.702 kg Weight 79.889 kg Physical Exam Narrative: EXAM NARRATIVE: General: No acute distress, AO x3, HEENT: PERRLA, pupils bilaterally equal and reactive Chest: Bilateral bronchial breath sounds, left more than right, anterior more than posterior, good air entry bilaterally occasional rhonchi. CVS: S1-S2 regular, no murmurs, no tachycardia, no gallops, no rubs Abdomen: Soft, nontender, no organomegaly, bowel sounds present Neuro: No focal deficits, no facial deformity, AO x3, power 5/5 in all limbs Data : 12/12/19 04:15 12/12/19 04:15 Other Labs: D-dimer 0.8 from 0.99 Fibrinogen 359 from 326 Ferritin 2275 from 2251 LDH 381 from 22 CRP 9.9 from 18.3 proBNP 659 from 709 Micro: Microbiology 12/11/19 12:35 MRSA Culture - Final Nose A&P Assessment and plan (1) Hypoxia: Status: Acute (2) COVID-19: Status: Acute (3) Claudication in peripheral vascular disease: Status: Acute (4) Peripheral arterial disease with history of revascularization: Status: Acute (5) Diabetes 1.5, managed as type 2: Status: Acute (6) Chronic kidney disease (CKD) stage G1/A2, glomerular filtration rate (GFR) equal to or greater than 90 mL/min/1.73 square meter and albuminuria creatinine ratio between 30-299 mg/g: Status: Acute (7) Benign essential HTN: Status: Acute (8) CHF (congestive heart failure): Status: Acute Qualifiers: Heart failure chronicity: chronic Heart failure type: diastolic Qualified Code(s): I50.32 - Chronic diastolic (congestive) heart failure (9) Transaminitis: Status: Acute (10) Lactic acidosis: Resolved. Status: Acute Additional A&P Information Acute hypoxia because of COVID-19 pneumonia: At least moderate disease as patient is requiring at least 2 to 4 L of oxygen supplementation to keep saturation over 90%. Stable for now. Continue to monitor inflammatory markers daily. Monitor ferritin level, fibrinogen level, d-dimer level, CRP, LDH daily. For now stable. CTA chest abdomen pelvis done on admission negative for any PE. Remdesevir for 5-day course, dexamethasone 6 mg IV stat. Day 4/5 Continue with vitamin C, zinc, Tessalon Perles. Advair, Spiriva. Incentive spirometry, flutter valve. Discussed in detail regarding proning and semi-proninig. He states for now it is getting difficult for him to be in prone or semiprone position. He states he will try. Oxygen supplementation keeping saturation over 90%. Pro-Juanito, MRSA swab, Legionella, bacterial antigen negative. For now start patient on levofloxacin for 5-day course. Day 3 today. Patient d-dimer mildly elevated. CTA negative for PE. Patient recently had an angioplasty so we will have to continue on dual antiplatelet therapy. For now continue on Lovenox at prophylactic dose. If patient's breathing status worsen or d-dimer continue to elevate even after antibiotic treatment will start on therapeutic dose. Most likely if patient goes on full dose anticoagulation will need for 14 days. Lactic acidosis: Resolved. Most likely because of severe sepsis on admission al clary with metformin use as an outpatient. Transaminitis: Most likely because of COVID-19 pneumonia. Stable for now. For now continue to monitor. Lipid panel results appreciated. For now we will stop the statins. Most likely patient requires a lower dose of statin than what he is on at present. Type 2 diabetes mellitus: HbA1c done on September 2019 was 6.7. Insulin sliding scale at moderate dose. Carb consistent diet. Hypertension: Goal blood pressure less than 140/90 mmHg. Blood pressure little soft today. We will hold off on lisinopril. Continue home dose of metoprolol. Continue to monitor blood pressures regularly. Peripheral arterial disease: Post angioplasty recently. Patient is been followed up with a vascular surgeon at [facility] for further procedure. Continue on aspirin, Plavix, metoprolol at home dose. Continue to monitor patient pulses regularly. CKD: Baseline creatinine 1.2-1.6 in recent times. Creatinine baseline for now. Medical reconciliation done for nephrotoxic drugs. Continue to monitor BMP daily. Congestive heart failure: Diastolic. Echocardiogram shows EF of 60% with grade 1 diastolic dysfunction. Euvolemic at present. Continue to monitor. Full code. Lovenox for DVT prophylaxis Cardiac carb consistent diet. Protonix for PUD prophylaxis. Patient's care discussed in detail with patient's on phone today. All the questions were answered. She is concerned regarding MRI back which needs to be scheduled for him as an outpatient for work-up of claudication. I suggested to wait off on MRI back for next 2 weeks after discharge for proper self-isolation protocol. Discharge planning: We will finish 5-day antiviral treatment and offer that monitor the oxygen supplementation and inflammatory markers for 24 to 48 hours. If it remains stable we will plan to discharge home. Attestations Medical Necessity Statement*: Hypoxia from COVID-19 pneumonia Time Spent in Patient Care: Greater than 35 minutes (>than 50% of time spent in counselling and/or direct pt care on unit) . Coding Level of Care Code Acute Med Specialist for [facility]ha Diagnoses Hypoxia R09.02 COVID-19 Claudication in peripheral vascular disease I73.9 Peripheral arterial disease with history of revascularization I73.9; Z98.890 Diabetes 1.5, managed as type 2 E13.9 Chronic kidney disease (CKD) stage G1/A2, glomerular filtration rate (GFR) equal to or greater than 90 mL/min/1.73 square meter and albuminuria creatinine ratio between 30-299 mg/g N18.1 Benign essential HTN I10 CHF (congestive heart failure) I50.32 Heart failure chronicity: chronic Heart failure type: diastolic Transaminitis R74.0 Lactic acidosis E87.2
[2019-12-12 11:14] LABS: Glucose Point of Care 217 mg/dL (70-110)
[2019-12-12 16:04] LABS: Glucose Point of Care 60 mg/dL (70-110)
[2019-12-12 16:42] LABS: Glucose Point of Care 74 mg/dL (70-110)
[2019-12-12 20:28] LABS: Glucose Point of Care 105 mg/dL (70-110)
[2019-12-12] MEDS: nystatin 100,000 unit/mL UDC 5 mL 200000 UNIT PO (22:00)
[2019-12-13] VITALS (47 sets, daily range): BP systolic 100–143; BP diastolic 55–114; PULSE 61–90; RESP 13–32; TEMP 36.6–36.9; O2SAT 90–100
[2019-12-13] MEDS: enoxaparin 40 mg/0.4 mL Syringe SUBCUT (01:21)
[2019-12-13] MEDS: dexamethasone 4 mg/mL INJ 6 MG IVP ×2 (01:21→12:19)
[2019-12-13 06:34] LABS: Basophils % 0.2 %; Hematocrit 31.7 % (42.0-52.0); Hemoglobin 10.6 g/dL (11.7-16.6); Lymphocytes # 0.3 10^3/uL (0.8-4.8); Lymphocytes % 4.9 %; Mean Corpuscular HGB Conc 33.4 g/dL (30.0-36.0); Mean Corpuscular Volume 98.8 fL (80-94); Monocytes # 0.5 10^3/uL (0.2-0.9); Monocytes % 8.3 %; Neutrophils # 5.22 10^3/uL (1.8-7.7); Neutrophils % 84.7 %; Nucleated Red Blood Cells % 0 %; Platelet Count 163 10^3/cmm (130-400); Red Blood Count 3.21 10^6/uL (4.1-5.3); Red Cell Distribution Width 13.5 % (12.1-15.1); White Blood Count 6.2 10^3/uL (4.0-10.0)
[2019-12-13 06:55] LABS: Glucose Point of Care 224 mg/dL (70-110)
[2019-12-13 07:17] LABS: Fibrinogen 328 mg/dL (174-498)
[2019-12-13 07:18] LABS: Alanine Aminotransferase 46 U/L (0-41); Albumin Level 3.6 g/dL (3.5-5.2); Alkaline Phosphatase 72 IU/L (40-130); Anion Gap 14.7 (5-19); Aspartate Amino Transferase 51 U/L (0-40); Blood Urea Nitrogen 31 mg/dL (8-23); Calcium 8.5 mg/dL (8.5-10.5); Carbon Dioxide 22 mmol/L (22-29); Chloride 102 mmol/L (98-107); Globulin 2.5 g/dL (1.3-4.6); Glucose 175 mg/dL (65-115); Osmolality Calculated 289 mOsm/kg (285-295); Potassium 4.7 mmol/L (3.5-5.1); Sodium 134 mmol/L (136-145); Total Bilirubin 0.8 mg/dL (0.15-1.2); Total Protein 6.1 g/dL (6.6-8.7)
[2019-12-13 07:20] LABS: D Dimer 0.67 ug/mIFEU (0-0.59)
[2019-12-13 07:27] LABS: Creatine Phosphokinase 72 U/L (39-308); Lactate Dehydrogenase 284 U/L (135-225); NT Pro B Type Natriuretic Pept 760 pg/mL (0-125)
[2019-12-13 07:42] LABS: Ferritin 2314 ng/mL (30-400)
[2019-12-13] MEDS: albuterol 8 gm MDI 2 PUFF INHALATION ×2 (08:30→19:24)
--- NOTE | 2019-12-13 08:48 | DCPLANNER ---
Pg 2 of IM updated and phoned pt's Spouse; Ayaka ([phone]) and explained to her. No questions but comments that she for sure wants him to be feeling much better than he was when he came in.
[2019-12-13] MEDS: nystatin 100,000 unit/mL UDC 5 mL 200000 UNIT PO ×4 (10:20→21:19)
[2019-12-13] MEDS: zinc gluconate 50 mg Tablet PO (10:21)
[2019-12-13] MEDS: aspirin 81 mg EC Tablet PO (10:21)
[2019-12-13] MEDS: clopidogrel 75 mg Tablet PO (10:21)
[2019-12-13] MEDS: pantoprazole DR 40 mg Tablet PO (10:21)
[2019-12-13] MEDS: ascorbic acid 500 mg Tablet PO ×2 (10:21→17:14)
[2019-12-13] MEDS: benzonatate 100 mg Capsule PO ×3 (10:21→21:19)
[2019-12-13] MEDS: metoprolol tartrate 50 mg Tablet 25 MG PO ×2 (10:22→17:15)
[2019-12-13] MEDS: ferrous gluconate 324 mg Tablet PO ×2 (10:22→17:15)
[2019-12-13] MEDS: allopurinol 100 mg Tablet PO (10:23)
--- NOTE | 2019-12-13 10:31 | P.PN_ITS ---
Subjective Subjective: Interval history: No acute events overnight. Patient continues to does better. He states his energy levels are good. On examination he saturating 93% on 2 L nasal cannula. Today morning he walked in the room with the nursing staff. This is the first time he has walked in 1 week. He was feeling better. More steady on his feet. He has been working with incentive spirometry and flutter valve. Has been using semiprone position to sleep as well. Vitals/I&O/Wt Last Vital Signs Temp 98.2 F 12/13/19 08:00 Pulse 85 12/13/19 08:30 Resp 19 H 12/13/19 08:30 BP 113/82 12/13/19 08:30 Pulse Ox 95 12/13/19 08:30 12/12/19 12/13/19 12/13/19 22:59 06:59 14:59 Intake Total 370 / 910 100 / 100 Output Total 750 / 1125 450 / 1575 Balance -380 / -215 -450 / -665 100 / 100 Weight last 48 hrs Weight 78.88 kg Weight 76.702 kg Physical Exam Narrative: EXAM NARRATIVE: General: No acute distress, AO x3, HEENT: PERRLA, pupils bilaterally equal and reactive Chest: Bilateral bronchial breath sounds, left more than right, anterior more than posterior, good air entry bilaterally occasional rhonchi. CVS: S1-S2 regular, no murmurs, no tachycardia, no gallops, no rubs Abdomen: Soft, nontender, no organomegaly, bowel sounds present Neuro: No focal deficits, no facial deformity, AO x3, power 5/5 in all limbs Data : 12/13/19 05:36 12/13/19 05:36 Micro: Microbiology 12/11/19 12:35 MRSA Culture - Final Nose A&P Assessment and plan (1) Hypoxia: Status: Acute (2) COVID-19: Status: Acute (3) Claudication in peripheral vascular disease: Status: Acute (4) Peripheral arterial disease with history of revascularization: Status: Acute (5) Diabetes 1.5, managed as type 2: Status: Acute (6) Chronic kidney disease (CKD) stage G1/A2, glomerular filtration rate (GFR) equal to or greater than 90 mL/min/1.73 square meter and albuminuria creatinine ratio between 30-299 mg/g: Status: Acute (7) Benign essential HTN: Status: Acute (8) CHF (congestive heart failure): Status: Acute Qualifiers: Heart failure chronicity: chronic Heart failure type: diastolic Qualified Code(s): I50.32 - Chronic diastolic (congestive) heart failure (9) Transaminitis: Status: Acute (10) Lactic acidosis: Resolved. Status: Acute Additional A&P Information Acute hypoxia because of COVID-19 pneumonia: At least moderate disease as patient is requiring at least 2 to 4 L of oxygen supplementation to keep saturation over 90%. Stable for now. Continue to monitor inflammatory markers daily. Monitor ferritin level, fibrinogen level, d-dimer level, CRP, LDH daily. For now stable. CTA chest abdomen pelvis done on admission negative for any PE. Remdesevir for 5-day course. Last dose of anti-viral treatment. Dexamethasone 6 mg IV daily. Will switch to oral prednisone tomorrow. Continue with vitamin C, zinc, Tessalon Perles. Advair, Spiriva. Incentive spirometry, flutter valve. Discussed in detail regarding proning and semi-proninig. He states for now it is getting difficult for him to be in prone or semiprone position. He states he will try. Oxygen supplementation keeping saturation over 90%. Pro-Juanito, MRSA swab, Legionella, bacterial antigen negative. For now start patient on levofloxacin for 5-day course. Day 4 today. Patient d-dimer mildly elevated but trending down. CTA negative for PE. Patient recently had an angioplasty so we will have to continue on dual antiplatelet therapy. For now continue on Lovenox at prophylactic dose. If patient's breathing status worsen or d-dimer continue to elevate even after antibiotic treatment will start on therapeutic dose. Most likely if patient goes on full dose anticoagulation will need for 14 days. Lactic acidosis: Resolved. Most likely because of severe sepsis on admission along with metformin use as an outpatient. Transaminitis: Most likely because of COVID-19 pneumonia. Stable for now. For now continue to monitor. Lipid panel results appreciated. For now we will stop the statins. Most likely patient requires a lower dose of statin than what he is on at present. Type 2 diabetes mellitus: HbA1c done on September 2019 was 6.7. Insulin sliding scale at moderate dose. Carb consistent diet. Hypertension: Goal blood pressure less than 140/90 mmHg. Blood pressure little soft today. We will hold off on lisinopril. Continue home dose of metoprolol. Continue to monitor blood pressures regularly. Peripheral arterial disease: Post angioplasty recently. Patient is been followed up with a vascular surgeon at [facility] for further procedure. Continue on aspirin, Plavix, metoprolol at home dose. Continue to monitor patient pulses regularly. CKD: Baseline creatinine 1.2-1.6 in recent times. Creatinine baseline for now. Medical reconciliation done for nephrotoxic drugs. Continue to monitor BMP daily. Congestive heart failure: Diastolic. Echocardiogram shows EF of 60% with grade 1 diastolic dysfunction. Euvolemic at present. Continue to monitor. Full code. Lovenox for DVT prophylaxis Cardiac carb consistent diet. Protonix for PUD prophylaxis. Patient's care discussed in detail with patient's on phone today. All the questions were answered. Discharge planning: Today will be the last dose of antibiotic treatment. We w ill switch over to oral steroids tomorrow. Will monitor for 24 more hours. If patient continues to do well and then inflammatory markers do not increase can plan to discharge him home with home health with oxygen if required. We will get physical therapy evaluation today. Attestations Medical Necessity Statement*: Acute hypoxia because of COVID-19 pneumonia Time Spent in Patient Care: Greater than 35 minutes (>than 50% of time spent in counselling and/or direct pt care on unit) . Coding Level of Care Code Acute Hospital Orderly for [facility] Diagnoses Hypoxia R09.02 COVID-19 Claudication in peripheral vascular disease I73.9 Peripheral arterial disease with history of revascularization I73.9; Z98.890 Diabetes 1.5, managed as type 2 E13.9 Chronic kidney disease (CKD) stage G1/A2, glomerular filtration rate (GFR) equal to or greater than 90 mL/min/1.73 square meter and albuminuria creatinine ratio between 30-299 mg/g N18.1 Benign essential HTN I10 CHF (congestive heart failure) I50.32 Heart failure chronicity: chronic Heart failure type: diastolic Transaminitis R74.0 Lactic acidosis E87.2
[2019-12-13 11:32] LABS: Glucose Point of Care 342 mg/dL (70-110)
[2019-12-13 15:57] LABS: Glucose Point of Care 86 mg/dL (70-110)
[2019-12-13 21:23] LABS: Glucose Point of Care 105 mg/dL (70-110)
[2019-12-14] VITALS (21 sets, daily range): BP systolic 93–149; BP diastolic 64–95; PULSE 61–77; RESP 15–32; TEMP 36.6–36.8; O2SAT 87–98
[2019-12-14] MEDS: enoxaparin 40 mg/0.4 mL Syringe SUBCUT (01:37)
[2019-12-14 05:35] LABS: Basophils % 0.1 %; Hematocrit 34.7 % (42.0-52.0); Hemoglobin 11.5 g/dL (11.7-16.6); Lymphocytes # 0.7 10^3/uL (0.8-4.8); Lymphocytes % 8.7 %; Mean Corpuscular HGB Conc 33.1 g/dL (30.0-36.0); Mean Corpuscular Volume 99.4 fL (80-94); Mean Platelet Volume 10.7 fL (7.4-10.4); Monocytes # 0.6 10^3/uL (0.2-0.9); Monocytes % 7.7 %; Neutrophils # 6.53 10^3/uL (1.8-7.7); Neutrophils % 81.9 %; Nucleated Red Blood Cells % 0 %; Platelet Count 212 10^3/cmm (130-400); Red Blood Count 3.49 10^6/uL (4.1-5.3); Red Cell Distribution Width 13.8 % (12.1-15.1)
[2019-12-14 05:58] LABS: Alanine Aminotransferase 41 U/L (0-41); Albumin Level 3.7 g/dL (3.5-5.2); Alkaline Phosphatase 77 IU/L (40-130); Anion Gap 15.2 (5-19); Aspartate Amino Transferase 37 U/L (0-40); Blood Urea Nitrogen 30 mg/dL (8-23); Calcium 8.7 mg/dL (8.5-10.5); Carbon Dioxide 22 mmol/L (22-29); Chloride 100 mmol/L (98-107); Globulin 2.9 g/dL (1.3-4.6); Glucose 107 mg/dL (65-115); Osmolality Calculated 283 mOsm/kg (285-295); Potassium 4.2 mmol/L (3.5-5.1); Sodium 133 mmol/L (136-145); Total Bilirubin 1.2 mg/dL (0.15-1.2); Total Protein 6.6 g/dL (6.6-8.7)
--- NOTE | 2019-12-14 06:00 | XRR_ITS ---
PROCEDURE INFORMATION: Exam: XR Chest, 1 View Exam date and time: 12/14/2019 6:31 AM Age: 73 years old Clinical indication: Shortness of breath; Additional info: Covid TECHNIQUE: Imaging protocol: XR of the chest Views: 1 view. COMPARISON: CR XR chest 1V portable [id number] 12/12/2019 5:17 AM FINDINGS: Lungs: Low lung volumes. No significant interval change increased interstitial markings and mild patchy ground-glass opacities at the lung bases, again left greater than right. No lobar consolidation. Pleural space: Unremarkable. No evidence of pleural effusion or pneumothorax. Heart/Mediastinum: Unremarkable. No cardiomegaly. Bones/joints: Postsurgical changes right shoulder. XR/XR chest 1V portable [id number] IMPRESSION: No significant interval change. Bibasilar ground-glass opacities and interstitial thickening, again left greater than right and consistent with reported COVID-19 pneumonia. No lobar consolidation.
[2019-12-14 06:17] LABS: Fibrinogen 387 mg/dL (174-498)
[2019-12-14 06:19] LABS: D Dimer 0.74 ug/mIFEU (0-0.59)
[2019-12-14 06:24] LABS: C Reactive Protein 12.3 mg/L (0.0-4.9); Creatine Phosphokinase 53 U/L (39-308); Lactate Dehydrogenase 302 U/L (135-225); NT Pro B Type Natriuretic Pept 1089 pg/mL (0-125)
[2019-12-14 06:54] LABS: Ferritin 2177 ng/mL (30-400)
[2019-12-14] MEDS: albuterol 8 gm MDI 2 PUFF INHALATION ×2 (07:45→19:22)
[2019-12-14 08:16] LABS: Glucose Point of Care 117 mg/dL (70-110)
--- NOTE | 2019-12-14 09:19 | PM.PN ---
Subjective Subjective: Interval history: No acute events overnight. Denies any nausea, vomiting, headache. Patient has been doing well. Has finished his course of antiviral treatment. Overnight patient required 2 L nasal cannula oxygen supplementation to maintain saturation of 92%. Patient put on room air during my interview and has maintained over 90%. Denies any nausea, vomiting, headache, dizziness. Continues to work well with incentive spirometry and flutter valve. Vitals/I&O/Wt Last Vital Signs Temp 98.2 F 12/14/19 04:00 Pulse 71 12/14/19 05:30 Resp 27 H 12/14/19 05:30 BP 116/70 12/14/19 05:30 Pulse Ox 96 12/14/19 05:30 12/13/19 12/14/19 12/14/19 22:59 06:59 14:59 Intake Total 240 / 700 Output Total 375 / 725 630 / 1355 Balance -135 / -25 -630 / -655 Weight last 48 hrs Weight 78.018 kg Weight 78.88 kg Physical Exam Narrative: EXAM NARRATIVE: General: No acute distress, AO x3, HEENT: PERRLA, pupils bilaterally equal and reactive Chest: Bilateral bronchial breath sounds, left more than right, anterior more than posterior, good air entry bilaterally occasional rhonchi. CVS: S1-S2 regular, no murmurs, no tachycardia, no gallops, no rubs Abdomen: Soft, nontender, no organomegaly, bowel sounds present Neuro: No focal deficits, no facial deformity, AO x3, power 5/5 in all limbs Data : 12/14/19 04:20 12/14/19 04:20 A&P Assessment and plan (1) Hypoxia: Status: Acute (2) COVID-19: Status: Acute (3) Claudication in peripheral vascular disease: Status: Acute (4) Peripheral arterial disease with history of revascularization: Status: Acute (5) Diabetes 1.5, managed as type 2: Status: Acute (6) Chronic kidney disease (CKD) stage G1/A2, glomerular filtration rate (GFR) equal to or greater than 90 mL/min/1.73 square meter and albuminuria creatinine ratio between 30-299 mg/g: Status: Acute (7) Benign essential HTN: Status: Acute (8) CHF (congestive heart failure): Status: Acute Qualifiers: Heart failure chronicity: chronic Heart failure type: diastolic Qualified Code(s): I50.32 - Chronic diastolic (congestive) heart failure (9) Transaminitis: Status: Acute (10) Lactic acidosis: Resolved. Status: Acute Additional A&P Information Acute hypoxia because of COVID-19 pneumonia: At least moderate disease as patient is requiring at least 2 to 4 L of oxygen supplementation to keep saturation over 90%. Oxygen supplementation requirement continues to come down. Continue to monitor inflammatory markers daily. Monitor ferritin level, fibrinogen level, d-dimer level, CRP, LDH daily. For now stable. CTA chest abdomen pelvis done on admission negative for any PE. Finished 5-day course of Remdesevir Dexamethasone switch to oral prednisone 40 mg daily. Will require slow taper as an outpatient. Continue with vitamin C, zinc, Tessalon Perles. Advair, Spiriva. Incentive spirometry, flutter valve. Continues to do well with prominent semiprone position. Oxygen supplementation keeping saturation over 90%. Pro-Juanito, MRSA swab, Legionella, bacterial antigen negative. Last day of levofloxacin today. Patient d-dimer mildly elevated but trending down. CTA negative for PE. Patient recently had an angioplasty so we will have to continue on dual antiplatelet therapy. For now continue on Lovenox at prophylactic dose. If patient's breathing status worsen or d-dimer continue to elevate even after antibiotic treatment will start on therapeutic dose. Most likely if patient goes on full dose anticoagulation will need for 14 days. Lactic acidosis: Resolved. Most likely because of severe sepsis on admission along with metformin use as an outpatient. Transaminitis: Most likely because of COVID-19 pneumonia. Stable for now. For now continue to monitor. Lipid panel results appreciated. For now we will stop the statins. Most likely patient requires a lower dose of statin than what he is on at present. Type 2 diabetes mellitus: HbA1c done on September 2019 was 6.7. Insulin sliding scale at moderate dose. Carb consistent diet. Hypertension: Goal blood pressure less than 140/90 mmHg. Blood pressures better now. For now continue to hold off on lisinopril. Most likely will start him on low-dose of Benzapril on discharge. Continue home dose of metoprolol. Continue to monitor blood pressures regularly. Peripheral arterial disease: Post angioplasty recently. Patient is been followed up with a vascular surgeon at [facility] for further procedure. Continue on aspirin, Plavix, metoprolol at home dose. Continue to monitor patient pulses regularly. CKD: Baseline creatinine 1.2-1.6 in recent times. Creatinine baseline for now. Medical reconciliation done for nephrotoxic drugs. Continue to monitor BMP daily. Congestive heart failure: Diastolic. Echocardiogram shows EF of 60% with grade 1 diastolic dysfunction. Euvolemic at present. Continue to monitor. Full code. Lovenox for DVT prophylaxis Cardiac carb consistent diet. Protonix for PUD prophylaxis. Patient's care discussed in detail with patient's on phone today. All the questions were answered. Discharge planning: He has finished his course of antibiotic treatment.-Switched over to oral steroids. Plan will be to monitor for next 24 hours, ambulate in the unit. Plan to discharge tomorrow if he continues to remain stable with home health. Plan has been discussed in detail with both patient and patient's . Attestations Medical Necessity Statement*: Acute hypoxic respiratory failure from COVID-19 pneumonia, improving Time Spent in Patient Care: Greater than 35 minutes (>than 50% of time spent in counselling and/or direct pt care on unit). Coding Level of Care Code Acute Property Management Supervisor for [facility] Fwd Diagnoses Hypoxia R09.02 COVID-19 Claudication in peripheral vascular disease I73.9 Peripheral arterial disease with history of revascularization I73.9; Z98.890 Diabetes 1.5, managed as type 2 E13.9 Chronic kidney disease (CKD) stage G1/A2, glomerular filtration rate (GFR) equal to or greater than 90 mL/min/1.73 square meter and albuminuria creatinine ratio between 30-299 mg/g N18.1 Benign essential HTN I10 CHF (congestive heart failure) I50.32 Heart failure chronicity: chronic Heart failure type: diastolic Transaminitis R74.0 Lactic acidosis E87.2
[2019-12-14] MEDS: ferrous gluconate 324 mg Tablet PO ×2 (09:38→17:07)
[2019-12-14] MEDS: ascorbic acid 500 mg Tablet PO ×2 (09:39→17:07)
[2019-12-14] MEDS: allopurinol 100 mg Tablet PO (09:39)
[2019-12-14] MEDS: clopidogrel 75 mg Tablet PO (09:44)
[2019-12-14] MEDS: benzonatate 100 mg Capsule PO ×3 (09:44→20:52)
[2019-12-14] MEDS: aspirin 81 mg EC Tablet PO (09:44)
[2019-12-14] MEDS: metoprolol tartrate 50 mg Tablet 25 MG PO ×2 (09:45→17:07)
[2019-12-14] MEDS: pantoprazole DR 40 mg Tablet PO (09:45)
[2019-12-14] MEDS: nystatin 100,000 unit/mL UDC 5 mL 100000 UNIT PO ×4 (09:45→20:52)
[2019-12-14] MEDS: predniSONE 20 mg Tablet 40 MG PO (09:46)
[2019-12-14] MEDS: zinc gluconate 50 mg Tablet PO (09:46)
[2019-12-14 11:48] LABS: Glucose Point of Care 172 mg/dL (70-110)
[2019-12-14 16:52] LABS: Glucose Point of Care 240 mg/dL (70-110)
[2019-12-14 20:30] LABS: Glucose Point of Care 166 mg/dL (70-110)
[2019-12-15] VITALS (8 sets, daily range): BP systolic 97–135; BP diastolic 64–78; PULSE 60–77; RESP 18–20; TEMP 36.4; O2SAT 84–96
[2019-12-15] MEDS: enoxaparin 40 mg/0.4 mL Syringe SUBCUT (00:28)
--- NOTE | 2019-12-15 05:17 | PC.NURSE ---
PT SEEMED UPSET EARLIER IN THE SHIFT. PT STATES THAT THEY WANT TO GO HOME. PT STATES THAT THEY DON'T WANT THEIR F-ING MENU. PT WAS REDIRECT. PT DENIES PAIN. WILL CONTINUE TO MONITOR.
[2019-12-15 06:22] LABS: Basophils % 0.2 %; Eosinophils % 0.2 %; Hematocrit 34.7 % (42.0-52.0); Hemoglobin 11.6 g/dL (11.7-16.6); Lymphocytes # 0.6 10^3/uL (0.8-4.8); Lymphocytes % 7.7 %; Mean Corpuscular HGB Conc 33.4 g/dL (30.0-36.0); Mean Corpuscular Hemoglobin 33.1 pg (28.0-34.0); Mean Corpuscular Volume 99.1 fL (80-94); Mean Platelet Volume 10.9 fL (7.4-10.4); Monocytes # 0.6 10^3/uL (0.2-0.9); Monocytes % 7.6 %; Neutrophils # 6.68 10^3/uL (1.8-7.7); Neutrophils % 82.8 %; Nucleated Red Blood Cells % 0 %; Platelet Count 204 10^3/cmm (130-400); Red Cell Distribution Width 13.9 % (12.1-15.1); White Blood Count 8.1 10^3/uL (4.0-10.0)
[2019-12-15 07:00] LABS: Alanine Aminotransferase 34 U/L (0-41); Albumin Level 3.1 g/dL (3.5-5.2); Alkaline Phosphatase 73 IU/L (40-130); Anion Gap 16.5 (5-19); Aspartate Amino Transferase 27 U/L (0-40); Blood Urea Nitrogen 30 mg/dL (8-23); Calcium 8.5 mg/dL (8.5-10.5); Carbon Dioxide 20 mmol/L (22-29); Chloride 103 mmol/L (98-107); Glucose 80 mg/dL (65-115); Osmolality Calculated 285 mOsm/kg (285-295); Potassium 4.5 mmol/L (3.5-5.1); Sodium 135 mmol/L (136-145); Total Protein 6.1 g/dL (6.6-8.7)
[2019-12-15 07:09] LABS: C Reactive Protein 19.5 mg/L (0.0-4.9); Creatine Phosphokinase 35 U/L (39-308); NT Pro B Type Natriuretic Pept 891 pg/mL (0-125)
[2019-12-15 07:11] LABS: Fibrinogen 344 mg/dL (174-498)
[2019-12-15 07:13] LABS: D Dimer 0.65 ug/mIFEU (0-0.59)
[2019-12-15 07:38] LABS: Glucose Point of Care 96 mg/dL (70-110)
[2019-12-15 07:51] LABS: Ferritin 1797 ng/mL (30-400)
[2019-12-15 07:52] LABS: Lactate Dehydrogenase 268 U/L (135-225)
[2019-12-15] MEDS: zinc gluconate 50 mg Tablet PO (08:42)
[2019-12-15] MEDS: ferrous gluconate 324 mg Tablet PO (08:42)
[2019-12-15] MEDS: predniSONE 20 mg Tablet 40 MG PO (08:42)
[2019-12-15] MEDS: clopidogrel 75 mg Tablet PO (08:42)
[2019-12-15] MEDS: metoprolol tartrate 50 mg Tablet 25 MG PO (08:42)
[2019-12-15] MEDS: ascorbic acid 500 mg Tablet PO (08:43)
[2019-12-15] MEDS: pantoprazole DR 40 mg Tablet PO (08:43)
[2019-12-15] MEDS: aspirin 81 mg EC Tablet PO (08:43)
[2019-12-15] MEDS: benzonatate 100 mg Capsule PO (08:43)
[2019-12-15] MEDS: allopurinol 100 mg Tablet PO (08:45)
[2019-12-15] MEDS: nystatin 100,000 unit/mL UDC 5 mL 100000 UNIT PO (08:46)
--- NOTE | 2019-12-15 09:40 | PC.SOCIAL ---
IMM Updated Updated pt's on Pg 2 IMM, via phone. No questions voiced. Signed, dated, & timed copy for chart.
--- NOTE | 2019-12-15 11:45 | P.DS_ITS ---
Discharge Providers Date of Admission: 12/10/19 00:01 Date of Discharge: December 15, 2019 Attending Provider at Admission: Suzie Jasso MD Attending Provider at Discharge: Liborio Esposito MD Primary Care Provider: RICARDO Trujillo Diagnoses at Discharge Discharge Diagnosis (1) Hypoxia: Status: Acute (2) COVID-19: Status: Acute (3) Claudication in peripheral vascular disease: Status: Acute (4) Peripheral arterial disease with history of revascularization: Status: Acute (5) Diabetes 1.5, managed as type 2: Status: Acute (6) Chronic kidney disease (CKD) stage G1/A2, glomerular filtration rate (GFR) equal to or greater than 90 mL/min/1.73 square meter and albuminuria creatinine ratio between 30-299 mg/g: Status: Acute (7) Benign essential HTN: Status: Acute (8) CHF (congestive heart failure): Status: Acute Problem details: Diastolic Qualifiers: Heart failure type: diastolic Heart failure chronicity: chronic Qualified Code(s): I50.32 - Chronic diastolic (congestive) heart failure (9) Transaminitis: Status: Acute (10) Lactic acidosis: Status: Acute Reason for Visit Reason for Visit: BOWEL INCONT, SOB Hospital Course Discharge Summary: Ji Ibarra is a 73 year old male past medical history of metastatic prostate cancer on chemotherapy, CKD stage II, type 2 diabetes mellitus, peripheral artery disease with history of revascularization, with recent peripheral angiogram showing Single-vessel runoff to the foot through left anterior tibial artery had proximal 80% highly calcified stenosis it was treated with balloon angioplasty with good result which reduced lesion to less than 40%. Good blood flow noted in that single vessel. He was discharged on November 07. Patient was seen in Dr. Benavides's office on November 14 after which he was referred to a vascular surgeon in [facility]. Patient will at [facility] for 3 days in hospital. He states since discharge from [facility] he has not been feeling well. For last 3 days he has been having extreme weakness with legs feeling like jelly when he would try to walk along with 2 episodes of diarrhea last night, mild shortness of breath and cough with expectoration. Expectoration is mostly white mucoid in color without any blood business change manager foul smell. He does not complain of any fever, headache, dizziness, chest pain, palpitation, loss of sense of taste or smell, dysuria, weakness in any of his limbs more than usual, claudication pain, Muscle pain. He does state that he has been worked up as an outpatient for possible lumbar surgery has declined his outpatient claudication symptoms are most likely because of lumbar radiculopathy. On admission his blood work showed a white count of 5.1, hemoglobin of 11.4, platelet of 141, d-dimer 1.26, sodium of 130, creatinine of 1.5, bicarb of 1.6, lactate of 4.7 we will reduce him to 1.4 after fluid resuscitation, ferritin of 2180, AST/ALT of 92/61, LDH of 295, CRP of 34.9, pro-Juanito of 0.47, rapid COVID antigen negative, CTA PE protocol done on admission showing no visible PE along with bilateral patchy groundglass interstitial opacities consistent with COVID- 19 pneumonia. He was admitted to the viral ICU and was started on antiviral treatment with Remdesivir, dexamethasone along with vitamin C zinc and inhalers. He tolerated treatment well. He finished his antiviral treatment after 5 days and after that he was monitored for 24 hours on oral steroids. His oxygen requirement continue to trend down. He has history of claudication in his legs for which he has been worked up as an outpatient both with vascular surgeon and MRI of his back to rule out lumbar stenosis. He has been advised to do MRI of his back after with 2 to 3 weeks after he is finished his quarantine. He was seen by physical therapy during hospitalization and he worked well with physical therapy. Patient on the day of discharge is not requiring any oxygen at rest but is requiring 2 to 3 L of supplemental oxygenation on home O2 evaluation on exertion. It has been arranged for him. He is been discharged in hemodynamically stable condition with home health and oxygen with advised to continue inhalers for next 2 weeks along with vitamin C and zinc. He supposed to be on a Medrol pack which will be weaned off gradually. He is not on any blood thinner because he is been taking dual antiplatelet as an outpatient for recent peripheral balloon angioplasty. His dose of aspirin has been increased to 325 mg for next 2 weeks after which he lund pposed to cut it down back to 81 mg daily. His discharge plan has been discussed in detail with his . He is also been explained about proper quarantine for next 2 weeks along with the advised to use mask whenever he is around somebody else. Physical Exam Narrative: EXAM NARRATIVE: General: No acute distress, AO x3, HEENT: PERRLA, pupils bilaterally equal and reactive Chest: Bilateral bronchial breath sounds, left more than right, anterior more than posterior, good air entry bilaterally occasional rhonchi. CVS: S1-S2 regular, no murmurs, no tachycardia, no gallops, no rubs Abdomen: Soft, nontender, no organomegaly, bowel sounds present Neuro: No focal deficits, no facial deformity, AO x3, power 5/5 in all limbs Discharge Data Data Completed and Pending: Completed Studies During Hospitalization Category Date Time Status CT angio chest PE protcl [id number] Urge nt Cat Scan 12/09/19 18:14 Completed XR chest 1V emily ble 33014 Q48H Exams 12/12/19 06:00 Completed XR chest 1V emily ble [id number] Q48H Exams 12/14/19 06:00 Completed XR chest 1V emily ble [id number] Stat Exams 12/09/19 16:53 Completed CV echo complete* [id number] Routine Ultrasound 12/10/19 14:53 [place] [id number] Urgent Ultrasound 12/10/19 14:53 Completed Pending at discharge Category Date Time Status C Reactive Protei n AM LABS Lab 12/16/19 04:00 Ordered Complete Blood Co unt w/Auto AM LABS Lab 12/16/19 04:00 Ordered Comprehensive Met abolic Panel AM LA BS Lab 12/16/19 04:00 Ordered Creatine Phosphok inase AM LABS Lab 12/16/19 04:00 Ordered D Dimer AM LABS Lab 12/16/19 04:00 Ordered Ferritin AM LABS Lab 12/16/19 04:00 Ordered Fibrinogen AM LAB S Lab 12/16/19 04:00 Ordered Lactate Dehydroge nase AM LABS Lab 12/16/19 04:00 Ordered NT Pro B Type Gabriella riuretic Pept AM L ABS Lab 12/16/19 04:00 Ordered Labs from last 24 hours 12/15/19 12/15/19 12/15/19 07:32 04:10 04:10 WBC RBC Hgb Hct MCV MCH MCHC RDW Plt Count MPV Neut % (Auto) Lymph % (Auto) [place] % (Auto) Eos % (Auto) Baso % (Auto) Neut # (Auto) Lymph # (Auto) [place] # (Auto) Eos # (Auto) Baso # (Auto) Nucleated RBC % (a uto) Nucleated RBCs # Fibrinogen 344 D-Dimer 0.65 H Sodium Potassium Chloride Carbon Dioxide Anion Gap BUN Creatinine GFR Calculation Glucose POC Glucose 96 Calculated Osmolal ity Calcium Ferritin 1797 H Total Bilirubin AST ALT Alkaline Phosphata se Lactate Dehydrogen ase 268 H Creatine Kinase 35 L C-Reactive Protein 19.5 H NT-Pro-B Natriuret Pep 891 H Total Protein Albumin Globulin 12/15/19 12/15/19 12/14/19 04:10 04:10 20:07 WBC 8.1 RBC 3.50 L Hgb 11.6 L Hct 34.7 L MCV 99.1 H MCH 33.1 MCHC 33.4 RDW 13.9 Plt Count 204 MPV 10.9 H Neut % (Auto) 82.8 Lymph % (Auto) 7.7 [place] % (Auto) 7.6 Eos % (Auto) 0.2 Baso % (Auto) 0.2 Neut # (Auto) 6.68 Lymph # (Auto) 0.6 L [place] # (Auto) 0.6 Eos # (Auto) 0.0 Baso # (Auto) 0.0 Nucleated RBC % (a uto) 0 Nucleated RBCs # 0.0 Fibrinogen D-Dimer Sodium 135 L Potassium 4.5 Chloride 103 Carbon Dioxide 20 L Anion Gap 16.5 BUN 30 H Creatinine 1.0 GFR Calculation Not Reportable Glucose 80 POC Glucose 166 Calculated Osmolal ity 285 Calcium 8.5 Ferritin Total Bilirubin 1.0 AST 27 ALT 34 Alkaline Phosphata se 73 Lactate Dehydrogen ase Creatine Kinase C-Reactive Protein NT-Pro-B Natriuret Pep Total Protein 6.1 L Albumin 3.1 L Globulin 3.0 12/14/19 12/14/19 16:36 11:31 WBC RBC Hgb Hct MCV MCH MCHC RDW Plt Count MPV Neut % (Auto) Lymph % (Auto) [place] % (Auto) Eos % (Auto) Baso % (Auto) Neut # (Auto) Lymph # (Auto) [place] # (Auto) Eos # (Auto) Baso # (Auto) Nucleated RBC % (a uto) Nucleated RBCs # Fibrinogen D-Dimer Sodium Potassium Chloride Carbon Dioxide Anion Gap BUN Creatinine GFR Calculation Glucose POC Glucose 240 172 Calculated Osmolal ity Calcium Ferritin Total Bilirubin AST ALT Alkaline Phosphata se Lactate Dehydrogen ase Creatine Kinase C-Reactive Protein NT-Pro-B Natriuret Pep Total Protein Albumin Globulin Vitals: Last Vital Signs Temp 97.9 F 12/14/19 19:47 Pulse 69 12/15/19 09:30 Resp 18 12/15/19 09:30 BP 107/76 12/15/19 09:56 Pulse Ox 93 12/15/19 10:14 Discharge Plan Discharge Patient Disposition: Home Health Service Condition: Stable Prescriptions: New Advair Diskus 250-50 mcg/dose Blister With Device 1 puff inhalation BID.RESPIRATORY 14 Days Qty: 28 RF: 0 nystatin 100,000 unit/mL Suspension 100,000 unit PO QID 7 Days Qty: 28 RF: 0 Vitamin C 500 mg Tablet 500 mg PO BID 30 Days Qty: 60 RF: 0 benzonatate 100 mg Capsule 100 mg PO TID PRN (Reason: cough) 7 Days Qty: 21 RF: 0 zinc gluconate 50 mg Tablet 50 mg PO DAILY 30 Days Qty: 30 RF: 0 Spiriva with HandiHaler 18 mcg Capsule, W/Inhalation Device 18 mcg inhalation DAILY.RESPIRATORY 14 Days Qty: 14 RF: 0 ferrous gluconate 324 mg (37.5 mg iron) Tablet 324 mg PO BIDWM 30 Days Qty: 30 RF: 0 Medrol (Jhonathan) 4 mg tablets,dose pack See Rx Instructions .ROUTE .COMPLEX Qty: 21 RF: 0 aspirin 325 mg tablet 325 mg PO DAILY Qty: 14 RF: 0 Continued allopurinol 100 mg tablet 100 mg PO DAILY RF: 0 metformin 500 mg tablet 1,000 mg PO BID RF: 0 metoprolol tartrate 50 mg tablet 50 mg PO BID RF: 0 atorvastatin 20 mg tablet 20 mg PO DAILY Qty: 90 RF: 3 clopidogrel 75 mg tablet 75 mg PO DAILY Qty: 30 RF: 0 pantoprazole [Protonix] 40 mg tablet,delayed release (DR/EC) 40 mg PO DAILY Qty: 30 RF: 0 Changed lisinopril 20 mg tablet 10 mg PO DAILY Qty: 0 RF: 0 Held aspirin [Adult Low Dose Aspirin] 81 mg tablet,delayed release (DR/EC) 81 mg PO DAILY RF: 0 Hold Instructions: Resume on 12/28/19. Discharge Orders: Discharge Order (Routine); Ordered 12/15/19 Ordered By: Liborio Esposito Other Ambulatory Orders: DME: Oxygen (Order) Location: None Selected Ordered By: Liborio Esposito [place] [facility] [place] [facility] [place] [facility] [place]Outside] [facility], [Family Provider] - Moni Pardo FNP [Primary Care Provider] - 1-3 days Discharge Diet: Cardiac, Diabetic and Low Salt Discharge Activity: Resume usual activity and Increase activity as tolerated Patient Instructions: Benzonatate (By mouth), Iron Supplements (By mouth), Aspirin (By mouth), Nystatin (By mouth), Zinc Sulfate (By mouth), Ascorbic Acid (Vitamin C) (By mouth), Methylprednisolone (By mouth), Fluticasone/Salmeterol (By breathing), Tiotropium (By breathing) Activity Restrictions/Additional Instructions: Please see your primary care provider within next 1 to 3 days. You will be on 2 inhalers along with vitamin C and zinc for next 2 weeks. He supposed to take aspirin 325 mg for next 2 weeks after which he supposed to come down to 81 mg daily. Your dose of lisinopril has been decreased as per your blood pressures. Please make sure that you do self quarantine for next 2 weeks and you are wearing a mask when in company of others. Please do MRI of your back which is been scheduled from with your primary care provider in next 2 to 3 weeks after your quarantine time has been completed. Discharge Attestations Time Spent in Discharge Care*: greater than 30 min Specific Discharge Activities: Specific discharge activities: educating patient, educating and/or supporting family/caregiver, discussing with special education case manager/social workers/dc planners, documenting/other paperwork and evaluating patient/reviewing data Status at Discharge: Cognitive status at discharge: cognitively intact , Behavioral status at discharge: cooperative , Functional status at discharge: uses cane/walker Overall status at discharge: patient is progressing back to baseline Quality Metrics Clinical Quality Measures During this hospital stay, did patient experience: None Coding Level of Care Code Acute Machine Tester for [facility] [place] Diagnoses Hypoxia R09.02 COVID-19 Claudication in peripheral vascular disease I73.9 Peripheral arterial disease with history of revascularization I73.9; Z98.890 Diabetes 1.5, managed as type 2 E13.9 Chronic kidney disease (CKD) stage G1/A2, glomerular filtration rate (GFR) equal to or greater than 90 mL/min/1.73 square meter and albuminuria creatinine ratio between 30-299 mg/g N18.1 Benign essential HTN I10 CHF (congestive heart failure) I50.32 Heart failure type: diastolic Heart failure chronicity: chronic Transaminitis R74.0 Lactic acidosis E87.2
[2019-12-15 11:51] LABS: Glucose Point of Care 196 mg/dL (70-110)
--- NOTE | 2019-12-19 14:24 | PC.SOCIAL ---
Spoke with the on the phone. She stated that her will not be going into the Dr. office nor are they able to do virtual visits. She did state that they are able to do phone calls with the doctor office though. He did have a call this week from Moni Pardo. When asked how he was doing, the stated that Mr. Ibarra was having some trouble with his blood pressure. When asked if she knew why, she assumed it may have been from him not drinking fluids. He would drink maybe half a bottle of water. She did say he was drinking better today, about 4 bottle of water and his blood pressure is coming back up. I asked if the company had been out to see him, she stated that that the nurse has as well as occupational therapy. I did call and speak with Jeni the nurse that has seen him at home already, she stated that she too was concerned about the same things. She stated that she is keeping an eye on the situation and plans to continue to convince him to drink fluids and plans to monitor him closely. I did go over the many health issues to be concerned about with the . This included trouble breathing, shortness of breath, lips and face being blue, pressure or pain in the chest lasting longer than 5 minutes, confusion or trouble waking. She stated that she will be very visual of these symptoms. I also went over ways to prevent the spread of the COVID 19. This included: washing hands with a lather for 20 seconds, sanitizing surfaces, keeping 6ft social distancing, covering cough and sneezes, mask wearing and washing instruction. We also spoke of ways to keep his immune system up such as keeping up with Dr. appointments and immunizations, eating right and drinking plenty of fluids and relieving any life stresses. At the end of the conversation we spoke about the benefits of Plasma donation, his would like for me to send information.
== END 2019-12-15 13:45 | disposition home health service (06) | DRG 871 ==
LOC: ER 23:42 → ICU 12-10 00:01
PROVIDERS: Family Medicine; Admitting Provider Hospitalist; Emergency Provider Emergency Medicine; PCP Nurse Practitioner Family; Visit Provider Student in an Organized Health Care Education/Training Program
DX: A41.89 Other specified sepsis (principal); U07.1 COVID-19; J12.89 Other viral pneumonia; I13.0 Hypertensive heart and chronic kidney disease with heart failure and stage 1 through stage 4 chronic kidney disease, or unspecified chronic kidney disease; I50.32 Chronic diastolic (congestive) heart failure; E87.2 Acidosis; R65.20 Severe sepsis without septic shock; C61 Malignant neoplasm of prostate; Z79.899 Other long term (current) drug therapy; E11.22 Type 2 diabetes mellitus with diabetic chronic kidney disease; E11.51 Type 2 diabetes mellitus with diabetic peripheral angiopathy without gangrene; Z95.820 Peripheral vascular angioplasty status with implants and grafts; N40.0 Benign prostatic hyperplasia without lower urinary tract symptoms; M10.10 Lead-induced gout, unspecified site; Z87.891 Personal history of nicotine dependence; M54.16 Radiculopathy, lumbar region; Z79.02 Long term (current) use of antithrombotics/antiplatelets; Z79.84 Long term (current) use of oral hypoglycemic drugs; N18.2 Chronic kidney disease, stage 2 (mild)
CPT/HCPCS: 12345; 36415; 36416; 71045; 71275; 80053; 80061; 81001; 82436; 82550; 82728; 82803; 82962; 83540; 83550; 83605; 83615; 83735; 83880; 84133; 84145; 84300; 84443; 84484; 85025; 85378; 85384; 85610; 85730; 86140; 87040; 87426; 87449; 87641; 93005; 93306; 93970; 94640; 96372; 96375; 97110; 97161; 99283; 99284; J1100; J1650; J1815; J3535; J7040; J7512; Q9967

== ENCOUNTER 2019-12-25 20:24 | Inpatient (IN) | payer MEDICARE, SELFPAY ==
[2019-12-25 20:26] VITALS: BP 97/71; PULSE 124; RESP 20; TEMP 36.5; O2SAT 96; BMI 25.1
--- NOTE | 2019-12-25 20:58 | ECG_ITS ---
[facility] Test Date: 2019-12-25 Pat Name: Ji Ibarra Department: Room: Gender: Male Security Tester: : 1945 Requested By: Annabel Gamez Order Number: [id number] Wilber MD: Raghav Baker M.D. Measurements Intervals [place] Rate: 116 P: [place]: -1 QRS: -13 QRSD: 85 T: 85 QT: 309 QTc: 430 Interpretive Statements Sinus tachycardia with frequent premature complexes NONSPECIFIC T-WAVE ABNORMALITY ABNORMAL RHYTHM ECG Compared to ECG 12/07/2019 19:50:57 T-wave abnormality still present Electronically Signed On 12-26-2019 9:39:24 CDT by Raghav Baker M.D. [email or web address]
--- NOTE | 2019-12-25 20:59 | XR_ITS ---
WS: [id number] Portable AP upright chest, 12/25/2019 Clinical Data: weakness Comparison: Portable chest, 12/14/2019. Findings: No nodules, masses or effusions are seen. The heart is normal. The pulmonary vascularity is not increased. No pneumothorax is seen. The patchy opacities at both lung bases have not changed. Mo nitor leads on the chest wall. There are 3 orthopedic anchors in the right humeral head. XR/XR chest 1V portable [id number] Impression: No change in bilateral basilar opacities.
--- NOTE | 2019-12-25 21:03 | ED_ITS ---
Documented by User: Annabel Golden MD 12/26/19 10:50 HPI - Weakness General: Chief complaint: Weakness Stated complaint: weakness, low bp Time Seen by Provider: 12/25/19 20:26 History of Present Illness: HPI Narrative: This patient is a 74-year-old male who presents with weakness. He has had several hospitalizations over the past few weeks. He was hospitalized at [facility] on 02 December. He went to the ER there for leg weakness which is been ongoing since October. He was tested for COVID and found to be positive although his notes that he had no symptoms at that time. He was admitted and discharged a day or 2 later. He then worsened and was admitted here for several days and it sounds like he got remdesivir by his 's description of his treatment. He was discharged home 2 weeks ago and since then has been incredibly weak and has had low blood pressures. She has not been giving him his blood pressure medicine because the highest it ever seems to get is about 100 systolic. They have not seen their primary care doctor because he was unable to walk when their appointment came up a few days after his hospital discharge. Kaitlyn rosetta nurse called them from their insurance company to review his care and apparently recommended that they come to the ER with his low blood pressures. His said kaitlyn it was 70/50. She said although he has had weakness for the whole 2 weeks since his discharge is been w orsening in the past 2 days. Complaint: generalized weakness, lack of energy and difficulty walking Onset (ago): week(s) Duration: constant Location: generalized Migration: none Severity: severe Quality: numbness (Hands and feet) Relieving factors: none Exacerbating factors: none Context: other (He was started on Advair and Spiriva during his last hospitalization) Associated symptoms: Reports decreased appetite; Denies chest pain, melena, dysuria, easy bruising, fever(s), headache(s), nausea, short of breath or syncope Review of Systems General: Reports: 10 or more systems reviewed and unremarkable except in HPI and below Const: Denies: fever(s) Eyes: Denies: change in vision ENMT: Denies: odynophagia Card: Denies: chest pain or syncope Resp: Denies: dyspnea, productive cough or non-productive cough GI: Denies: nausea or melena : Denies: dysuria Musc: Denies: neck pain or back pain Skin/Breast: Denies: rash Neuro: Denies: headache(s), numbness in extremities or weakness in extremities Juan Carlos/Lymph: Denies: easy bruising or easy bleeding PFSH ED PFSH: Medical History Benign essential HTN BPH (benign prostatic hyperplasia) Carpal tunnel syndrome CHF (congestive heart failure) 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, glomerular filtration rate (GFR) equal to or greater than 90 mL/min/1.73 square meter and albuminuria creatinine ratio between 30-299 mg/g Claudication in peripheral vascular disease Diabetes 1.5, 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 Peripheral arterial disease with history of revascularization Prostate cancer Surgical History Previous back surgery S/P inguinal hernia repair Family History Father COPD (chronic obstructive pulmonary disease) Social History Smoking and tobacco status: former smoker Alcohol intake: never Household members: spouse Marital status: service: Yes branch: [employer] Current occupational status: retired Current gender identity: Male Melanie/Scientology: [employer] Physical Exam Const: COMMON NORMALS: no acute distress, patient oriented x3, no limitations and alert GENERAL APPEARANCE: cooperative, ill appearing, frail appearing and other (Pale) HENMT: HEAD & SCALP: normal to inspection FACE & SINUS: normal facial exam Eye: GENERAL EYE: appearance normal, both eyes and all related structures Neck/C-Spine: COMMON NORMALS: supple, no meningeal signs and no JVD Chest: COMMONS NORMALS: normal inspection of the chest Resp: COMMON NORMALS: normal respiratory effort, No use of accessory muscles a nd clear to auscultation bilaterally AUSCULTATION: clear to auscultation bilaterally Cardio: COMMON NORMALS: no JVD and No murmurs present (Cardio) RATE: tachycardic RHYTHM: abnormal rhythm irregularly irregular GI: COMMON NORMALS: Normal to inspection, nondistended, normoactive bowel sounds present, Soft to palpation and non-tender INSPECTION: Yes normal to inspection AUSCULTATION: Yes normoactive bowel sounds PALPATION: Yes Soft to palpation Back/Pelvis: COMMON NORMALS: thoracic and lumbar spine normal to inspection Extremity: COMMON NORMALS: normal to inspection Neuro: COMMON NORMALS: patient oriented x3 and moves all extremities SENSORIUM/ORIENTATION: Yes alert MENINGEAL SIGNS: Yes no meningeal signs SENSORY EXAM: Yes extremities (Decreased sensation in hands and feet. He says he can feel but not 100%.) MOTOR EXAM: 5/5 motor strength present throughout (Generalized, marked weakness) Psych: COMMON NORMALS: mental status grossly normal, cooperative and normal affect Skin: COMMON NORMALS: no rashes or lesions noted and turgor normal GENERAL SKIN EXAM: no rashes or lesions noted and turgor normal Course Vital Signs: Vital signs: Vital Signs Temperature 98.2 F 12/26/19 07:27 Pulse Rate 107 H 12/26/19 07:27 Respiratory Rate 18 12/26/19 07:27 Blood Pressure 112/68 12/26/19 07:27 Pulse Oximetry 94 12/26/19 07:27 MDM - Weakness Lab Data: Labs: Lab Results 12/25/19 12/25/19 12/25/19 Range/Units 21:12 21:12 21:12 WBC 14.1 H (4.0-10.0) 10^3/ uL RBC 3.79 L (4.1-5.3) 10^6/u L Hgb 12.5 (11.7-16.6) g/dL Hct 37.6 L (42.0-52.0) % MCV 99.2 H (80-94) fL MCH 33.0 (28.0-34.0) pg MCHC 33.2 (30.0-36.0) g/dL RDW 14.2 (12.1-15.1) % Plt Count 212 (130-400) 10^3/c mm MPV 11.2 H (7.4-10.4) fL Neut % (Auto) 82.6 % Lymph % (Auto) 8.6 % [place] % (Auto) 6.7 % Eos % (Auto) 1.1 % Baso % (Auto) 0.4 % Neut # (Auto) 11.68 H (1.8-7.7) 10^3/u L Lymph # (Auto) 1.2 (0.8-4.8) 10^3/u L [place] # (Auto) 1.0 H (0.2-0.9) 10^3/u L Eos # (Auto) 0.2 (0.0-0.8) 10^3/u L Baso # (Auto) 0.1 (0.0-0.1) 10^3/u L Nucleated RBC % (a uto) 0 % Nucleated RBCs # 0.0 /100WBC Sodium 130 L (136-145) mmol/L Potassium 4.3 (3.5-5.1) mmol/L Chloride 94 L (98-107) mmol/L Carbon Dioxide 19 L (22-29) mmol/L Anion Gap 21.3 H (5-19) BUN 19 (8-23) mg/dL Creatinine 1.1 (0.7-1.2) mg/dL GFR Calculation Not Reportable Glucose 177 H (65-115) mg/dL Calculated Osmolal ity 277 L (285-295) mOsm/k g Lactic Acid (0.5-2.2) mmol/L Calcium 9.1 (8.5-10.5) mg/dL Total Bilirubin 0.9 (0.15-1.2) mg/dL AST 34 (0-40) U/L ALT 34 (0-41) U/L Alkaline Phosphata se 112 (40-130) IU/L Troponin T Baselin e 54 H (0-15) ng/L C-Reactive Protein 11.6 H (0.0-4.9) mg/L Total Protein 6.8 (6.6-8.7) g/dL Albumin 3.5 (3.5-5.2) g/dL Globulin 3.3 (1.3-4.6) g/dL Lipase 108 H (13-60) U/L Urine Color (Yellow) Urine Appearance (CLEAR) Urine pH (5-7) Ur Specific Gravit y (1.005-1.030) Urine Protein (Negative) Urine Glucose (UA) (Normal) Urine Ketones (Negative) Urine Blood (Negative) Urine Nitrate (Negative) Urine Bilirubin (Negative) Urine Urobilinogen (Negative) mg/dL Ur Leukocyte Jessika ase (Negative) 12/25/19 12/25/19 Range/Units 21:12 22:35 WBC (4.0-10.0) 10^3/ uL RBC (4.1-5.3) 10^6/u L Hgb (11.7-16.6) g/dL Hct (42.0-52.0) % MCV (80-94) fL MCH (28.0-34.0) pg MCHC (30.0-36.0) g/dL RDW (12.1-15.1) % Plt Count (130-400) 10^3/c mm MPV (7.4-10.4) fL Neut % (Auto) % Lymph % (Auto) % [place] % (Auto) % Eos % (Auto) % Baso % (Auto) % Neut # (Auto) (1.8-7.7) 10^3/u L Lymph # (Auto) (0.8-4.8) 10^3/u L [place] # (Auto) (0.2-0.9) 10^3/u L Eos # (Auto) (0.0-0.8) 10^3/u L Baso # (Auto) (0.0-0.1) 10^3/u L Nucleated RBC % (a uto) % Nucleated RBCs # /100WBC Sodium (136-145) mmol/L Potassium (3.5-5.1) mmol/L Chloride (98-107) mmol/L Carbon Dioxide (22-29) mmol/L Anion Gap (5-19) BUN (8-23) mg/dL Creatinine (0.7-1.2) mg/dL GFR Calculation Glucose (65-115) mg/dL Calculated Osmolal ity (285-295) mOsm/k g Lactic Acid 3.8 H (0.5-2.2) mmol/L Calcium (8.5-10.5) mg/dL Total Bilirubin (0.15-1.2) mg/dL AST (0-40) U/L ALT (0-41) U/L Alkaline Phosphata se (40-130) IU/L Troponin T Baselin e (0-15) ng/L C-Reactive Protein (0.0-4.9) mg/L Total Protein (6.6-8.7) g/dL Albumin (3.5-5.2) g/dL Globulin (1.3-4.6) g/dL Lipase (13-60) U/L Urine Color Yellow (Yellow) Urine Appearance Clear (CLEAR) Urine pH 5 (5-7) Ur Specific Gravit y 1.015 (1.005-1.030) Urine Protein Neg (Negative) Urine Glucose (UA) Norm (Normal) Urine Ketones Negative (Negative) Urine Blood Neg (Negative) Urine Nitrate Negative (Negative) Urine Bilirubin Neg (Negative) Urine Urobilinogen 4 H (Negative) mg/dL Ur Leukocyte Jessika ase Negative (Negative) Discharge Plan Discharge Patient Disposition: Admitted As Inpatient Admit Provider: Khoa Douglas Clinical Impression: Weakness, Hypotension Condition: Stable Referrals: [facility], [Family Provider] - Moni Pardo FNP [Primary Care Provider] - Discharge Date/Time: 12/26/19 02:28 Coding Level of Care Code ED Filter Plant Supervisor for Chg Fwd Exam Comprehensive Documented by User: Jillian Moctezuma MD 12/26/19 01:21 HPI - Weakness General: Chief complaint: Weakness Stated complaint: weakness, low bp Time Seen by Provider: 12/25/19 20:26 PFSH ED PFSH: Medical History Benign essential HTN BPH (benign prostatic hyperplasia) Carpal tunnel syndrome CHF (congestive heart failure) 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, glomerular filtration rate (GFR) equal to or greater than 90 mL/min/1.73 square meter and albuminuria creatinine ratio between 30-299 mg/g Claudication in peripheral vascular disease Diabetes 1.5, 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 Peripheral arterial disease with history of revascularization Prostate cancer Surgical History Previous back surgery S/P inguinal hernia repair Family History Father COPD (chronic obstructive pulmonary disease) Social History Smoking and tobacco status: former smoker Alcohol intake: never Household members: spouse Marital status: service: Yes branch: [employer] Current occupational status: retired Current gender identity: Male Melanie/Scientology: [employer] Course Vital Signs: Vital signs: Vital Signs Temperature 98.2 F 12/26/19 07:27 Pulse Rate 107 H 12/26/19 07:27 Respiratory Rate 18 12/26/19 07:27 Blood Pressure 112/68 12/26/19 07:27 Pulse Oximetry 94 12/26/19 07:27 MDM - Weakness MDM Narrative: Medical decision making narrative: Patient presents with hypotension and weakness. His blood pressures improved greatly after IV fluids and is now 117/57. No obvious source of infection but will give patient antibiotics and draw blood cultures. He has no back pain. He does have leg weakness that is been going on for months since October. He states he has not been able to walk since October. CT of his L-spine here is normal. Patient was seen here by Dr. Israel and will admit at this time. Lab Data: Labs: Lab Results 12/25/19 12/25/19 12/25/19 Range/Units 21:12 21:12 21:12 WBC 14.1 H (4.0-10.0) 10^3/ uL RBC 3.79 L (4.1-5.3) 10^6/u L Hgb 12.5 (11.7-16.6) g/dL Hct 37.6 L (42.0-52.0) % MCV 99.2 H (80-94) fL MCH 33.0 (28.0-34.0) pg MCHC 33.2 (30.0-36.0) g/dL RDW 14.2 (12.1-15.1) % Plt Count 212 (130-400) 10^3/c mm MPV 11.2 H (7.4-10.4) fL Neut % (Auto) 82.6 % Lymph % (Auto) 8.6 % [place] % (Auto) 6.7 % Eos % (Auto) 1.1 % Baso % (Auto) 0.4 % Neut # (Auto) 11.68 H (1.8-7.7) 10^3/u L Lymph # (Auto) 1.2 (0.8-4.8) 10^3/u L [place] # (Auto) 1.0 H (0.2-0.9) 10^3/u L Eos # (Auto) 0.2 (0.0-0.8) 10^3/u L Baso # (Auto) 0.1 (0.0-0.1) 10^3/u L Nucleated RBC % (a uto) 0 % Nucleated RBCs # 0.0 /100WBC Sodium 130 L (136-145) mmol/L Potassium 4.3 (3.5-5.1) mmol/L Chloride 94 L (98-107) mmol/L Carbon Dioxide 19 L (22-29) mmol/L Anion Gap 21.3 H (5-19) BUN 19 (8-23) mg/dL Creatinine 1.1 (0.7-1.2) mg/dL GFR Calculation Not Reportable Glucose 177 H (65-115) mg/dL Calculated Osmolal ity 277 L (285-295) mOsm/k g Lactic Acid (0.5-2.2) mmol/L Calcium 9.1 (8.5-10.5) mg/dL Total Bilirubin 0.9 (0.15-1.2) mg/dL AST 34 (0-40) U/L ALT 34 (0-41) U/L Alkaline Phosphata se 112 (40-130) IU/L Troponin T Baselin e 54 H (0-15) ng/L C-Reactive Protein 11.6 H (0.0-4.9) mg/L Total Protein 6.8 (6.6-8.7) g/dL Albumin 3.5 (3.5-5.2) g/dL Globulin 3.3 (1.3-4.6) g/dL Lipase 108 H (13-60) U/L Urine Color (Yellow) Urine Appearance (CLEAR) Urine pH (5-7) Ur Specific Gravit y (1.005-1.030) Urine Protein (Negative) Urine Glucose (UA) (Normal) Urine Ketones (Negative) Urine Blood (Negative) Urine Nitrate (Negative) Urine Bilirubin (Negative) Urine Urobilinogen (Negative) mg/dL Ur Leukocyte Jessika ase (Negative) 12/25/19 12/25/19 Range/Units 21:12 22:35 WBC (4.0-10.0) 10^3/ uL RBC (4.1-5.3) 10^6/u L Hgb (11.7-16.6) g/dL Hct (42.0-52.0) % MCV (80-94) fL MCH (28.0-34.0) pg MCHC (30.0-36.0) g/dL RDW (12.1-15.1) % Plt Count (130-400) 10^3/c mm MPV (7.4-10.4) fL Neut % (Auto) % Lymph % (Auto) % [place] % (Auto) % Eos % (Auto) % Baso % (Auto) % Neut # (Auto) (1.8-7.7) 10^3/u L Lymph # (Auto) (0.8-4.8) 10^3/u L [place] # (Auto) (0.2-0.9) 10^3/u L Eos # (Auto) (0.0-0.8) 10^3/u L Baso # (Auto) (0.0-0.1) 10^3/u L Nucleated RBC % (a uto) % Nucleated RBCs # /100WBC Sodium (136-145) mmol/L Potassium (3.5-5.1) mmol/L Chloride (98-107) mmol/L Carbon Dioxide (22-29) mmol/L Anion Gap (5-19) BUN (8-23) mg/dL Creatinine (0.7-1.2) mg/dL GFR Calculation Glucose (65-115) mg/dL Calculated Osmolal ity (285-295) mOsm/k g Lactic Acid 3.8 H (0.5-2.2) mmol/L Calcium (8.5-10.5) mg/dL Total Bilirubin (0.15-1.2) mg/dL AST (0-40) U/L ALT (0-41) U/L Alkaline Phosphata se (40-130) IU/L Troponin T Baselin e (0-15) ng/L C-Reactive Protein (0.0-4.9) mg/L Total Protein (6.6-8.7) g/dL Albumin (3.5-5.2) g/dL Globulin (1.3-4.6) g/dL Lipase (13-60) U/L Urine Color Yellow (Yellow) Urine Appearance Clear (CLEAR) Urine pH 5 (5-7) Ur Specific Gravit y 1.015 (1.005-1.030) Urine Protein Neg (Negative) Urine Glucose (UA) Norm (Normal) Urine Ketones Negative (Negative) Urine Blood Neg (Negative) Urine Nitrate Negative (Negative) Urine Bilirubin Neg (Negative) Urine Urobilinogen 4 H (Negative) mg/dL Ur Leukocyte Jessika ase Negative (Negative) Imaging Data^: ct t spine: Attestation: I personally reviewed and interpreted this imaging study as follows: Radiologist's impression: [address] [place] [address] CT Scan Report Signed Patient: Ji Ibarra Unit #: [id number] : 1945 Age/Sex: 74 / M ADM Date: Loc: ER Room/Bed: Attending Dr: Ordering Provider/Ordering MD: Annabel Golden MD Date of Service: 12/25/19 Procedure(s): CT thoracic spin wo con* [id number] Accession Number(s): [id number] Report Number: [id number] PROCEDURE INFORMATION: Exam: CT Thoracic Spine Without Contrast Exam date and time: 12/25/2019 10:46 PM Age: 74 years old Clinical indication: Weakness; Pain in thoracic spine; Prior surgery; Additional info: Pain, leg weakness TECHNIQUE: Imaging protocol: Computed tomography images of the thoracic spine without contrast. Radiation optimization: All CT scans at this facility use at least one of these dose optimization techniques: automated exposure control; mA and/or kV adjustment per patient size (includes targeted exams where dose is matched to clinical indication); or iterative reconstruction. COMPARISON: No relevant prior studies available. RADIATION DOSE METRICS: Total DLP (mGy-cm): 2087.49 FINDINGS: Vertebrae: No fracture is identified. Vertebral alignment is within normal limits. Discs/Spinal canal/Neural foramina: There is central calcification in the T9-T10 disc in keeping with degenerative disc changes. There are prominent anterior bridging osteophytes from T6-T7 through T11-T12. Other bones/joints: Focal lucent abnormality in the posterior left 10th rib is not changed from 12/10/2018. Soft tissues: Unremarkable. Lungs: There are pulmonary opacities seen in the visualized portions of the lungs consistent with clinical history of COVID-[address]/CT thoracic spin wo con* [id number] IMPRESSION: 1. Mild degenerative changes in the thoracic spine. 2. Incidental note is made of pulmonary findings consistent with COVID-19 infection. Discharge Plan Discharge Patient Disposition: Admitted As Inpatient Admit Provider: Khoa Douglas Clinical Impression: Weakness, Hypotension Condition: Stable Referrals: [facility], [Family Provider] - Moni Pardo FNP [Primary Care Provider] - Discharge Date/Time: 12/26/19 02:28 Coding Level of Care Code ED Filter Plant Supervisor for Chg Fwd Exam Comprehensive
[2019-12-25 21:25] LABS: Basophils # 0.1 10^3/uL (0.0-0.1); Basophils % 0.4 %; Eosinophils # 0.2 10^3/uL (0.0-0.8); Eosinophils % 1.1 %; Hematocrit 37.6 % (42.0-52.0); Hemoglobin 12.5 g/dL (11.7-16.6); Lymphocytes # 1.2 10^3/uL (0.8-4.8); Lymphocytes % 8.6 %; Mean Corpuscular HGB Conc 33.2 g/dL (30.0-36.0); Mean Corpuscular Volume 99.2 fL (80-94); Mean Platelet Volume 11.2 fL (7.4-10.4); Monocytes % 6.7 %; Neutrophils # 11.68 10^3/uL (1.8-7.7); Neutrophils % 82.6 %; Nucleated Red Blood Cells % 0 %; Platelet Count 212 10^3/cmm (130-400); Red Blood Count 3.79 10^6/uL (4.1-5.3); Red Cell Distribution Width 14.2 % (12.1-15.1); White Blood Count 14.1 10^3/uL (4.0-10.0)
[2019-12-25] MEDS: sodium chloride 0.9% 1,000 ML 999 ML IV (21:38)
[2019-12-25 21:39] VITALS: BP 111/67; PULSE 99; RESP 22; O2SAT 97
[2019-12-25 21:45] LABS: Lactic Sepsis W/Reflex 3.8 mmol/L (0.5-2.2)
[2019-12-25 21:46] LABS: Alanine Aminotransferase 34 U/L (0-41); Albumin Level 3.5 g/dL (3.5-5.2); Alkaline Phosphatase 112 IU/L (40-130); Anion Gap 21.3 (5-19); Aspartate Amino Transferase 34 U/L (0-40); Blood Urea Nitrogen 19 mg/dL (8-23); Calcium 9.1 mg/dL (8.5-10.5); Carbon Dioxide 19 mmol/L (22-29); Chloride 94 mmol/L (98-107); Globulin 3.3 g/dL (1.3-4.6); Glucose 177 mg/dL (65-115); Lipase 108 U/L (13-60); Osmolality Calculated 277 mOsm/kg (285-295); Potassium 4.3 mmol/L (3.5-5.1); Sodium 130 mmol/L (136-145); Total Bilirubin 0.9 mg/dL (0.15-1.2); Total Protein 6.8 g/dL (6.6-8.7)
[2019-12-25 21:49] LABS: Troponin(5th) Baseline 54 ng/L (0-15)
[2019-12-25 22:06] LABS: C Reactive Protein 11.6 mg/L (0.0-4.9)
[2019-12-25 22:30] VITALS: BP 83/66; PULSE 104; RESP 16; O2SAT 96
--- NOTE | 2019-12-25 22:35 | CTR_ITS ---
PROCEDURE INFORMATION: Exam: CT Thoracic Spine Without Contrast Exam date and time: 12/25/2019 10:46 PM Age: 74 years old Clinical indication: Weakness; Pain in thoracic spine; Prior surgery; Additional info: Pain, leg weakness TECHNIQUE: Imaging protocol: Computed tomography images of the thoracic spine without contrast. Radiation optimization: All CT scans at this facility use at least one of these dose optimization techniques: automated exposure control; mA and/or kV adjustment per patient size (includes targeted exams where dose is matched to clinical indication); or iterative reconstruction. COMPARISON: No relevant prior studies available. RADIATION DOSE METRICS: Total DLP (mGy-cm): 2087.49 FINDINGS: Vertebrae: No fracture is identified. Vertebral alignment is within normal limits. Discs/Spinal canal/Neural foramina: There is central calcification in the T9-T10 disc in keeping with degenerative disc changes. There are prominent anterior bridging osteophytes from T6-T7 through T11-T12. Other bones/joints: Focal lucent abnormality in the posterior left 10th rib is not changed from 12/10/2018. Soft tissues: Unremarkable. Lungs: There are pulmonary opacities seen in the visualized portions of the lungs consistent with clinical history of COVID-[address]/CT thoracic spin wo con* [id number] IMPRESSION: 1. Mild degenerative changes in the thoracic spine. 2. Incidental note is made of pulmonary findings consistent with COVID-19 infection. Radiation Dose CTDIVOL = (mGy): DLP = 2087.49 (mGy-cm)
--- NOTE | 2019-12-25 22:35 | CTR_ITS ---
PROCEDURE INFORMATION: Exam: CT Lumbar Spine Without Contrast Exam date and time: 12/25/2019 10:46 PM Age: 74 years old Clinical indication: Weakness; Low back pain; Prior surgery; Additional info: Pain, leg weakness TECHNIQUE: Imaging protocol: Computed tomography images of the lumbar spine without contrast. Radiation optimization: All CT scans at this facility use at least one of these dose optimization techniques: automated exposure control; mA and/or kV adjustment per patient size (includes targeted exams where dose is matched to clinical indication); or iterative reconstruction. COMPARISON: No relevant prior studies available. RADIATION DOSE METRICS: Total DLP (mGy-cm): 2512.06 FINDINGS: Vertebrae: No fracture is identified. L1-L2: There is minimal degenerative spurring from the anterior endplates. L2-L3: There is degenerative change in the facet joints bilaterally in some hypertrophy of ligamentum flavum which causes [id number] sagittal stenosis narrowing the sagittal diameter of the canal to approximately 7 mm. L3-L4: There is severe narrowing of the L3-L4 disc space with vacuum disc phenomenon. There is approximately 5 mm of retrolisthesis at this level as well as some mild rightward subluxation of L3 on L4 by approximately 7 mm with degenerative change and sclerosis of the endplates which is most severe along their left sides and prominent anterior and left lateral osteophytes. There is diffuse bulging of the disc without focal protrusion and there is bilateral severe foraminal narrowing L4-L5: There is diffuse posterior bulging and protrusion of the disc with possibly some subligamentous protrusion. There are severe degenerative changes in the facet joints bilaterally with medial spur formation. There is no central canal stenosis but there is severe bilateral foraminal narrowing worse on the left than on the right. L5-S1: There is severe decreased height of the disc space with degenerative changes in the adjacent endplates and prominent posterior osteophytes and hypertrophic degenerative changes in the facet joints with medial spur formation. There is no focal disc herniation or central canal stenosis but there is severe bilateral foraminal narrowing. Soft tissues: Unremarkable. CT/CT lumbar spine wo con* [id number] IMPRESSION: 1. No acute fracture or destructive lesion. 2. Severe degenerative changes in the lower lumbar spine as described with multiple areas of foraminal narrowing. 3. 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
[2019-12-25 22:55] LABS: Add Urine Microscopic? NO
[2019-12-25 23:03] LABS: Bilirubin Urine Neg (Negative); Blood Urine Neg (Negative); Glucose Urine UA Norm (Normal); Ketones Urine Negative (Negative); Leukocyte Esterase Urine Negative (Negative); Nitrate Urine Negative (Negative); Protein Urine Neg (Negative); Specific Gravity, Urine 1.015 (1.005-1.030); Urine Appearance Clear (CLEAR); Urine Color Yellow (Yellow); Urobilinogen Urine 4 mg/dL (Negative); pH Urine 5 (5-7)
[2019-12-25 23:10] LABS: Reflex Lactate Order REFLEX LACTIC ORDERD
[2019-12-25 23:30] VITALS: BP 99/60; PULSE 99; RESP 18; O2SAT 99
[2019-12-25] MEDS: sodium chloride 0.9% 500 ML 999 ML IV (23:50)
[2019-12-26] VITALS (11 sets, daily range): BP systolic 91–113; BP diastolic 56–74; PULSE 76–107; RESP 17–28; TEMP 36.5–37.2; O2SAT 94–100
--- NOTE | 2019-12-26 00:29 | PM.HP ---
Providers/Chief Complaint Primary Care Provider: RICARDO Trujillo Chief Complaint: weakness, low bp History of Present Illness Ji Ibarra is a 74 year old male metastatic prostate cancer on chemotherapy (mets to ribs), CKD stage II, type 2 diabetes mellitus, peripheral artery disease with history of revascularization, with recent peripheral angiogram showing Single-vessel runoff to the foot through left anterior tibial artery had proximal 80% highly calcified stenosis it was treated with balloon angioplasty, recently got treated for Covid pneumonia was discharged on 12/14 with instructions to self quarantine and get MRI for his back pain coming in today for generalized weakness and inability to walk. is at the bedside who is endorsing that since his discharge in the hospital he has not been able to get up on his own, so weak that he is not able to use walker anymore, physical therapy has been working with him. He has a bedside commode and that the maximum activity he could do. is also stating that his p.o. intake is poor he does not drink enough fluids. She has not noticed any vomiting, fevers. Patient himself is denying cough, sputum production, nausea, vomiting, diarrhea, dysuria, abdominal pain, blood in stool, urinary and bowel incontinence. Diagnosis in the ER revealed sodium 130, white count 14 sepsis with tachycardia and leukocytosis and high lactic acidemia, he was given vancomycin and Zosyn and sepsis fluid bolus, CT thoracic lumbar region revealed extensive degenerative changes with disc bulging without disc herniation, At the time my evaluation patient is able to lift his legs in the air, no strokelike symptoms, no sensory loss around medial region of his thighs, he is afebrile saturating well on 2 L nasal cannula Review of Systems Const: Reports: body aches, change in appetite, fatigue and malaise; Denies: fever(s) or chills Eyes: Denies: change in vision ENMT: Denies: throat pain Card: Denies: chest pain or swelling of feet/ankles Resp: Denies: dyspnea GI: Denies: abdominal pain, diarrhea or constipation : Denies: flank pain Musc: Reports: muscle cramps and muscle weakness Skin/Breast: Denies: lesions Neuro: Reports: weakness in extremities and difficulty walking; Denies: headache(s) Psych: Denies: anxiety Endo: Denies: polyuria Juan Carlos/Lymph: Denies: easy bruising All/Imm: Denies: urticaria Medications/Allergies Home Medications Medication Instructions Recorded Confirmed Last Taken Type allopurinol 100 mg tablet 100 mg PO DAILY tab 03/15/19 12/09/19 12/09/19 History aspirin 81 mg tablet,delayed 81 mg PO DAILY tab 03/15/19 12/09/19 12/09/19 History release metformin 500 mg tablet 1,000 mg PO BID tab 03/15/19 12/09/19 12/09/19 History metoprolol tartrate 50 mg tablet 50 mg PO BID 03/15/19 12/09/19 Unknown History atorvastatin 20 mg tablet 20 mg PO DAILY #90 tab 10/17/19 12/09/19 12/08/19 Rx pantoprazole [Protonix] 40 mg PO DAILY #30 tab 11/08/19 12/09/19 Unknown Rx ascorbic acid (vitamin C) [Vitamin 500 mg PO BID 30 Days #60 tab 12/14/19 Unknown Rx C] aspirin 325 mg PO DAILY #14 tab 12/14/19 Unknown Rx ferrous gluconate 324 mg PO BIDWM 30 Days #30 tab 12/14/19 Unknown Rx fluticasone propion-salmeterol 1 puff INHALATION BID.RESPIRATORY 12/14/19 Unknown Rx [Advair Diskus] 14 Days #28 each lisinopril 10 mg PO DAILY #0 tab 12/14/19 12/09/19 Unknown Rx methylprednisolone [Medrol (Jhonathan)] See Rx Instructions .ROUTE 12/14/19 Unknown Rx .COMPLEX #21 each tiotropium bromide [Spiriva with 18 mcg INHALATION 12/14/19 Unknown Rx HandiHaler] DAILY.RESPIRATORY 14 Days #14 inh zinc gluconate 50 mg PO DAILY 30 Days #30 tab 12/14/19 Unknown Rx clopidogrel 75 mg tablet 75 mg PO DAILY #30 tab 12/19/19 Unknown Rx Allergies Allergy/AdvReac Type Severity Reaction Status Date / Time No Known Allergies Allergy Verified 12/09/19 17:32 PFSH Acute PFSH: Medical History Benign essential HTN BPH (benign prostatic hyperplasia) Carpal tunnel syndrome CHF (congestive heart failure) 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, glomerular filtration rate (GFR) equal to or greater than 90 mL/min/1.73 square meter and albuminuria creatinine ratio between 30-299 mg/g Claudication in peripheral vascular disease Diabetes 1.5, 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 Peripheral arterial disease with history of revascularization Prostate cancer Surgical History Previous back surgery S/P inguinal hernia repair Family History Father COPD (chronic obstructive pulmonary disease) Social History Smoking and tobacco status: former smoker Alcohol intake: never Household members: spouse Marital status: service: Yes branch: [employer] Current occupational status: retired Current gender identity: Male Melanie/Samaritan: Sikhism of Dat Vitals/I&O/Wt Last Vital Signs Temp 97.7 F 12/25/19 20:26 Pulse 104 H 12/25/19 22:30 Resp 16 12/25/19 22:30 BP 83/66 12/25/19 22:30 Pulse Ox 96 12/25/19 22:30 Weight last 48 hrs Weight 77.111 kg Physical Exam Narrative: EXAM NARRATIVE: Patient is laying comfortably in his bed, elderly frail male, clinically looks dehydrated EOMI, PERRLA S1, S2 sinus tachycardia No active respiratory distress Saturating well on 2 L nasal cannula Bilateral breath sounds without adventitious rhonchi or crackles Abdomen soft nontender bowel sounds present Lower extremity no edema gangrene ulcer Appropriate mood and affect No sensory loss around medial region of his thighs, able to lift his legs in the air without difficulty, No neurological deficit Skin does not show any ulcers Data : 12/25/19 21:12 12/25/19 21:12 A&P Assessment and plan (1) Weakness: Status: Acute (2) Hypotension: Status: Acute (3) Sepsis: Status: Acute (4) Degenerative joint disease (DJD) of lumbar spine: Status: Acute (5) Claudication in peripheral vascular disease: Status: Acute (6) Dehydration: Status: Acute (7) Lactic acidemia: Status: Acute (8) High anion gap metabolic acidosis: Status: Acute Additional A&P Information Generalized weakness There is gradual worsening and physical deconditioning since his angioplasty and SARS COVID-19 pneumonia Does not have neurological deficit, No spinal cord compression signs however has extensive thoracolumbar vertebral osteoarthritis with disc protrusions without significant disc herniation I will check B12 level Physical therapy in the morning MRI of the thoracic and lumbar region Start dexamethasone empirically in case there is cord compression, kindly discontinue after MRI results if it is negative Physical therapy evaluation in the morning Sepsis No source has been identified, afebrile, no headache or meningismus, no signs of ischemic colitis or UTI I do suspect dehydration to be the cause of tachycardia and stress leukocytosis, if he stays hemodynamically stable kindly discontinue antibiotics for now continue vancomycin and Zosyn Initially blood pressure was soft in low 80s and 90s, responded well to fluid resuscitation Considering high inflammatory markers I would repeat Covid antigen test High anion gap acidosis secondary to lactic acidemia Dehydration versus sepsis Responded well to fluid resuscitation Repeat lactic acid Discontinue Metformin Chronic kidney disease: No acute decompensation, Hold lisinopril secondary to hypotension His lisinopril dose was decreased on previous admission from 20 mg to 10 mg. Peripheral vascular disease: No acute decompensation Full code DVT prophylaxis Heparin Consistent carb diet, sliding scale for type 2 diabetes Attestations Medical Necessity Statement*: Secondary to sepsis I am anticipating stay in the hospital course more than 2 midnights currently need IV antibiotic for resuscitation for hypotension and need MRI in the morning to rule out spinal cord compression Time Spent in Patient Care: (>than 50% of time spent in counselling and/or direct pt care on unit). 50 minutes Coding Level of Care Code Acute Security Field Supervisor for Chg Fwd Diagnoses Weakness R53.1 Hypotension I95.9 Sepsis A41.9 Degenerative joint disease (DJD) of lumbar spine M47.816 Claudication in peripheral vascular disease I73.9 Dehydration E86.0 Lactic acidemia E87.2 High anion gap metabolic acidosis E87.2
[2019-12-26] MEDS: piperacillin-tazobactam 3.375 GM in sodium chloride 0.9% (plus) 50 ML IV ×2 (00:34→08:16)
[2019-12-26] MEDS: vancomycin 1,000 MG in sodium chloride 0.9% 250 ML 250 MG IV (00:38)
[2019-12-26] MEDS: sodium chloride 0.9% 1,000 ML 999 ML IV (00:54)
[2019-12-26 01:55] LABS: Lactic Acid level (Lactate) 2.3 mmol/L (0.5-2.2)
[2019-12-26 02:00] LABS: Troponin 5 2HR 41.41 ng/L (0-15)
[2019-12-26 02:11] LABS: SARS Covid-2 Antigen Negative (Negative)
--- NOTE | 2019-12-26 02:58 | ECG_ITS ---
[facility] Test Date: 2019-12-26 Pat Name: Ji Ibarra Department: Room: 252 Gender: Male Shell Fisherman: : 1945 Requested By: Annabel Gamez Order Number: [id number] Wilber MD: Raghav Baker M.D. Measurements Intervals [place] Rate: 100 P: [place]: -1 QRS: -17 QRSD: 111 T: 87 QT: 342 QTc: 443 Interpretive Statements Sinus tachycardia with frequent premature complexes LOW QRS VOLTAGE IN PRECORDIAL LEADS [QRS DEFLECTION < 1.0 mV IN CHEST LEADS] MODERATE INTRAVENTRICULAR CONDUCTION DELAY [110+ ms QRS DURATION] NONSPECIFIC T-WAVE ABNORMALITY ABNORMAL RHYTHM ECG Compared to ECG 12/25/2019 21:08:00 Low QRS voltage now present Intraventricular conduction delay now present T-wave abnormality still present Electronically Signed On 12-26-2019 20:50:24 CDT by Raghav Baker M.D. [id number]
--- NOTE | 2019-12-26 03:04 | PC.PHAR ---
Vancomycin is dosed at 750mg IVPB every 12 hours to produce a predicted trough level of 16.08 (population based pharmacokinetic analysis). A trough level has been ordered from the lab to be collected before the fourth dose to confirm and adjust if needed. The Zosyn is dosed at 3.375gm IVPB every 8 hours; each dose to be infused over 4 hours per extended infusion protocol.
[2019-12-26] MEDS: heparin 5,000 unit/mL INJ 1 mL 5000 UNIT SUBCUT ×3 (03:49→18:44)
[2019-12-26] MEDS: sodium chloride 0.9% 1,000 ML 75 ML IV (03:49)
[2019-12-26 04:57] LABS: Basophils % 0.4 %; Eosinophils # 0.1 10^3/uL (0.0-0.8); Eosinophils % 1.5 %; Hematocrit 28.4 % (42.0-52.0); Hemoglobin 9.3 g/dL (11.7-16.6); Lymphocytes # 0.4 10^3/uL (0.8-4.8); Lymphocytes % 7.5 %; Mean Corpuscular HGB Conc 32.7 g/dL (30.0-36.0); Mean Corpuscular Hemoglobin 33.3 pg (28.0-34.0); Mean Corpuscular Volume 101.8 fL (80-94); Mean Platelet Volume 10.3 fL (7.4-10.4); Monocytes # 0.5 10^3/uL (0.2-0.9); Monocytes % 9.3 %; Neutrophils # 4.32 10^3/uL (1.8-7.7); Neutrophils % 80.7 %; Nucleated Red Blood Cells % 0 %; Platelet Count 117 10^3/cmm (130-400); Red Blood Count 2.79 10^6/uL (4.1-5.3); Red Cell Distribution Width 14.1 % (12.1-15.1); White Blood Count 5.4 10^3/uL (4.0-10.0)
[2019-12-26 05:06] LABS: Lactate (Lactic Acid level) 1.6 mmol/L (0.5-2.2)
[2019-12-26 05:12] LABS: Anion Gap 12.1 (5-19); Blood Urea Nitrogen 19 mg/dL (8-23); Calcium 7.5 mg/dL (8.5-10.5); Carbon Dioxide 22 mmol/L (22-29); Chloride 106 mmol/L (98-107); Glucose 127 mg/dL (65-115); Osmolality Calculated 286 mOsm/kg (285-295); Potassium 4.1 mmol/L (3.5-5.1); Sodium 136 mmol/L (136-145)
[2019-12-26 05:31] LABS: Vitamin B12 152 pg/mL (232-1245)
[2019-12-26 06:41] LABS: Glucose Point of Care 125 mg/dL (70-110)
[2019-12-26] MEDS: pantoprazole DR 40 mg Tablet PO (09:26)
[2019-12-26] MEDS: dexamethasone 4 mg Tablet PO ×2 (09:26→12:08)
[2019-12-26] MEDS: clopidogrel 75 mg Tablet PO (09:26)
[2019-12-26] MEDS: aspirin 81 mg EC Tablet PO (09:26)
[2019-12-26] MEDS: atorvastatin 40 mg Tablet 20 MG PO (09:27)
[2019-12-26] MEDS: allopurinol 100 mg Tablet PO (09:27)
[2019-12-26 09:44] LABS: Sodium 135 mmol/L (136-145)
[2019-12-26] MEDS: pneumococcal (23 valent) SDV 0.5 mL IM (10:55)
[2019-12-26 11:30] LABS: Glucose Point of Care 179 mg/dL (70-110)
[2019-12-26] MEDS: vancomycin 750 MG in sodium chloride 0.9% 250 ML 250 MG IV (12:08)
--- NOTE | 2019-12-26 14:02 | P.PN_ITS ---
Subjective Subjective: Interval history: Planned for MRI this evening, worked with PT this morning, passing urine without issues, last BM 2 days ago, states he is passing minimal flatus. Was able to ambulate with assistance with PT Medications: Reviewed: Yes Vitals/I&O/Wt Last Vital Signs Temp 98.2 F 12/26/19 07:27 Pulse 76 12/26/19 11:32 Resp 18 12/26/19 11:32 BP 96/66 12/26/19 11:32 Pulse Ox 95 12/26/19 11:32 12/25/19 12/26/19 12/26/19 22:59 06:59 14:59 Intake Total 1000 / 1000 1800 / 2800 120 / 120 Output Total 300 / 300 375 / 375 Balance 1000 / 1000 1500 / 2500 -255 / -255 Weight last 48 hrs Weight 77.111 kg Physical Exam Narrative: EXAM NARRATIVE: GEN: Awake, alert and oriented, no acute distress CVS: S1S2 N RS: CTA B/L Abd: Soft, nt/nd , bs+ TRANSPORTATION ASSOCIATE: no focal neuro deficits Data : 12/26/19 04:36 12/26/19 09:05 Micro: Microbiology 12/26/19 00:20 Blood Culture - Preliminary Blood SPECIMEN COLLECTED 12/26/19 00:20 Blood Culture - Preliminary Blood SPECIMEN COLLECTED A&P Assessment and plan (1) Weakness: Status: Acute (2) Hypotension: Status: Acute (3) Sepsis: Status: Acute (4) Degenerative joint disease (DJD) of lumbar spine: Status: Acute (5) Claudication in peripheral vascular disease: Status: Acute (6) Dehydration: Status: Acute (7) Lactic acidemia: Status: Acute (8) High anion gap metabolic acidosis: Status: Acute Additional A&P Information # Generalized weakness There is gradual worsening and physical deconditioning since his angioplasty and SARS COVID-19 pneumonia Does not have neurological deficits at this time, passing urine, has BM Walked with PT today with assistance MRI scheduled for later this afternoon Started dexamethasone empirically in case there is cord compression, will reassess with results fof MRI Physical therapy evaluation in the morning Discontinue abx as there is no source of active infection High anion gap acidosis secondary to lactic acidemia, now resolved Chronic kidney disease: No acute decompensation, Hold lisinopril secondary to hypotension His lisinopril dose was decreased on previous admission from 20 mg to 10 mg. Peripheral vascular disease: No acute decompensation Full code DVT prophylaxis Heparin Consistent carb diet, sliding scale for type 2 diabetes Dispo: IF MRi returns without compression, will plan to send patient home. He already has a neurosurgery appointment set up at [place] on December 30. There are no current respiratory signs or symptoms concerning for Covid pneumonia. He already has home health services set up including home PT. Attestations Medical Necessity Statement*: Pending MRI this evening to evaluate for cord compression. Coding Level of Care Code Acute Aerosol Line Operator for Chg Fwd Diagnoses Weakness R53.1 Hypotension I95.9 Sepsis A41.9 Degenerative joint disease (DJD) of lumbar spine M47.816 Claudication in peripheral vascular disease I73.9 Dehydration E86.0 Lactic acidemia E87.2 High anion gap metabolic acidosis E87.2
--- NOTE | 2019-12-26 16:30 | MR_ITS ---
WS: [id number] MRI LUMBAR SPINE NONCONTRAST HISTORY: Cord compression, patient fell several months ago. COMPARISON: 12/25/2019 CT. TECHNIQUE: Sagittal and axial multisequence imaging is submitted. Advanced degenerative spondylitic changes throughout the majority of the cervical spine. No cord comp ression. Mild RIGHT convex curvature of the lumbar spine. There is mild straightening of the lumbar vertebral bodies. 5 mm retrolisthesis of L3. Severe degenerative disc disease at L3-4 and L5-S1. Moderate at th e remaining levels. No acute vertebral body fractures are identified. Conus terminates normally at L1-2 disc level. L1-L2: Normal. L2-L3: Mild annular disc bulging and facet arthritis. Mild subarticular recess narrowing. L3-L4: Diffuse moderate annular disc bulging and osteophytosis. Central disc protrusion with facet an d ligamentum flavum hypertrophy. There is mild central stenosis with more significant subarticular re cess and foraminal stenosis. Increasing fluid in the facet joints. L4-L5: Marked deformity of the thecal sac at the L4 level due to the scoliosis. Nerve roots are clump ed in the RIGHT lateral thecal sac and there is increase fluid in the facet joints. There is an extru ded disc extending superior from the disc space, best seen on the sagittal projections. Laminectomies are noted posteriorly. Moderate to severe central, subarticular recess and foraminal stenosis. Facet joint cyst on the RIGHT measures 6 mm. L5-S1: Moderate central, subarticular recess and severe bilateral foraminal stenosis. Complete efface ment of fat in the foramen. Mild atherosclerosis of aorta. MR/MR lumbar spine wo con* [id number] IMPRESSION: 1. No definite acute fractures are identified. 2. Severe and advancing degenerative disc disease at L3-4 through L5-S1. 3. Moderate to severe central, subarticular recess and foraminal stenosis L4-5 . Increasing soft tissue posterior to L4 vertebral body and RIGHT foramen. Susp ect extruded disc or disc fragments. 4. Moderate central, bilateral subarticular recess and severe bilateral forami nal stenosis at L5-S1. 5. Moderate to severe bilateral foraminal stenosis at L3-4 with mild central s tenosis. 6. There is increased edema in the soft tissues throughout the lumbar region w hich is probably posttraumatic may be related to the fall. Patient has also had prior surgery and laminectomy defects at the L4-5 level.
--- NOTE | 2019-12-26 16:30 | MR_ITS ---
WS: [id number] MRI THORACIC SPINE noncontrast. HISTORY: cord compression COMPARISON: None available. TECHNIQUE: Multiplanar sequences are performed in sagittal and axial planes. Mild narrowing of the cervical canal at C4-5. Posterior thoracic alignment is normal. No marrow edema or acute fracture. Disc spaces and vertebral body heights are preserved. Signal within the cord is normal without compression. T1-2: Normal. T2-3: Normal. T3-4: Normal. T4-5: Normal. T5-6: Normal. T6-7: Normal. T7-8: Normal. T8-9: Normal. T9-10: Normal. T10-11: Mild bilateral facet joint arthritis and foraminal narrowing. T11-12: Mild bilateral facet joint arthritis and foraminal narrowing. Small amount of fluid in the cervical esophagus is probably from reflux disease. MR/MR thoracic spin wo con* [id number] IMPRESSION: 1. No acute thoracic spine fracture or cord compression. 2. No central or foraminal stenosis.
--- NOTE | 2019-12-26 17:03 | PC.NURSE ---
pt off floor to MRI
[2019-12-26 18:53] LABS: Glucose Point of Care 182 mg/dL (70-110)
--- NOTE | 2019-12-26 18:57 | PC.NURSE ---
pt back to floor and eating now
[2019-12-26 21:51] LABS: Glucose Point of Care 174 mg/dL (70-110)
[2019-12-27] VITALS: BP 102/65; PULSE 91; RESP 20; TEMP 36.7; O2SAT 98
[2019-12-27] MEDS: heparin 5,000 unit/mL INJ 1 mL 5000 UNIT SUBCUT ×2 (03:21→11:49)
[2019-12-27 04:00] VITALS: BP 108/70; PULSE 76; RESP 16; TEMP 36.6; O2SAT 99
[2019-12-27 07:04] LABS: Glucose Point of Care 94 mg/dL (70-110)
[2019-12-27 08:00] VITALS: BP 112/72; PULSE 81; RESP 18; TEMP 36.6; O2SAT 97
[2019-12-27] MEDS: atorvastatin 40 mg Tablet 20 MG PO (08:33)
[2019-12-27] MEDS: clopidogrel 75 mg Tablet PO (08:33)
[2019-12-27] MEDS: pantoprazole DR 40 mg Tablet PO (08:33)
[2019-12-27] MEDS: allopurinol 100 mg Tablet PO (08:33)
[2019-12-27] MEDS: aspirin 81 mg EC Tablet PO (08:33)
[2019-12-27 11:09] LABS: Glucose Point of Care 104 mg/dL (70-110)
[2019-12-27 11:31] VITALS: BP 153/88; PULSE 109; RESP 18; TEMP 36.9; O2SAT 95
[2019-12-27 11:48] VITALS: PULSE 80; O2SAT 95
--- NOTE | 2019-12-27 13:30 | P.DS_ITS ---
Discharge Providers Date of Admission: 12/26/19 00:50 Date of Discharge: December 27, 2019 Attending Provider at Admission: Khoa Douglas MD Attending Provider at Discharge: Cristal Ambrocio MD Primary Care Provider: RICARDO Trujillo Diagnoses at Discharge Discharge Diagnosis (1) Weakness: Status: Acute (2) Hypotension: Status: Acute (3) Sepsis: Status: Acute (4) Degenerative joint disease (DJD) of lumbar spine: Status: Acute (5) Claudication in peripheral vascular disease: Status: Acute (6) Dehydration: Status: Acute (7) Lactic acidemia: Status: Acute (8) High anion gap metabolic acidosis: Status: Acute Reason for Visit Reason for Visit: weakness, low bp Hospital Course Discharge Summary: Patient is a 74-year-old male with a history of metastatic prostate cancer on chemo, CKD stage II, type 2 diabetes, peripheral artery disease with a history of revascularization, recently admitted here for Covid pneumonia between November 30December. He was planned for an outpatient MRI for his back on December 30, however he presented to the ER on December 25 complaining of generalized weakness and inability to walk. It appears this has been more subacute to chronic presentation and appear to be related to neurogenic claudication. Has an appointment with neurosurgery in [place] however is awaiting the results of the MRI prior to seeing the neurosurgeon in person. On December 09, he had been complaining of difficulty walking with his legs feeling like jelly and again on December 25 he states that his weakness is at the point now when he is not able to walk with his walker anymore. He has been getting physical therapy at home. His only been able to use his bedside commode. states he has been having ongoing work-up for this difficulty in walking since earlier this year and has been ruled out for any orthopedic causes for the same. During his stay, he underwent CT of the lumbar and thoracic spine which did not show any acute fractures or destructive lesions. Severe degenerative changes were seen in the lower lumbar spine with multiple areas of foraminal narrowing. Mild to moderate central canal stenosis was seen at L2-L3. Due to concern for possible cord compression, MRI was then performed which did not show any evidence of cauda equina syndrome. MRI lumbar spine showed severe and advancing degenerative disc disease at L3-S1. Moderate to severe central subarticular recess and foraminal stenosis at L4-L5. Moderate central bilateral subarticular recess and severe bilateral foraminal stenosis at L5-S1. Post surgery changes were seen at L4-L5 level. Patient has been able to pass flatus and also passing urine normally. He worked with physical therapy and was prescribed a regimen of home exercises. Initially upon presentation given leukocytosis that was a cause concern for sepsis, however this was likely related to dehydration as it corrected quickly within less than 24 hours. No gross infective focus was evident on physical exam or labs. Blood cultures remain negative to date. Sepsis has therefore been excluded at discharge. He is being discharged today in stable condition with recommendations to follow-up with his neurosurgeon as planned. All radiological discs including his CT and MRI along with the reports have been given to the patient. Physical Exam Narrative: EXAM NARRATIVE: GEN: Awake, alert and oriented, no acute distress CVS: S1S2 N RS: CTA B/L Abd: Soft, nt/nd , bs+ Discharge Data Data Completed and Pending: Completed Studies During Hospitalization Category Date Time Status CT lumbar spine w o con* [id number] Urgen t Cat Scan 12/25/19 22:[address] thoracic spin wo con* [id number] Urge nt Cat Scan 12/25/19 22:35 Completed XR chest 1V emily ble [id number] Stat Exams 12/25/19 20:59 Completed MR lumbar spine w o con* [id number] Routi ne MRI 12/26/19 16:30 Completed MR thoracic spin wo con* [id number] Rout ine MRI 12/26/19 16:30 Completed Pending at discharge Category Date Time Status Blood Culture Sta t Lab 12/25/19 23:56 Results Coronavirus Lab T est PTC Routine Lab 12/26/19 11:12 Received Labs from last 24 hours 12/27/19 12/27/19 12/26/19 11:03 06:43 21:46 POC Glucose 104 94 174 12/26/19 18:35 POC Glucose 182 Vitals: Last Vital Signs Temp 98.4 F 12/27/19 11:31 Pulse 80 12/27/19 11:48 Resp 18 12/27/19 11:31 BP 153/88 12/27/19 11:31 Pulse Ox 95 12/27/19 11:48 Discharge Plan Discharge Patient Disposition: Home Condition: Stable Prescriptions: Continued allopurinol 100 mg tablet 100 mg PO DAILY RF: 0 metformin 500 mg tablet 1,000 mg PO BID RF: 0 metoprolol tartrate 50 mg tablet 50 mg PO BID RF: 0 aspirin [Adult Low Dose Aspirin] 81 mg tablet,delayed release (DR/EC) 81 mg PO DAILY RF: 0 Hold Instructions: Resume on 12/28/19. atorvastatin 20 mg tablet 20 mg PO DAILY Qty: 90 RF: 3 clopidogrel 75 mg tablet 75 mg PO DAILY Qty: 30 RF: 5 pantoprazole [Protonix] 40 mg tablet,delayed release (DR/EC) 40 mg PO DAILY Qty: 30 RF: 0 fluticasone propion-salmeterol [Advair Diskus] 250-50 mcg/dose Blister With Device 1 puff inhalation BID.RESPIRATORY 14 Days Qty: 28 RF: 0 ascorbic acid (vitamin C) [Vitamin C] 500 mg Tablet 500 mg PO BID 30 Days Qty: 60 RF: 0 zinc gluconate 50 mg Tablet 50 mg PO DAILY 30 Days Qty: 30 RF: 0 Spiriva with HandiHaler 18 mcg Capsule, W/Inhalation Device 18 mcg inhalation DAILY.RESPIRATORY 14 Days Qty: 14 RF: 0 ferrous gluconate 324 mg (37.5 mg iron) Tablet 324 mg PO BIDWM 30 Days Qty: 30 RF: 0 lisinopril 20 mg tablet 10 mg PO DAILY Qty: 0 RF: 0 aspirin 325 mg tablet 325 mg PO DAILY Qty: 14 RF: 0 Discharge Orders: Discharge Order (Routine); Ordered 12/27/19 Ordered By: Cristal Ambrocio Referrals: [facility], [Family Provider] - Moni Pardo FNP [Primary Care Provider] - 4-7 days (hospitral discharge follow up, medication reconciliation ) Discharge Diet: Usual diet Discharge Activity: As per PT/OT instructions Discharge Attestations Time Spent in Discharge Care*: greater than 30 min Status at Discharge: Cognitive status at discharge: cognitively intact , Behavioral status at discharge: cooperative , Quality Metrics Clinical Quality Measures During this hospital stay, did patient experience: None Coding Level of Care Code Acute Plug Overwrap Machine Tender for Chg Fwd Diagnoses Weakness R53.1 Hypotension I95.9 Sepsis A41.9 Degenerative joint disease (DJD) of lumbar spine M47.816 Claudication in peripheral vascular disease I73.9 Dehydration E86.0 Lactic acidemia E87.2 High anion gap metabolic acidosis E87.2
[2019-12-27 13:50] VITALS: BP 153/88; PULSE 80; RESP 18; TEMP 36.7; O2SAT 95
[2019-12-27 14:19] LABS: Coronavirus Lab Test PTC Positive
== END 2019-12-27 15:40 | disposition home or self-care (01) | DRG 640 ==
LOC: ER 12-26 00:47 → MEDSURG 12-26 01:51
PROVIDERS: Emergency Medicine; Admitting Provider Internal Medicine; Emergency Provider Emergency Medicine; PCP Nurse Practitioner Family; Visit Provider Student in an Organized Health Care Education/Training Program
DX: E86.0 Dehydration (principal); U07.1 COVID-19; I13.0 Hypertensive heart and chronic kidney disease with heart failure and stage 1 through stage 4 chronic kidney disease, or unspecified chronic kidney disease; I50.30 Unspecified diastolic (congestive) heart failure; C79.51 Secondary malignant neoplasm of bone; I95.9 Hypotension, unspecified; E87.2 Acidosis; R29.818 Other symptoms and signs involving the nervous system; M47.816 Spondylosis without myelopathy or radiculopathy, lumbar region; C61 Malignant neoplasm of prostate; Z79.82 Long term (current) use of aspirin; N18.2 Chronic kidney disease, stage 2 (mild); E11.22 Type 2 diabetes mellitus with diabetic chronic kidney disease; E11.51 Type 2 diabetes mellitus with diabetic peripheral angiopathy without gangrene; Z79.899 Other long term (current) drug therapy; N40.0 Benign prostatic hyperplasia without lower urinary tract symptoms; Z87.891 Personal history of nicotine dependence; Z79.84 Long term (current) use of oral hypoglycemic drugs
CPT/HCPCS: 12345; 36415; 36416; 71045; 72128; 72131; 72146; 72148; 80048; 80053; 81003; 82607; 82962; 83605; 83690; 84295; 84484; 85025; 86140; 87040; 87426; 87635; 90471; 90686; 90732; 93005; 96372; 97110; 97116; 97162; 97530; 99284; J1644; J1815; J2543; J3370; J7030; J7040; J7050; J8540

== ENCOUNTER 2020-01-23 07:27 | Emergency (ER) | payer MEDICARE, SELFPAY ==
[2020-01-23] VITALS (7 sets, daily range): BP systolic 108–143; BP diastolic 80–91; PULSE 86–102; RESP 18–20; TEMP 36.6; O2SAT 93–99; BMI 23.1
--- NOTE | 2020-01-23 07:35 | ECG_ITS ---
Test Date: 2020-01-23 Pat Name: Ji Ibarra Department: Room: Gender: Male Vp Project: : 1945 Requested By: Devang Guardado Order Number: [id number] Wilber MD: Raghav Baker M.D. Measurements Intervals [place] Rate: 98 P: 19 [place]: 160 QRS: -4 QRSD: 95 T: -3 QT: 357 QTc: 456 Interpretive Statements SINUS RHYTHM NONSPECIFIC T-WAVE ABNORMALITY Compared to ECG 12/26/2019 03:11:48 Sinus tachycardia no longer present Intraventricular conduction delay no longer present T-wave abnormality still present Electronically Signed On 01-24-2020 20:07:55 BOND BROKER by Raghav Baker M.D. [id number]
--- NOTE | 2020-01-23 07:35 | XR_ITS ---
WS: [id number] Portable AP upright chest, 01/23/2020 Clinical Data: n/v Comparison: Portable chest, 12/25/2019. Findings: No nodules, masses or effusions are seen. The heart is enlarged. The pulmonary vascularity is not increased. No pneumonia or pneumothorax is seen. The patchy opacities at both lung bases have cleared. The aortic arch and descending aorta are tortuous. There are orthopedic anchors in the right humeral head. XR/XR chest 1V portable [id number] Impression: 1. Clearing of minimal bilateral patchy opacities. 2. Cardiomegaly and atherosclerosis.
--- NOTE | 2020-01-23 07:51 | US_ITS ---
WS: [id number] ULTRASOUND ABDOMEN LIMITED CLINICAL INFORMATION: GB attack COMPARISON: None. FINDINGS: Limited examination due to bowel gas. Liver Size: Normal. Craniocaudal length: 16.0 cm. Echogenicity: Normal. Surface nodularity: None. Mass (size and location): None. Bile ducts Intrahepatic ducts: Normal. Common bile duct diameter: 0.9 cm. Gallbladder Cholelithiasis. Gallstones: Present Gallbladder sludge: None. Gallbladder wall thickening: None. Pericholecystic fluid: None. Sonographic Tai sign: Absent. Pancreas Not well visualized Right kidney: Normal. Hydronephrosis: None. Size: 9.8 cm x 5.1 cm x 5.1 cm. Abdominal aorta and IVC Visualized portions are normal. Ascites: None. US/US gall bladder [id number] IMPRESSION: 1. Limited examination due to bowel gas. 2. Cholelithiasis. No gallbladder wall thickening. No pericholecystic fluid. 3. Prominent common bile duct measuring 9.3 mm. This can be further evaluated with MRCP. 4. No hydronephrosis in right kidney.
--- NOTE | 2020-01-23 08:04 | W.ED.ABDPA2 ---
Documented by User: RICARDO Galo 01/23/20 08:06 HPI - Abdominal Pain General: Chief Complaint: Abdominal Pain Stated Complaint: Stomach Pains/Throwing up/Poss Gallstones Time Seen by Provider: 01/23/20 07:50 History of Present Illness: HPI narrative: Complains about right middle quadrant right upper quadrant since eating a ham and cheese sandwich last night pain is not gone away is actually got worse he has been vomiting some just bile he states says he has a history of a gallstone afraid this might be what it is he said similar to his gallbladder attack in the past also has a history of reflux. Patient is diabetic blood sugars been staying pretty good he says MD elicited complaint: abdominal pain Pertinent past history: gastritis, myocardial infarction and other (Gallstones and GERD) Onset (ago): hour(s) Pain Consistency: constant Location: RUQ Severity: similar to previous episodes Quality: stabbing and aching Radiation: RLQ Exacerbating factors: nothing Relieving factors: nothing Associated Symptoms: Reports nausea and vomiting; Denies chills and fever(s) Review of Systems Const: Denies: fever(s), chills or body aches Eyes: Denies: change in vision or blurry vision ENMT: Denies: throat pain or nasal congestion Card: Denies: chest pain or dyspnea on exertion Resp: Denies: dyspnea, productive cough or non-productive cough GI: Reports: abdominal pain, nausea and vomiting : Denies: difficulty urinating Musc: Denies: extremity pain Skin/Breast: Denies: rash Neuro: Denies: headache(s) Psych: Denies: anxiety or depression Juan Carlos/Lymph: Denies: easy bruising PFSH ED PFSH: Medical History (Updated 01/27/20 @ 13:27 by Pérez López DO) Benign essential HTN BPH (benign prostatic hyperplasia) Carpal tunnel syndrome CHF (congestive heart failure) 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, glomerular filtration rate (GFR) equal to or greater than 90 mL/min/1.73 square meter and albuminuria creatinine ratio between 30-299 mg/g Claudication in peripheral vascular disease Diabetes 1.5, 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 Peripheral arterial disease with history of revascularization Prostate cancer Surgical History Previous back surgery S/P inguinal hernia repair Family History Father COPD (chronic obstructive pulmonary disease) Social History Smoking and tobacco status: former smoker Alcohol intake: never Household members: spouse Marital status: service: Yes branch: [employer] Current occupational status: retired Current gender identity: Male Melanie/Adventism: [employer] of [employer] Physical Exam Const: COMMON NORMALS: no acute distress, average body habitus and patient oriented x3 HENMT: COMMON NORMALS: normocephalic HEAD & SCALP: normal to inspection and normocephalic FACE & SINUS: normal facial exam Eye: COMMON NORMALS: conjunctivae normal GENERAL EYE: appearance normal, both eyes and all related structures CONJUNCTIVA: Yes conjunctivae normal Neck/C-Spine: COMMON NORMALS: no JVD Chest: COMMONS NORMALS: normal inspection of the chest Resp: COMMON NORMALS: normal respiratory effort and clear to auscultation bilaterally AUSCULTATION: clear to auscultation bilaterally Cardio: COMMON NORMALS: no JVD, regular rate and regular rhythm RATE: regular rate RHYTHM: regular rhythm GI: COMMON NORMALS: Normal to inspection, nondistended, normoactive bowel sounds present AUSCULTATION: Yes normoactive bowel sounds PALPATION: Yes Tenderness to palpation present (GI) Details: RUQ PERCUSSION: normal to percussion Extremity: COMMON NORMALS: normal to inspection and full ROM Neuro: COMMON NORMALS: patient oriented x3 Course Vital Signs: Vital signs: Vital Signs Temperature 97.9 F 01/23/20 07:37 Pulse Rate 86 01/23/20 17:42 Respiratory Rate 18 01/23/20 18:54 Blood Pressure 108/80 01/23/20 17:42 Pulse Oximetry 98 01/23/20 18:54 MDM - Abdominal Pain Lab Data: Labs: Lab Results 01/23/20 01/23/20 01/23/20 Range/Units 08:21 08:21 11:03 WBC 13.4 H (4.0-10.0) 10^3/ uL RBC 3.82 L (4.1-5.3) 10^6/u L Hgb 12.7 (11.7-16.6) g/dL Hct 38.5 L (42.0-52.0) % MCV 100.8 H (80-94) fL MCH 33.2 (28.0-34.0) pg MCHC 33.0 (30.0-36.0) g/dL RDW 14.6 (12.1-15.1) % Plt Count 189 (130-400) 10^3/c mm MPV 10.5 H (7.4-10.4) fL Neut % (Auto) 90.3 % Lymph % (Auto) 2.9 % Ashe % (Auto) 5.4 % Eos % (Auto) 0.0 % Baso % (Auto) 0.4 % Neut # (Auto) 12.13 H (1.8-7.7) 10^3/u L Lymph # (Auto) 0.4 L (0.8-4.8) 10^3/u L Ashe # (Auto) 0.7 (0.2-0.9) 10^3/u L Eos # (Auto) 0.0 (0.0-0.8) 10^3/u L Baso # (Auto) 0.1 (0.0-0.1) 10^3/u L Nucleated RBC % (a uto) 0 % Nucleated RBCs # 0.0 /100WBC Sodium 137 (136-145) mmol/L Potassium 3.8 (3.5-5.1) mmol/L Chloride 98 (98-107) mmol/L Carbon Dioxide 23 (22-29) mmol/L Anion Gap 19.8 H (5-19) BUN 13 (8-23) mg/dL Creatinine 0.8 (0.7-1.2) mg/dL GFR Calculation Not Reportable Glucose 309 H (65-115) mg/dL Calculated Osmolal ity 296 H (285-295) mOsm/k g Calcium 8.5 (8.5-10.5) mg/dL Total Bilirubin 0.9 (0.15-1.2) mg/dL AST 42 H (0-40) U/L ALT 66 H (0-41) U/L Alkaline Phosphata se 161 H (40-130) IU/L Total Protein 7.0 (6.6-8.7) g/dL Albumin 3.9 (3.5-5.2) g/dL Globulin 3.1 (1.3-4.6) g/dL Lipase 39 (13-60) U/L Urine Color Yellow (Yellow) Urine Appearance Clear (CLEAR) Urine pH 6 (5-7) Ur Specific Gravit y 1.020 (1.005-1.030) Urine Protein Neg (Negative) Urine Glucose (UA) 4+ H (Normal) Urine Ketones 1+ H (Negative) Urine Blood Neg (Negative) Urine Nitrate Negative (Negative) Urine Bilirubin Neg (Negative) Urine Urobilinogen Neg (Negative) mg/dL Ur Leukocyte Jessika ase Negative (Negative) Discharge Plan Discharge Clinical Impression: Choledocholithiasis, Benign essential HTN, Diabetes 1.5, managed as type 2, CHF (congestive heart failure), Chronic kidney disease (CKD) stage G1/A2, glomerular filtration rate (GFR) equal to or greater than 90 mL/min/1.73 square meter and albuminuria creatinine ratio between 30-299 mg/g Prescriptions: No Action allopurinol 100 mg tablet 100 mg PO DAILY RF: 0 metformin 500 mg tablet 1,000 mg PO BID RF: 0 metoprolol tartrate 50 mg tablet 50 mg PO BID RF: 0 aspirin [Adult Low Dose Aspirin] 81 mg tablet,delayed release (DR/EC) 81 mg PO DAILY RF: 0 Hold Instructions: Resume on 12/28/19. atorvastatin 20 mg tablet 20 mg PO DAILY Qty: 90 RF: 3 clopidogrel 75 mg tablet 75 mg PO DAILY Qty: 30 RF: 5 lisinopril 20 mg tablet 10 mg PO DAILY PRN (Reason: Blood Pressure) RF: 0 Referrals: Moni Pardo FNP [Primary Care Provider] - Sign Out Sign Out Data: Patient Sign Out occurred on 01/23/20 at 09:20. Patient's care was discussed, and care was transferred from to Pérez López DO. Coding Level of Care Code ED Stenographer Secretary for g Fwd Exam Comprehensive Documented by User: Pérez López DO 01/27/20 13:27 HPI - Abdominal Pain General: Chief Complaint: Abdominal Pain Stated Complaint: Stomach Pains/Throwing up/Poss Gallstones Time Seen by Provider: 01/23/20 07:50 PFSH ED PFSH: Medical History (Updated 01/27/20 @ 13:27 by Pérez López DO) Benign essential HTN BPH (benign prostatic hyperplasia) Carpal tunnel syndrome CHF (congestive heart failure) 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, glomerular filtration rate (GFR) equal to or greater than 90 mL/min/1.73 square meter and albuminuria creatinine ratio between 30-299 mg/g Claudication in peripheral vascular disease Diabetes 1.5, 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 Peripheral arterial disease with history of revascularization Prostate cancer Surgical History Previous back surgery S/P inguinal hernia repair Family History Father COPD (chronic obstructive pulmonary disease) Social History Smoking and tobacco status: former smoker Alcohol intake: never Household members: spouse Marital status: service: Yes branch: [employer] Current occupational status: retired Current gender identity: Male Melanie/Adventism: Jewish of [employer] Course Vital Signs: Vital signs: Vital Signs Temperature 97.9 F 01/23/20 07:37 Pulse Rate 86 01/23/20 17:42 Respiratory Rate 18 01/23/20 18:54 Blood Pressure 108/80 01/23/20 17:42 Pulse Oximetry 98 01/23/20 18:54 MDM - Abdominal Pain MDM Narrative: Medical decision making narrative: Patient has a positive MRCP with stones within the common bile duct. The nearest appropriate facility that can accept him is in [place]. All other closer facilities do not have available beds due to the current pandemic. At this point we have no other option patient will have to be transferred [facility] due to bed availability. Lab Data: Labs: Lab Results 01/23/20 01/23/20 01/23/20 Range/Units 08:21 08:21 11:03 WBC 13.4 H (4.0-10.0) 10^3/ uL RBC 3.82 L (4.1-5.3) 10^6/u L Hgb 12.7 (11.7-16.6) g/dL Hct 38.5 L (42.0-52.0) % MCV 100.8 H (80-94) fL MCH 33.2 (28.0-34.0) pg MCHC 33.0 (30.0-36.0) g/dL RDW 14.6 (12.1-15.1) % Plt Count 189 (130-400) 10^3/c mm MPV 10.5 H (7.4-10.4) fL Neut % (Auto) 90.3 % Lymph % (Auto) 2.9 % Ashe % (Auto) 5.4 % Eos % (Auto) 0.0 % Baso % (Auto) 0.4 % Neut # (Auto) 12.13 H (1.8-7.7) 10^3/u L Lymph # (Auto) 0.4 L (0.8-4.8) 10^3/u L Ashe # (Auto) 0.7 (0.2-0.9) 10^3/u L Eos # (Auto) 0.0 (0.0-0.8) 10^3/u L Baso # (Auto) 0.1 (0.0-0.1) 10^3/u L Nucleated RBC % (a uto) 0 % Nucleated RBCs # 0.0 /100WBC Sodium 137 (136-145) mmol/L Potassium 3.8 (3.5-5.1) mmol/L Chloride 98 (98-107) mmol/L Carbon Dioxide 23 (22-29) mmol/L Anion Gap 19.8 H (5-19) BUN 13 (8-23) mg/dL Creatinine 0.8 (0.7-1.2) mg/dL GFR Calculation Not Reportable Glucose 309 H (65-115) mg/dL Calculated Osmolal ity 296 H (285-295) mOsm/k g Calcium 8.5 (8.5-10.5) mg/dL Total Bilirubin 0.9 (0.15-1.2) mg/dL AST 42 H (0-40) U/L ALT 66 H (0-41) U/L Alkaline Phosphata se 161 H (40-130) IU/L Total Protein 7.0 (6.6-8.7) g/dL Albumin 3.9 (3.5-5.2) g/dL Globulin 3.1 (1.3-4.6) g/dL Lipase 39 (13-60) U/L Urine Color Yellow (Yellow) Urine Appearance Clear (CLEAR) Urine pH 6 (5-7) Ur Specific Gravit y 1.020 (1.005-1.030) Urine Protein Neg (Negative) Urine Glucose (UA) 4+ H (Normal) Urine Ketones 1+ H (Negative) Urine Blood Neg (Negative) Urine Nitrate Negative (Negative) Urine Bilirubin Neg (Negative) Urine Urobilinogen Neg (Negative) mg/dL Ur Leukocyte Jessika ase Negative (Negative) Discharge Plan Discharge Clinical Impression: Choledocholithiasis, Benign essential HTN, Diabetes 1.5, managed as type 2, CHF (congestive heart failure), Chronic kidney disease (CKD) stage G1/A2, glomerular filtration rate (GFR) equal to or greater than 90 mL/min/1.73 square meter and albuminuria creatinine ratio between 30-299 mg/g Prescriptions: No Action allopurinol 100 mg tablet 100 mg PO DAILY RF: 0 metformin 500 mg tablet 1,000 mg PO BID RF: 0 metoprolol tartrate 50 mg tablet 50 mg PO BID RF: 0 aspirin [Adult Low Dose Aspirin] 81 mg tablet,delayed release (DR/EC) 81 mg PO DAILY RF: 0 Hold Instructions: Resume on 12/28/19. atorvastatin 20 mg tablet 20 mg PO DAILY Qty: 90 RF: 3 clopidogrel 75 mg tablet 75 mg PO DAILY Qty: 30 RF: 5 lisinopril 20 mg tablet 10 mg PO DAILY PRN (Reason: Blood Pressure) RF: 0 Referrals: Moni Pardo FNP [Primary Care Provider] - Sign Out Sign Out Data: Patient Sign Out occurred on 01/23/20 at 09:20. Patient's care was discussed, and care was transferred from to Pérez López DO. Coding Level of Care Code ED Stenographer Secretary for [facility] Fwd Exam Comprehensive
[2020-01-23] MEDS: ondansetron 2 mg/ML SDV 2 mL 4 MG IVP (08:13)
[2020-01-23] MEDS: sodium chloride 0.9% 1,000 ML 999 ML IV (08:28)
[2020-01-23] MEDS: morphine 4 mg/mL SDV 1 mL IVP ×2 (08:29→09:33)
[2020-01-23 08:31] LABS: Basophils # 0.1 10^3/uL (0.0-0.1); Basophils % 0.4 %; Hematocrit 38.5 % (42.0-52.0); Hemoglobin 12.7 g/dL (11.7-16.6); Lymphocytes # 0.4 10^3/uL (0.8-4.8); Lymphocytes % 2.9 %; Mean Corpuscular Hemoglobin 33.2 pg (28.0-34.0); Mean Corpuscular Volume 100.8 fL (80-94); Mean Platelet Volume 10.5 fL (7.4-10.4); Monocytes # 0.7 10^3/uL (0.2-0.9); Monocytes % 5.4 %; Neutrophils # 12.13 10^3/uL (1.8-7.7); Neutrophils % 90.3 %; Nucleated Red Blood Cells % 0 %; Platelet Count 189 10^3/cmm (130-400); Red Blood Count 3.82 10^6/uL (4.1-5.3); Red Cell Distribution Width 14.6 % (12.1-15.1); White Blood Count 13.4 10^3/uL (4.0-10.0)
[2020-01-23 08:50] LABS: Alanine Aminotransferase 66 U/L (0-41); Albumin Level 3.9 g/dL (3.5-5.2); Alkaline Phosphatase 161 IU/L (40-130); Anion Gap 19.8 (5-19); Aspartate Amino Transferase 42 U/L (0-40); Blood Urea Nitrogen 13 mg/dL (8-23); Calcium 8.5 mg/dL (8.5-10.5); Carbon Dioxide 23 mmol/L (22-29); Chloride 98 mmol/L (98-107); Globulin 3.1 g/dL (1.3-4.6); Glucose 309 mg/dL (65-115); Lipase 39 U/L (13-60); Osmolality Calculated 296 mOsm/kg (285-295); Potassium 3.8 mmol/L (3.5-5.1); Sodium 137 mmol/L (136-145); Total Bilirubin 0.9 mg/dL (0.15-1.2)
[2020-01-23] MEDS: HYDROmorphone 1 mg/mL INJ 1 mL 0.5 MG IVP ×3 (11:06→18:54)
[2020-01-23 11:14] LABS: Add Urine Microscopic? NO
[2020-01-23 11:24] LABS: Bilirubin Urine Neg (Negative); Blood Urine Neg (Negative); Glucose Urine UA 4+ (Normal); Ketones Urine 1+ (Negative); Leukocyte Esterase Urine Negative (Negative); Nitrate Urine Negative (Negative); Protein Urine Neg (Negative); Urine Appearance Clear (CLEAR); Urine Color Yellow (Yellow); Urobilinogen Urine Neg (Negative); pH Urine 6 (5-7)
--- NOTE | 2020-01-23 11:30 | MR_ITS ---
WS: [id number] MRI/MRCP OF THE ABDOMEN WITHOUT GADOLINIUM ENHANCEMENT TECHNIQUE: Thin and thick slab MRCP, Axial T2, Coronal MRCP, Axial Dual Echo, and Axial 2-D Fiesta imaging was obtained. Coronal 2-D Fiesta imaging. CLINICAL INFORMATION: cholelithiasis/dialated CBD COMPARISON: None. FINDINGS: Hydropic distended gallbladder. Extensive cholelithiasis. Innumerable calculi are visualized in the m id and distal common bile duct extending to the pancreatic head. Common bile duct measures 9 mm the p ancreatic head. Mild gallbladder wall thickening. Small amount of right perihepatic fluid. Minimal intrahepatic biliary ductal dilatation. Pancreas is normal in appearance. Normal pancreatic d uct. Splenomegaly measuring 13 cm. Renal cortical atrophy. No hydronephrosis. Adrenal glands are norm al. Normal caliber upper abdominal aorta. MR/MR MRCP [id number] Impression: 1. Hydropic fluid distended gallbladder with extensive cholelithiasis. Gallbla dder measures 14.5 cm [id number] 2. Innumerable calculi within the common bile duct involving the mid and dista l common bile duct extending to the pancreatic head. Common bile duct measures approximately 9 mm. 3. Mild gallbladder wall thickening. 4. Small amount of right perihepatic fluid 5. Bilateral renal cortical atrophy. 6. Mild intrahepatic biliary ductal dilatation. 7. Splenomegaly measuring 13.0 cm [id number]. Notified Pérez López DO at 01/23/2020 1:07 PM.
== END 2020-01-23 18:47 ==
PROVIDERS: Nurse Practitioner Family; Emergency Provider Family Medicine; PCP Nurse Practitioner Family
DX: K80.50 Calculus of bile duct without cholangitis or cholecystitis without obstruction (principal); I13.0 Hypertensive heart and chronic kidney disease with heart failure and stage 1 through stage 4 chronic kidney disease, or unspecified chronic kidney disease; E13.22 Other specified diabetes mellitus with diabetic chronic kidney disease; N18.2 Chronic kidney disease, stage 2 (mild); I50.9 Heart failure, unspecified; Z79.84 Long term (current) use of oral hypoglycemic drugs; Z79.82 Long term (current) use of aspirin; Z79.02 Long term (current) use of antithrombotics/antiplatelets; Z85.46 Personal history of malignant neoplasm of prostate; Z87.891 Personal history of nicotine dependence
CPT/HCPCS: 12345; 71045; 74181; 76705; 80053; 81003; 83690; 85025; 93005; 96361; 96374; 96375; 96376; 99282; 99285; J1170; J2270; J2405; J7030

== ENCOUNTER 2020-02-05 14:40 | Outpatient (CLI) | payer MEDICARE, SELFPAY ==
[2020-02-05 15:38] LABS: Basophils # 0.1 10^3/uL (0.0-0.1); Basophils % 0.5 %; Eosinophils # 0.1 10^3/uL (0.0-0.8); Eosinophils % 0.9 %; Hematocrit 32.5 % (42.0-52.0); Lymphocytes # 0.8 10^3/uL (0.8-4.8); Lymphocytes % 7.3 %; Mean Corpuscular HGB Conc 33.8 g/dL (30.0-36.0); Mean Corpuscular Hemoglobin 32.6 pg (28.0-34.0); Mean Corpuscular Volume 96.4 fL (80-94); Mean Platelet Volume 10.7 fL (7.4-10.4); Monocytes # 0.7 10^3/uL (0.2-0.9); Monocytes % 6.4 %; Neutrophils # 9.34 10^3/uL (1.8-7.7); Nucleated Red Blood Cells % 0 %; Platelet Count 294 10^3/cmm (130-400); Red Blood Count 3.37 10^6/uL (4.1-5.3); Red Cell Distribution Width 14.7 % (12.1-15.1); White Blood Count 11.1 10^3/uL (4.0-10.0)
[2020-02-05 15:43] LABS: Alanine Aminotransferase 15 U/L (0-41); Alkaline Phosphatase 104 IU/L (40-130); Anion Gap 14.3 (5-19); Aspartate Amino Transferase 24 U/L (0-40); Blood Urea Nitrogen 12 mg/dL (8-23); Calcium 7.8 mg/dL (8.5-10.5); Carbon Dioxide 25 mmol/L (22-29); Chloride 102 mmol/L (98-107); Glucose 109 mg/dL (65-115); Osmolality Calculated 286 mOsm/kg (285-295); Potassium 3.3 mmol/L (3.5-5.1); Sodium 138 mmol/L (136-145); Total Bilirubin 0.4 mg/dL (0.15-1.2)
== END 2020-02-05 14:41 | disposition home or self-care (01) ==
PROVIDERS: PCP Nurse Practitioner Family; Visit Provider Nurse Practitioner Family
DX: K80.20 Calculus of gallbladder without cholecystitis without obstruction (principal)
CPT/HCPCS: 80053; 85025

== ENCOUNTER 2020-02-21 09:31 | Outpatient (CLI) | payer MEDICARE, SELFPAY ==
--- NOTE | 2020-02-21 09:42 | MR_ITS ---
WS: [id number] MRI CERVICAL SPINE HISTORY: CERVICAL STENOSIS OF SPINAL CANAL COMPARISON: None available. Straightening of the normal cervical lordosis. 3 mm retrolisthesis of C3 and C4. Moderate degenerativ e disc space narrowing and vertebral body osteophytosis throughout the cervical spine. Most significa nt degenerative disc disease at C3-4 and C4-5. Disc contacts the ventral cervical cord at the C3-4 an d C4-5 levels and also at C6-7. No marrow edema or fractures. Craniocervical junction, C1 and C2 relationship, odontoid process and soft tissues are normal. Cerebr al atrophy and increased CSF surrounding the cerebellum and mild ventriculomegaly. Bilateral ischemic changes in the paula. C2-C3: Diffuse osteophytic ridging. No stenosis. C3-C4: Moderate annular disc bulging and osteophytic ridging. Complete effacement of ventral CSF. Mil d central stenosis and moderate bilateral foraminal stenosis. C4-C5: Diffuse osteophytic ridging and annular disc bulging. Additional central disc protrusion. Comp lete effacement of ventral CSF and mild deformity of the cord. There is at least moderate central and bilateral foraminal stenosis. C5-C6: Diffuse annular disc bulging and osteophytic ridging. Mild central with moderate bilateral for aminal stenosis. C6-C7: Diffuse annular disc bulging. Focal RIGHT paracentral disc protrusion. Mild central stenosis. Moderate LEFT and mild RIGHT foraminal stenosis due to disc osteophyte disease. C7-T1: Normal. Paraspinal soft tissue are normal. MR/MR cervical spin wo con* [id number] IMPRESSION: 1. Moderate to severe multilevel degenerative spondylitic changes in the cervi kameron spine with stenoses. 2. Moderate central and bilateral foraminal stenosis due to combination of dis c and facet disease at C4-5. 3. Moderate bilateral foraminal stenosis at C3-4 and C5-[address] enosis. 4. Moderate LEFT and mild RIGHT foraminal stenosis and mild central stenosis a t C6-7.
--- NOTE | 2020-02-21 09:42 | MR_ITS ---
WS: [id number] MRI BRAIN WITH AND WITHOUT CONTRAST HISTORY: WEAKNESS COMPARISON: None available. TECHNIQUE: Multiplanar imaging performed through the brain with Prohance 13 ml's IV. No acute infarcts are seen. Patel-white matter differentiation is well preserved. Moderate T2 and FLAI R signal hyperintensities from chronic ischemic disease. Prominent perivascular spaces bilaterally ve rsus small lacunar infarcts in the basal ganglia. There is extensive chronic ischemic disease in the paula bilaterally. No susceptibility artifacts or prior lacunar infarcts. Ventricles and extra-axial spaces are normal. Clivus and pituitary gland are normal. Retrocerebellar arachnoid cyst. No inferior displacement of cerebellar tonsils. Postcontrast images are negative for masses or vascular malformations. Dural venous sinuses are normal. Paranasal sinuses: Well aerated with no significant disease. Mastoid air cells: Normal. Calvarium and scalp: Normal. MR/MR head wo/w con [id number] IMPRESSION: 1. No acute infarct or mass. 2. Moderate supratentorial chronic microvascular ischemic disease. 3. Severe microvascular ischemic disease in the paula bilaterally. 4. Mild cerebral and cerebellar atrophy.
== END 2020-02-21 09:32 | disposition home or self-care (01) ==
PROVIDERS: PCP Nurse Practitioner Family; Visit Provider Nurse Practitioner Acute Care
DX: R53.1 Weakness (principal); M48.02 Spinal stenosis, cervical region; I67.82 Cerebral ischemia; G31.9 Degenerative disease of nervous system, unspecified
CPT/HCPCS: 70553; 72141; A9579

== ENCOUNTER 2020-02-25 08:15 | Outpatient (CLI) | payer MEDICARE, SELFPAY ==
--- NOTE | 2020-02-25 08:25 | NM_ITS ---
WS: [id number] AR bone scan whole body* [id number] REASON FOR EXAM: RESTAGING EVALUATION/PROSTATE CANCER TECHNICAL: 24.2 mCi of technetium 99m HDP intravenously. Delayed whole body skeletal imaging. FINDINGS: In comparison to the previous examination of 09/10/2019 the focal abnormality seen in the anterior rig ht sixth rib has resolved. Mild uptake in degenerative changes seen in the cervical spine, both shoulder joints, right thumb, th e left wrist and thumb, and the lumbar spine at L3-L4. There are no new focal abnormalities identified. NM/NM bone scan whole body* [id number] IMPRESSION: Previously identified rib lesion has resolved, likely traumatic. There are no new findings interval metastatic disease.
--- NOTE | 2020-02-25 08:25 | CT_ITS ---
WS: [id number] CT CHEST AND ABDOMEN TECHNIQUE: Contrast-enhanced CT of the chest and abdomen with coronal and sagittal reformatted images . CLINICAL INFORMATION: RESTAGING EVALUATION/PROSTATE CANCER COMPARISON: Multiple prior CTs including December 01, 2019, September 10, 2019, November 2018 and 2017 DLP: 992.[address] scans at [facility] use at least one of these dose optimization techniques: automat ed exposure control; mA and/or kV adjustment per patient size (includes targeted exams where dose is matched to clinical indication); or iterative reconstruction. CT CHEST: Both lungs are well aerated. No acute pulmonary infiltrates. No suspicious pulmonary parenchymal opac ities. No mediastinal or hilar lymphadenopathy. No axillary lymphadenopathy. Vascular calcification including coronary. Normal GE junction. Hypertrop hic changes mid and lower thoracic spine. Stable 9 mm lytic lesion left seventh rib unchanged. CT ABDOMEN: Postoperative changes cholecystectomy are new. Pneumobilia. New bile duct stent with pneumobilia zheng g the bile duct. No evidence of acute pancreatitis. Small amount of fluid in the gallbladder fossa. Hepatomegaly. Diffuse fatty infiltration liver. Portal vein and splenic vein are patent. Mild splenom egaly. Normal GE junction. Adrenal glands are normal. No hydronephrosis. Bilateral renal cortical atr ophy. Normal renal parenchymal enhancement. Nonobstructing calculus lower pole right kidney measuring 8 mm. Normal caliber abdominal aorta. Aortic calcification. No periaortic or retroperitoneal lymphad enopathy. A few prominent peripancreatic lymph nodes are unchanged since September 10, 2019. These are also unchang ed since . Degenerative disc disease lower lumbar spine with vacuum disc phenomenon. Lumbar curve convex right. CT/CT chest abdomen w con* IMPRESSION: 1. No evidence of progressed disease in the chest or abdomen. 2. Stable lytic lesion left ninth rib. 3. No new suspicious pulmonary parenchymal abnormalities. 4. No mediastinal or hilar lymphadenopathy. 5. Stable prominent peripancreatic lymph nodes are unchanged since 2018. 6. Interval cholecystectomy with bile duct stent and pneumobilia. Small amount of fluid in the gallbladder fossa. 7. Stable hepatomegaly and splenomegaly
[2020-02-25] MEDS: iohexol 300 mg/mL 50 mL Btl PO (08:56)
[2020-02-25] MEDS: iohexol 300 mg/mL 100 mL Btl IV (10:03)
== END 2020-02-25 08:16 | disposition home or self-care (01) ==
LOC: RAD 08:21
PROVIDERS: PCP Nurse Practitioner Family; Visit Provider Internal Medicine Hematology & Oncology
DX: Z01.812 Encounter for preprocedural laboratory examination (principal); C61 Malignant neoplasm of prostate; R16.2 Hepatomegaly with splenomegaly, not elsewhere classified; Z90.49 Acquired absence of other specified parts of digestive tract; Z20.828 Contact with and (suspected) exposure to other viral communicable diseases
CPT/HCPCS: 71260; 74160; 78306; 87635; A9561

== ENCOUNTER 2020-03-26 08:39 | Outpatient (CLI) | payer MEDICARE, SELFPAY ==
--- NOTE | 2020-03-27 09:02 | ONC FU_ITS ---
Dr. Colindres follow up note Patient: Ji Ibarra Unit #: [id number]: 1945 Dicatated By: Jorge Colindres M.D.Date of Visit:Mar 26, 2020 Onc Med Follow-up/Prog Note History of Present Illness: Mr. Ji Ibarra, 74-year-old gentleman with a history of mildly elevated PSA since 2013 was on active surveillance and in November 2017 his PSA peaked to 12.4 so on 12/28/2017 he underwent TRUSP/biopsy which showed large volume adenocarcinoma prostate (10 out of 12 cores), right side Manuel score 3+3 ( 60% involvement) and 3+4 (90-100% )involvement, 2 cores of microscopic focus, left side Manuel score 3+4 (15 -100%) involvement and 4+4 (10% involvement)subsequently patient underwent stag with CT scan of abdomen pelvis and bone scan Which showed no evidence of metastatic disease except bone scan showed left posterior 11th rib focal intermediate increased activity whereas CT scan showed left 10th rib lytic lesion, no osteoblastic bone lesion identified and left lung base nodule. Started on ADT on 02/27/2018 with Zoladex/Casodex. Patient start taking Casodex on 02/27/2018, was supposed to get Zoladex too but due to miscommunication and insurance approval he could not get his Zoladex last month , so first dose was given on 03/28/2018 and Casodex was continued for another 2 weeks to prevent Zoladex-induced flare.s/p concurrent radiation therapy. Follow-up bone scan done on 12/10/2018 showed no activity seen at the posterior aspect of left 10th rib compared to prior scan No evidence of metastatic disease CT scan of chest done on 12/10/2018 showed stable lytic lesion in the left 10th rib, previously described 5 mm nodule left lung base is no longer seen Prominent peripancreatic lymph nodes unchanged since CT scan of abdomen pelvis done on 01/24/2018 Discussed with patient regarding his labs white blood count 5.6 hemoglobin 13.7 crit 38 platelets 126,000 CMP within normal limit except glucose 194 creatinine 1.4 and PSA is less than 0.02 tolerating 3 monthly Zoladex well but with expected side effects e.g. occasionally hot flashes and generalized weakness and fatigue. As follow-up bone scan and CT scan of chest and PSA level showed excellent response to the therapy. Follow-up bone scan done on September 10, 2019 showed focal area of uptake in the right sixth rib new from previous done on November 13, 2018. Can be focal healing rib fracture versus less likely metastatic disease. Subtle healing/healed nondisplaced rib fracture at the right fifth and sixth rib unchanged Patient has history of fall about a month ago as he was trying to pull water hose and had a fall sustained injury to right chest, thought he had a fracture as earlier he had pain with deep inhalation which slowly continue to improve. Bone scan done on February 25, 2020 shows previously identified anterior sixth rib lesion has resolved, likely traumatic. There are no new findings suggestive of metastatic disease. CT scan of chest abdomen done on February 25, 2020 showed stable 9 mm lytic lesion left seventh rib unchanged, no evidence of progressive disease in the chest or abdomen no new suspicious pulmonary parenchymal abnormality no central lymphadenopathy stable prominent peripancreatic lymph nodes are unchanged since 2018 Came for follow-up, denies any specific complaint except weakness in lower extremities requiring walker and recently underwent vascular studies and found to have significant lower extremity peripheral vascular disease and now being followed by Dr. Ch vascular surgeon at [place]. 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 And also had episode of near syncopal attack for which he had brain scan done on February 21, 2020 which showed no acute infarct or mass severe microvascular ischemic disease in the [place] bilaterally..Also had CT scan of chest abdomen pelvis as well as bone scan done in February 2020 which showed no evidence of recurrent prostate cancer Medications: Allopurinol 1 Tablet (of 100 mg) Oral daily, Aspirin EC 1 Tablet (of 81 mg) Tablet, enteric coated Oral daily, B-12 1 Tablet (of 1000 mcg) Oral daily, Ferrous Sulfate 1 Tablet (of 325 (65 fe) mg) Oral b.i.d., Lipitor 1 Tablet (of 20 mg) Oral daily, Meloxicam 1 Tablet (of 15 mg) Oral daily, MetFORMIN HCl 1 Tablet (of 1000 mg) Oral b.i.d., Metoprolol Tartrate 1 Tablet (of 25 mg) Oral b.i.d., Plavix 1 Tablet Oral daily Allergies: No Known Allergies. Review of Systems: Constitutional - Appetite is good, weight is stable. Positive for night sweats. Energy Level poor, ENMT - No sinus congestion/drainage. No mouth sores. No sore throat or difficulty swallowing, Hematologic/Lymphatic - No abnormal bruising or bleeding, Respiratory - No cough. Positive for shortness of breath. No pleuritic pain or hemoptysis, Cardiovascular - No angina pain. Positive for palpitations, Gastrointestinal - No nausea or vomiting. No heartburn or acid reflux. No diarrhea, no constipation. No blood in the stool or black stools, Genitourinary (M) - No dysuria or hematuria. Positive for urinary frequency. No urgency or incontinence, Musculoskeletal - No back or joint pain, Neurologic - No headache or dizziness. Positive for numbness in hands and feet, Psychiatric - No anxiety or depression. No insomnia. Vital Signs: Performed on Mar 26, 2020 10:02 Height - 68.00 in Weight - 154.8 lbs (LOW) BSA - 1.83 sq.m BMI - 23.54 Temperature - 94.9 F (LOW) Pulse - 83 /min Respiration - 18 /min BP - 114/68 mm(hg) O2 Sat - 99 % Pain - 0 Performance Status: 2 - Ambulatory/capable of all self-care, unable to perform any work activities. Up and about more than 50% of waking hours. (ECOG) Physical Examination: ENMT - No mouth sores, no thrush, Respiratory - Lungs are clear to auscultation, Cardiovascular - Regular rate and rhythm of heart, Abdomen - Soft, bowel sounds present, Extremities - No visible edema or rash. Lab/Imaging: Most recent lab results are not available for this patient. Impression: Prostatic adenocarcinoma per TRUSP/biopsy done on 12/28/2017 which showed large volume disease e.g. 10 out of 12 cores, right side Manuel score 3+3 (60% involvement) and 3+4 (90-100% involvement) , 2 cores of microscopic focus, left-sided Newport score 3+4 (15 -100% involvement), and 4+4 (10% involvement), 2 cores microscopic focus PSA in November [address] scan of abdomen pelvis done on 01/24/2018 showed pulmonary nodule measures 5 mm at the left lung base and lytic area in the posterior left 10th rib measures 9 mm, no osteoblastic bone lesion identified, mildly enlarged prostate gland next Bone scan done on 01/24/2018 shows left posterior 11th rib focal intermediate increased activity , metastatic disease versus benign lesion with underlying pathological fracture. Type II diabetes mellitus Erectile dysfunction Congestive heart failure next Essential hypertension Started on ADT with Zoladex/Casodex on 02/27/2018. Patient is on Casodex since then, he was supposed to get Zoladex at the same time but due to miscommunication he could not get his dose of Zoladex, so first dose of Zoladex was given on 03/28/2018 and Casodex was continued for 2 more weeks to prevent Zoladex-induced flare And concluded his extended adjuvant ADT in August 2019. Plan was to continue till February 2020 but patient did develop maldonado infection in November 2019 so he missed his 3 monthly appointment for his Zoladex and the later on diagnosed with severe peripheral vascular disease for which she is being managed by Dr. Ch, vascular surgeon at [facility] and with a follow-up CT scan and bone scan done in February 2020 showed no evidence of disease, so was decided to conclude his adjuvant therapy in August 2019. s/p combined ADT and radiation therapy His follow-up bone scan done on 06/21/2018 showed improvement in previous left posterior 10th rib activity since 01/24/2018 this corresponds to a low density left 10th rib lesion seen on CT scan done on 01/24/2018 a metastatic lesion should be considered but this appearance is atypical for history of prostate cancer. No other abnormality seen.Follow-up CT scan of abdomen and bone scan done on February 25, 2020 showed no evidence of disease progression and stable 9 mm lytic lesion in the left seventh rib unchanged Plan: Discussed with patient regarding his CT scan of chest abdomen and bone scan finding which showed no evidence of recurrence of prostate cancer as planned earlier planning was to conclude his extended adjuvant therapy with ADT in February 2020 and it will complete 2 years of ADT. Patient missed his 3 monthly Zoladex in November 2019 because of Covid infection and then he had strokelike condition but CT scan of brain was unremarkable now with severe peripheral vascular disease being evaluated by vascular surgery at [facility]. And is recently done CT scan of chest abdomen and bone scan shows no evidence of disease and considering his overall performance status and other comorbid condition, we will conclude his ADT after his last dose given in August 2019. And rather observe him with repeat PSA every 6-months and evaluate him if there is any new symptoms suggestive of recurrence of disease. Patient and agreed. Due to inconvenience and financial reasons, patient wants to follow his PSA with his PMD at [facility] and in case there is any evidence of progression he will call us, in that case we will see him on as-needed basis.. Signed By: Jorge Colindres M.D. <<Signature on File>>
== END 2020-03-26 08:40 | disposition home or self-care (01) ==
LOC: ONCMED 08:42
PROVIDERS: PCP Nurse Practitioner Family; Visit Provider Internal Medicine Hematology & Oncology
DX: Z08 Encounter for follow-up examination after completed treatment for malignant neoplasm (principal); Z85.46 Personal history of malignant neoplasm of prostate; Z92.23 Personal history of estrogen therapy; Z92.21 Personal history of antineoplastic chemotherapy; Z92.3 Personal history of irradiation
CPT/HCPCS: G0463

== ENCOUNTER 2020-04-20 09:13 | Outpatient (RCR) | payer OTHER, SELFPAY | END 2020-05-10 23:59 | disposition home or self-care (01) | LOC: SPT 09:13 | PROVIDERS: PCP Nurse Practitioner Family; Referring Provider Family Medicine; Visit Provider Family Medicine | DX: I69.90 Unspecified sequelae of unspecified cerebrovascular disease (principal) | CPT/HCPCS: 97110; 97161 ==

== ENCOUNTER 2020-05-11 06:00 | Outpatient (RCR) | payer OTHER, MEDICARE, SELFPAY | END 2020-06-10 23:59 | disposition home or self-care (01) | LOC: SPT 06:00 | PROVIDERS: PCP Nurse Practitioner Family; Referring Provider Family Medicine; Visit Provider Family Medicine | DX: I69.851 Hemiplegia and hemiparesis following other cerebrovascular disease affecting right dominant side (principal) | CPT/HCPCS: 97110; 97112; 97116 ==

== ENCOUNTER 2020-06-11 06:00 | Outpatient (RCR) | payer OTHER, MEDICARE, SELFPAY | END 2020-06-25 15:24 | disposition home or self-care (01) | LOC: SPT 06:00 | PROVIDERS: PCP Nurse Practitioner Family; Referring Provider Family Medicine; Visit Provider Family Medicine | DX: I69.351 Hemiplegia and hemiparesis following cerebral infarction affecting right dominant side (principal) | CPT/HCPCS: 97110; 97116 ==

== ENCOUNTER 2020-07-24 06:00 | Outpatient (RCR) | payer OTHER, SELFPAY | END 2020-08-10 23:59 | disposition home or self-care (01) | LOC: SPT 06:00 | PROVIDERS: PCP Nurse Practitioner Family; Referring Provider Family Medicine; Visit Provider Family Medicine | DX: I69.90 Unspecified sequelae of unspecified cerebrovascular disease (principal) | CPT/HCPCS: 97110; 97161 ==

== ENCOUNTER 2020-08-11 06:00 | Outpatient (RCR) | payer OTHER, SELFPAY | END 2020-09-09 23:59 | disposition home or self-care (01) | LOC: SPT 06:00 | PROVIDERS: PCP Nurse Practitioner Family; Referring Provider Family Medicine; Visit Provider Family Medicine | DX: I69.90 Unspecified sequelae of unspecified cerebrovascular disease (principal) | CPT/HCPCS: 97110 ==

== ENCOUNTER 2020-09-10 06:00 | Outpatient (RCR) | payer OTHER, SELFPAY | END 2020-10-10 23:59 | disposition home or self-care (01) | LOC: SPT 06:00 | PROVIDERS: PCP Nurse Practitioner Family; Referring Provider Family Medicine; Visit Provider Family Medicine | DX: I69.90 Unspecified sequelae of unspecified cerebrovascular disease (principal) | CPT/HCPCS: 97110 ==

== ENCOUNTER 2021-03-30 06:00 | Outpatient (RCR) | payer OTHER, SELFPAY | END 2021-04-12 23:59 | disposition home or self-care (01) | LOC: SPT 06:00 | PROVIDERS: PCP Nurse Practitioner Family; Referring Provider Family Medicine; Visit Provider Family Medicine | DX: I69.993 Ataxia following unspecified cerebrovascular disease (principal) | CPT/HCPCS: 97110; 97161 ==

== ENCOUNTER 2021-04-13 06:00 | Outpatient (RCR) | payer OTHER, SELFPAY | END 2021-05-10 23:59 | disposition home or self-care (01) | LOC: SPT 06:00 | PROVIDERS: PCP Nurse Practitioner Family; Visit Provider Family Medicine | DX: I69.993 Ataxia following unspecified cerebrovascular disease (principal) | CPT/HCPCS: 97110; 97116 ==

== ENCOUNTER 2021-05-11 06:00 | Outpatient (RCR) | payer OTHER, SELFPAY | END 2021-06-10 23:59 | disposition home or self-care (01) | LOC: SPT 06:00 | PROVIDERS: PCP Nurse Practitioner Family; Visit Provider Family Medicine | DX: I69.993 Ataxia following unspecified cerebrovascular disease (principal) | CPT/HCPCS: 97110; 97116 ==

== ENCOUNTER → 2021-07-06 09:33 | Outpatient (BNVA) | payer OTHER, SELFPAY | PROVIDERS: PCP Nurse Practitioner Family; Visit Provider Internal Medicine Cardiovascular Disease | DX: I48.91 Unspecified atrial fibrillation (principal); I44.0 Atrioventricular block, first degree; I47.1 Supraventricular tachycardia | CPT/HCPCS: 93246 ==

== ENCOUNTER → 2021-07-23 09:30 | Outpatient (BNVA) | payer OTHER, SELFPAY | PROVIDERS: PCP Nurse Practitioner Family; Visit Provider Internal Medicine Cardiovascular Disease | DX: I73.9 Peripheral vascular disease, unspecified (principal); Z98.890 Other specified postprocedural states; I13.0 Hypertensive heart and chronic kidney disease with heart failure and stage 1 through stage 4 chronic kidney disease, or unspecified chronic kidney disease; E13.22 Other specified diabetes mellitus with diabetic chronic kidney disease; N18.1 Chronic kidney disease, stage 1; I50.9 Heart failure, unspecified; Z79.84 Long term (current) use of oral hypoglycemic drugs; Z87.891 Personal history of nicotine dependence | CPT/HCPCS: 99213; 99214 ==

== ENCOUNTER 2022-09-23 16:18 | Outpatient (CLI) | payer OTHER, SELFPAY ==
--- NOTE | 2022-09-23 | USR_ITS ---
PROCEDURE INFORMATION: Exam: US Duplex Lower Extremity Veins, Bilateral Exam date and time: 09/23/2022 5:10 PM Age: 76 years old Clinical indication: Condition or disease; Other: Had dvt in unkown leg at beggin of 2022; Additional info: S/P dvt TECHNIQUE: Imaging protocol: Real-time duplex ultrasound of the bilateral extremities with 2-D harp scale, color Doppler flow and spectral waveform analysis including responses to compression and other maneuvers (when performed) with image documentation. Complete exam focused on the lower extremity veins. COMPARISON: NM bone scan whole body* [id number] 02/25/2020 10:24 AM FINDINGS: Right deep veins: Unremarkable. The common femoral, femoral, proximal profunda femoral, popliteal, posterior tibial and peroneal veins are patent without thrombus. Normal Doppler waveforms. Normal compressibility and/or augmentation response. Right superficial veins: Saphenofemoral junction is patent without thrombus. Left deep veins: Unremarkable. The common femoral, femoral, proximal profunda femoral, popliteal, posterior tibial and peroneal veins are patent without thrombus. Normal Doppler waveforms. Normal compressibility and/or augmentation response. Left superficial veins: Saphenofemoral junction is patent without thrombus. Soft tissues: Unremarkable. US/[place] [id number] IMPRESSION: No sonographic evidence of deep vein thrombosis.
== END 2022-09-23 16:19 | disposition home or self-care (01) ==
LOC: RAD 16:21
PROVIDERS: PCP Nurse Practitioner Family; Visit Provider Family Medicine
DX: Z01.89 Encounter for other specified special examinations (principal); Z86.718 Personal history of other venous thrombosis and embolism
CPT/HCPCS: 93970

== ENCOUNTER 2022-11-03 11:07 | Outpatient (CLI) | payer OTHER, SELFPAY ==
--- NOTE | 2022-11-03 11:23 | MM_ITS ---
WS: [id number] BILATERAL 3D TOMOSYNTHESIS DIGITAL DIAGNOSTIC MAMMOGRAPHY WITH CAD CLINICAL INFORMATION: LT BR HISTORY: LEFT breast pain COMPARISON: None. TECHNIQUE: Bilateral CC, MLO, and ML views. FINDINGS: Scattered fibroglandular densities bilaterally. Palpable marker LEFT nipple. Underlying fibroglandula r tissue slightly more prominent compared to the RIGHT. No focal lesions visualized. Ultrasound is pe nding and will be described below. No other suspicious abnormalities. ULTRASOUND BREAST LEFT TECHNIQUE: Ultrasound left breast focused area of concern. CLINICAL INFORMATION: LT BR FINDINGS: Ultrasound LEFT breast at the areola. RIGHT for comparison. Ultrasound LEFT breast areola demonstrate s normal underlying parenchymal tissue. No cystic or solid lesions. No suspicious lesions to target f or biopsy. Normal comparison RIGHT breast. IMPRESSION: MM/[place] [id number] BI-RADS: 2-Benign FOLLOW UP: See Report
== END 2022-11-03 11:08 | disposition home or self-care (01) ==
PROVIDERS: PCP Nurse Practitioner Family; Visit Provider Family Medicine
DX: N64.4 Mastodynia (principal)
CPT/HCPCS: 76642; 77062; G0279

== ENCOUNTER 2023-03-01 09:26 | Outpatient (RCR) | payer OTHER, SELFPAY | END 2023-03-12 23:59 | disposition home or self-care (01) | LOC: SPT 09:26 | PROVIDERS: PCP Family Medicine; Visit Provider Family Medicine | DX: M62.81 Muscle weakness (generalized) (principal) | CPT/HCPCS: 97110; 97161 ==

== ENCOUNTER 2023-03-13 06:00 | Outpatient (RCR) | payer OTHER, SELFPAY | END 2023-04-12 23:59 | disposition home or self-care (01) | LOC: SPT 06:00 | PROVIDERS: PCP Family Medicine; Visit Provider Family Medicine | DX: M62.81 Muscle weakness (generalized) (principal) | CPT/HCPCS: 97110; 97530 ==

== ENCOUNTER 2023-03-23 12:25 | Emergency (ER) | payer OTHER, SELFPAY ==
[2023-03-23 12:28] VITALS: BP 124/72; PULSE 76; RESP 16; TEMP 36.8; O2SAT 99; BMI 25.5
--- NOTE | 2023-03-23 13:29 | ED_ITS ---
HPI - Recheck/Abnormal Lab/Rx 2 General: Chief Complaint: Recheck/Abnormal Lab/Rx Stated Complaint: elevated bp Time Seen by Provider: 03/23/23 13:14 History of Present Illness: 77-year-old male patient comes in today for concerns of hypotension. Patient had finished with his physical therapy and became lightheaded and it was noted that his blood pressure had dropped to 70 systolic. Patient had recently been restarted on lisinopril at 20 mg a day. Patient reports no new or abnormal symptoms. Review of Systems 2 General: Reports: 10 or more systems reviewed and unremarkable except in HPI and below Const: Denies: body aches Card: Denies: chest pain Resp: Denies: dyspnea Musc: Denies: neck pain or back pain Neuro: Denies: headache(s) PFSH ED 2 PFSH: Medical History (Updated 03/23/23 @ 14:29 by RICARDO Escalante) Claudication in peripheral vascular disease Peripheral arterial disease with history of revascularization Chronic kidney disease (CKD) stage G1/A2, glomerular filtration rate (GFR) equal to or greater than 90 mL/min/1.73 square meter and albuminuria creatinine ratio between 30-299 mg/g CHF (congestive heart failure) 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, managed as type 2 Erectile disorder due to medical condition in male Benign essential HTN BPH (benign prostatic hyperplasia) Carpal tunnel syndrome Prostate cancer Surgical History S/P inguinal hernia repair Previous back surgery Family History Father COPD (chronic obstructive pulmonary disease) Social History Smoking and tobacco/nicotine status: former use of tobacco/nicotine Alcohol intake: never Substance/Drug Use: never Household members: spouse Marital status: service: Yes branch: [employer] Current occupational status: retired Current gender identity: Male Melanie/Restorationism: Orthodoxy of Dat Physical Exam 2 Const: COMMON NORMALS: alert HENMT: COMMON NORMALS: normocephalic HEAD & SCALP: normocephalic Neck/C-Spine: COMMON NORMALS: no meningeal signs Resp: COMMON NORMALS: normal respiratory effort and clear to auscultation bilaterally AUSCULTATION: clear to auscultation bilaterally Cardio: COMMON NORMALS: regular rate and regular rhythm RATE: regular rate RHYTHM: regular rhythm GI: COMMON NORMALS: Soft to palpation and non-tender PALPATION: Yes Soft to palpation : COMMON NORMALS: Yes no CVA tenderness BLADDER/KIDNEY EXAM: Yes no CVA tenderness Back/Pelvis: COMMON NORMALS: no CVA tenderness Extremity: COMMON NORMALS: capillary refill normal Neuro: SENSORIUM/ORIENTATION: Yes alert MENINGEAL SIGNS: Yes no meningeal signs Skin: COMMON NORMALS: turgor normal GENERAL SKIN EXAM: turgor normal Course 2 Vital Signs: Vital signs: Vital Signs Temperature 98.2 F 03/23/23 12:28 Pulse Rate 76 03/23/23 12:28 Respiratory Rate 16 03/23/23 12:28 Blood Pressure 124/72 03/23/23 12:28 Pulse Oximetry 99 03/23/23 12:28 Oxygen Delivery Me thod Room Air 03/23/23 12:28 MDM - Recheck/Abnormal Lab/Rx Medical Decision Making 77-year-old male patient comes in today for complaints of low blood pressure. Patient was recently and started on some lisinopril at 20 mg/day for correction of high blood pressure. On exam patient appears nontoxic. Respirations and lungs are clear to auscultation. Abdomen soft nontender. Vital signs are normal. Differential diagnosis includes not limited to adverse drug effect, dehydration, urinary tract infection, arrhythmia. EKG was normal. CBC was unremarkable. CMP did note a bump in patient's creatinine at 1.4. I reviewed this with patient's who notes that patient's last creatinine was also little elevated. I suggested that he may have a drink plenty of fluids and make sure he is getting a least 2 L a day unless otherwise directed. I also recommended decreasing lisinopril from 20 to 10 mg/day and monitoring blood pressure. Patient's spouse reported understanding and will follow-up with primary care. Lab Data 03/23/23 14:00 03/23/23 14:00 Laboratory Results WBC 6.65 10^3/uL (3.29-11.43) 03/23/23 14:00 RBC 3.32 10^6/uL (3.85-5.65) L 03/23/23 14:00 Hgb 11.50 g/dL (11.27-16.99) 03/23/23 14:00 Hct 33.5 % (37-53) L 03/23/23 14:00 MCV 100.9 fl (82-101) 03/23/23 14:00 MCH 34.6 pg (27-33) H 03/23/23 14:00 MCHC 34.3 g/dL (30-55) 03/23/23 14:00 RDW 13.9 % (12.1-15.1) 03/23/23 14:00 Plt Count 129 10^3/cmm (157-399) L 03/23/23 14:00 MPV 11.0 fL (7.4-10.4) H 03/23/23 14:00 Neut % (Auto) 71.1 % 03/23/23 14:00 Lymph % (Auto) 18.6 % 03/23/23 14:00 Robertson % (Auto) 7.7 % 03/23/23 14:00 Eos % (Auto) 1.8 % 03/23/23 14:00 Baso % (Auto) 0.5 % 03/23/23 14:00 Neut # (Auto) 4.73 10^3/uL (1.8-7.7) 03/23/23 14:00 Lymph # (Auto) 1.2 10^3/uL (0.8-4.8) 03/23/23 14:00 Robertson # (Auto) 0.5 10^3/uL (0.2-0.9) 03/23/23 14:00 Eos # (Auto) 0.1 10^3/uL (0.0-0.8) 03/23/23 14:00 Baso # (Auto) 0.0 10^3/uL (0.0-0.1) 03/23/23 14:00 Nucleated RBC % (auto) 0 % 03/23/23 14:00 Nucleated RBCs # 0.0 /100WBC 03/23/23 14:00 Sodium 138 mmol/L (136-145) 03/23/23 14:00 Potassium 4.7 mmol/L (3.5-5.1) 03/23/23 14:00 Chloride 104 mmol/L (98-107) 03/23/23 14:00 Carbon Dioxide 22 mmol/L (22-29) 03/23/23 14:00 Anion Gap 16.7 (5-19) 03/23/23 14:00 BUN 37 mg/dL (8-23) H 03/23/23 14:00 Creatinine 1.4 mg/dL (0.7-1.2) H 03/23/23 14:00 GFR Calculation Not Reportable 03/23/23 14:00 Glucose 155 mg/dL (65-115) H 03/23/23 14:00 Calculated Osmolality 298 mOsm/kg (285-295) H 03/23/23 14:00 Calcium 8.8 mg/dL (8.5-10.5) 03/23/23 14:00 Total Bilirubin 0.7 mg/dL (0.15-1.2) 03/23/23 14:00 AST 20 U/L (0-40) 03/23/23 14:00 ALT 17 U/L (0-41) 03/23/23 14:00 Alkaline Phosphatase 85 U/L (40-130) 03/23/23 14:00 Total Protein 6.8 g/dL (6.6-8.7) 03/23/23 14:00 Albumin 3.9 g/dL (3.5-5.2) 03/23/23 14:00 Globulin 2.9 g/dL (1.3-4.6) 03/23/23 14:00 Urine Color Yellow (Yellow) 03/23/23 14:25 Urine Appearance Clear (CLEAR) 03/23/23 14:25 Urine pH 5 (5-7) 03/23/23 14:25 Ur Specific Montgomery 1.020 (1.005-1.030) 03/23/23 14:25 Urine Protein Neg (Negative) 03/23/23 14:25 Urine Glucose (UA) Norm (Normal) 03/23/23 14:25 Urine Ketones Negative (Negative) 03/23/23 14:25 Urine Blood Neg (Negative) 03/23/23 14:25 Urine Nitrate Negative (Negative) 03/23/23 14:25 Urine Bilirubin Neg (Negative) 03/23/23 14:25 Urine Urobilinogen 1 mg/dL (Negative) H 03/23/23 14:25 Ur Leukocyte Esterase Negative (Negative) 03/23/23 14:25 No radiology studies performed this visit EKG Data EKG 1: I personally reviewed and interpreted this EKG as follows: EKG interpretation date: 03/23/23 EKG interpretation time: 14:18 Prior EKG tracings: not available for review Interpretation: EKG shows sinus rhythm at [address] elevation or ectopy is noted. No prior exam was available for comparison. Computer generated interpretation: Sinus rhythm, normal EKG, unconfirmed report. Discharge Plan Discharge Patient Disposition: Home Clinical Impression: Adverse effect of drug or medicament Qualifiers: Encounter type: initial encounter Qualified Code(s): T50.905A - Adverse effect of unspecified drugs, medicaments and biological substances, initial encounter Condition: Stable Prescriptions: No Action allopurinol 100 mg tablet 100 mg PO QAM aspirin [Adult Low Dose Aspirin] 81 mg tablet,delayed release (DR/EC) 81 mg PO QAM Hold Instructions: Resume on 12/28/19. cholecalciferol (vitamin D3) 125 mcg (5,000 unit) capsule 125 mcg PO DAILY PreserVision AREDS [id number] [id number]-lb-[id number] capsule 1 cap PO BID cyanocobalamin (vitamin B-12) 1,000 mcg capsule 1,000 mcg PO DAILY lisinopril 20 mg tablet 20 mg PO DAILY latanoprost 0.005 % drops 1 drp ophthalmic (eye) BEDTIME Rx Instructions: BOTH EYES paroxetine HCl 10 mg tablet 10 mg PO DAILY meloxicam 15 mg tablet 15 mg PO DAILY timolol maleate 0.25 % drops 1 drp ophthalmic (eye) QAM Rx Instructions: left eye metformin 1,000 mg tablet 1,000 mg PO BID metoprolol succinate 25 mg tablet extended release 24 hr 25 mg PO DAILY rosuvastatin 20 mg tablet 20 mg PO QPM Discharge Orders: Discharge ED (Routine); Ordered 03/23/23 Ordered By: Jake Lang Referrals: Tory Joseph MD [Primary Care Provider] - Discharge Diet: Usual diet Discharge Activity: Increase activity as tolerated Patient Instructions: Hypotension (ED) Activity Restrictions/Additional Instructions: Home and rest. Activity as tolerated. Decrease lisinopril to 1/2 tablet daily and monitor blood pressure. Give the second half in the evening if blood pressure is high before bedtime. Follow-up with primary care for further instructions. Return to ED for new concerns. Coding Level of Care Code ED Manager Process Excellence for Chg Fwd
--- NOTE | 2023-03-23 13:47 | ECG_ITS ---
[facility] Test Date: 2023-03-23 Pat Name: Ji Ibarra Department: Room: Gender: Male Cook Cold Meat: : 1945 Requested By: Jake Mendes Order Number: [id number] Wilber MD: Meredith Howe M.D. Measurements Intervals [place] Rate: 66 P: 89 NH: 206 QRS: -4 QRSD: 81 T: 36 QT: 370 QTc: 389 Interpretive Statements SINUS RHYTHM Compared to ECG 01/23/2020 08:01:26 T-wave abnormality no longer present Electronically Signed On 03-23-2023 21:49:35 AVIATION MAINTENANCE INSTRUCTOR by Meredith Howe M.D. [email or web address] In :60 [id number]
--- NOTE | 2023-03-23 14:08 | PC.PHAR ---
PTS' STATES PT HAS NEWER METOPROLOL SUCC. 25MG ER AND HAS 2 NEWER EYE DROPS, DIRECTIONS VERIFIED WITH KEKE. 03/23/23
[2023-03-23 14:12] LABS: Basophils % 0.5 %; Eosinophils # 0.1 10^3/uL (0.0-0.8); Eosinophils % 1.8 %; Hematocrit 33.5 % (37-53); Lymphocytes # 1.2 10^3/uL (0.8-4.8); Lymphocytes % 18.6 %; Mean Corpuscular HGB Conc 34.3 g/dL (30-55); Mean Corpuscular Hemoglobin 34.6 pg (27-33); Mean Corpuscular Volume 100.9 fl (82-101); Monocytes # 0.5 10^3/uL (0.2-0.9); Monocytes % 7.7 %; Neutrophils # 4.73 10^3/uL (1.8-7.7); Neutrophils % 71.1 %; Nucleated Red Blood Cells % 0 %; Platelet Count 129 10^3/cmm (157-399); Red Blood Count 3.32 10^6/uL (3.85-5.65); Red Cell Distribution Width 13.9 % (12.1-15.1); White Blood Count 6.65 10^3/uL (3.29-11.43)
[2023-03-23 14:28] LABS: Alanine Aminotransferase 17 U/L (0-41); Albumin Level 3.9 g/dL (3.5-5.2); Alkaline Phosphatase 85 U/L (40-130); Anion Gap 16.7 (5-19); Aspartate Amino Transferase 20 U/L (0-40); Blood Urea Nitrogen 37 mg/dL (8-23); Calcium 8.8 mg/dL (8.5-10.5); Carbon Dioxide 22 mmol/L (22-29); Chloride 104 mmol/L (98-107); Globulin 2.9 g/dL (1.3-4.6); Glucose 155 mg/dL (65-115); Osmolality Calculated 298 mOsm/kg (285-295); Potassium 4.7 mmol/L (3.5-5.1); Sodium 138 mmol/L (136-145); Total Bilirubin 0.7 mg/dL (0.15-1.2); Total Protein 6.8 g/dL (6.6-8.7)
[2023-03-23 14:40] LABS: Add Urine Microscopic? NO; Charge for UA Resulting for Rev
[2023-03-23 14:51] LABS: Bilirubin Urine Neg (Negative); Blood Urine Neg (Negative); Glucose Urine UA Norm (Normal); Ketones Urine Negative (Negative); Leukocyte Esterase Urine Negative (Negative); Nitrate Urine Negative (Negative); Protein Urine Neg (Negative); Urine Appearance Clear (CLEAR); Urine Color Yellow (Yellow); Urobilinogen Urine 1 mg/dL (Negative); pH Urine 5 (5-7)
[2023-03-23 15:17] VITALS: BP 144/80; PULSE 69; O2SAT 100
== END 2023-03-23 15:00 | disposition home or self-care (01) ==
PROVIDERS: Emergency Provider Nurse Practitioner Family; PCP Family Medicine
DX: I95.2 Hypotension due to drugs (principal); T46.4X5A Adverse effect of angiotensin-converting-enzyme inhibitors, initial encounter; E11.22 Type 2 diabetes mellitus with diabetic chronic kidney disease; I13.0 Hypertensive heart and chronic kidney disease with heart failure and stage 1 through stage 4 chronic kidney disease, or unspecified chronic kidney disease; N18.9 Chronic kidney disease, unspecified; I50.9 Heart failure, unspecified; Z85.46 Personal history of malignant neoplasm of prostate; Z87.891 Personal history of nicotine dependence
CPT/HCPCS: 36415; 80053; 81003; 85025; 93005; 99284

== ENCOUNTER 2023-04-04 12:39 | Emergency (ER) | payer OTHER, SELFPAY ==
[2023-04-04 12:43] VITALS: BP 155/93; PULSE 99; RESP 14; TEMP 36.7; O2SAT 97; BMI 25.1
[2023-04-04 13:52] LABS: Basophils % 0.2 %; Eosinophils # 0.3 10^3/uL (0.0-0.8); Eosinophils % 4.1 %; Hematocrit 35.4 % (37-53); Lymphocytes # 1.2 10^3/uL (0.8-4.8); Lymphocytes % 14.2 %; Mean Corpuscular HGB Conc 33.3 g/dL (30-55); Mean Corpuscular Hemoglobin 34.2 pg (27-33); Mean Corpuscular Volume 102.6 fl (82-101); Monocytes # 0.7 10^3/uL (0.2-0.9); Monocytes % 8.5 %; Neutrophils # 5.86 10^3/uL (1.8-7.7); Neutrophils % 72.6 %; Nucleated Red Blood Cells % 0 %; Platelet Count 137 10^3/cmm (157-399); Red Blood Count 3.45 10^6/uL (3.85-5.65); Red Cell Distribution Width 14.3 % (12.1-15.1); White Blood Count 8.08 10^3/uL (3.29-11.43)
[2023-04-04 14:08] LABS: Alanine Aminotransferase 20 U/L (0-41); Albumin Level 3.9 g/dL (3.5-5.2); Alkaline Phosphatase 104 U/L (40-130); Anion Gap 16.7 (5-19); Aspartate Amino Transferase 23 U/L (0-40); Blood Urea Nitrogen 33 mg/dL (8-23); Calcium 9.4 mg/dL (8.5-10.5); Carbon Dioxide 23 mmol/L (22-29); Chloride 103 mmol/L (98-107); Globulin 3.3 g/dL (1.3-4.6); Glucose 203 mg/dL (65-115); Lipase 59 U/L (13-60); Osmolality Calculated 299 mOsm/kg (285-295); Potassium 4.7 mmol/L (3.5-5.1); Sodium 138 mmol/L (136-145); Total Bilirubin 0.8 mg/dL (0.15-1.2); Total Protein 7.2 g/dL (6.6-8.7)
--- NOTE | 2023-04-04 15:59 | CTR_ITS ---
PROCEDURE INFORMATION: Exam: CT Abdomen And Pelvis With Contrast Exam date and time: 04/04/2023 5:10 PM Age: 77 years old Clinical indication: Abdominal pain; Localized; Right lower quadrant (rlq); Prior surgery; Surgery date: 6+ months; Surgery type: Hernia; Additional info: Rlq pain TECHNIQUE: Imaging protocol: Computed tomography of the abdomen and pelvis with contrast. Sagittal and coronal reformatted images were created and reviewed. Radiation optimization: All CT scans at this facility use at least one of these dose optimization techniques: automated exposure control; mA and/or kV adjustment per patient size (includes targeted exams where dose is matched to clinical indication); or iterative reconstruction. Contrast material: OMNI 350; Contrast volume: 100 ml; Contrast route: INTRAVENOUS (IV); COMPARISON: CT chest abd w con*[id number] 02/25/2020 9:54 AM RADIATION DOSE METRICS: Total DLP (mGy-cm): 602 FINDINGS: Pleural spaces: No pleural effusion. No pneumothorax. Heart: Stable mild enlargement of the visualized portions of the heart. Coronary arteries: Stable moderate atherosclerotic calcification in the visualized coronary arteries. Liver: Stable calcified granuloma in the liver. Gallbladder and bile ducts: Stable findings consistent with a previous cholecystectomy. Dilatation of the biliary ducts, not unexpected in a patient who has had a prior cholecystectomy. Pancreas: The pancreas is unremarkable. No pancreatic ductal dilatation. Spleen: Stable calcified granuloma in the spleen. Adrenal glands: The right and left adrenal glands are unremarkable. Kidneys and ureters: Stable non-obstructing stone in the right kidney measuring 7.3 mm (series 3, image 43). Stable mild bilateral renal atrophy. The right and left ureters are unremarkable. Stomach and bowel: Increased fecal content in the colon. Numerous diverticula in the descending colon and sigmoid colon. No evidence for diverticulitis. No acute abnormality in the small bowel. No acute abnormality in the stomach. Appendix: The appendix is visualized and is unremarkable. No findings to suggest acute appendicitis. Intraperitoneal space: No free intraperitoneal air. No ascites. No loculated fluid collections to suggest an abscess. Vasculature: Moderate to severe atherosclerotic changes in the visualized arteries. No evidence for aortic aneurysm or aortic dissection. Hepatic veins, portal veins, splenic vein, and SMV are patent. Lymph nodes: Calcified lymph nodes in the left hilum. No lymphadenopathy. Urinary bladder: Diffuse, moderate bladder wall thickening. Reproductive: The prostate gland is moderately enlarged. Calcifications in the vas deferens. Bones/joints: The patient has had prior fusion from L2 through the bilateral sacroiliac joints with L4 and L5 laminectomies. No evidence for loosening of the surgical hardware. Multilevel degenerative changes of varying severity in the visualized spine. Soft tissues: There is mild enlargement of the right iliopsoas muscle with adjacent mild inflammation. Inflammatory changes are also seen around the vessels in common femoral vessels in the right groin. CT/CT abdomen pelvis w con* [id number] IMPRESSION: 1. There is mild enlargement of the right iliopsoas muscle with adjacent mild inflammation. Inflammatory changes are also seen around the vessels in common femoral vessels in the right groin. Etiology is uncertain. Findings could suggest myositis or could possibly represent an intramuscular hematoma and adjacent mild hemorrhage in the right groin. Recommend clinical correlation. 2. Diffuse, moderate bladder wall thickening. In the correct clinical setting, this may suggest cystitis. Recommend correlation with laboratory findings. Alternatively, this may be secondary to chronic outlet obstruction. 3. Stable findings consistent with a previous cholecystectomy. Dilatation of the biliary ducts, not unexpected in a patient who has had a prior cholecystectomy. Interval removal of the biliary stent with resolution of pneumobilia. 4. Stable nonobstructing right renal stone. 5. Calcifications in the vas deferens. Findings raise suspicion for diabetes mellitus. Recommend clinical correlation. 6. Increased fecal content in the colon. 7. Descending colon and sigmoid colon diverticulosis. No evidence for diverticulitis. 8. The patient has had prior fusion from L2 through the bilateral sacroiliac joints with L4 and L5 laminectomies. No evidence for loosening of the surgical hardware. 9. Incidental/nonacute findings are listed in the report.
--- NOTE | 2023-04-04 16:11 | W.ED.ABDPA2 ---
HPI - Abdominal Pain General: Chief Complaint: Abdominal Pain Stated Complaint: pain in groin area Time Seen by Provider: 04/04/23 15:30 Source: patient Mode of arrival: ambulatory History of Present Illness: 77-year-old male states he has right flank pain he states it felt a past and that he had a history of hernia do not palpate any strangulated hernia at this time. He states pain is currently a 3 out of 10 to be worse with movement denies any testicle pain. Denies any injuries. Associated Symptoms: Denies chills, diarrhea, fever(s), nausea and vomiting Review of Systems Const: Denies: fever(s), chills, body aches or change in appetite ENMT: Denies: throat pain or dental pain Card: Denies: chest pain Resp: Denies: dyspnea GI: Reports: abdominal pain; Denies: nausea, vomiting or diarrhea : Reports: flank pain Musc: Denies: neck pain or back pain Skin/Breast: Denies: rash Neuro: Denies: headache(s) PFSH ED PFSH: Medical History (Updated 04/04/23 @ 18:54 by Aleyda Moctezuma MD) Claudication in peripheral vascular disease Peripheral arterial disease with history of revascularization Chronic kidney disease (CKD) stage G1/A2, glomerular filtration rate (GFR) equal to or greater than 90 mL/min/1.73 square meter and albuminuria creatinine ratio between 30-299 mg/g CHF (congestive heart failure) 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, managed as type 2 Erectile disorder due to medical condition in male Benign essential HTN BPH (benign prostatic hyperplasia) Carpal tunnel syndrome Prostate cancer Surgical History S/P inguinal hernia repair Previous back surgery Family History Father COPD (chronic obstructive pulmonary disease) Social History Smoking and tobacco/nicotine status: former use of tobacco/nicotine Alcohol intake: never Substance/Drug Use: never Household members: spouse Marital status: service: Yes branch: [employer] Current occupational status: retired Current gender identity: Male Melanie/Anglican: [employer] Physical Exam Const: COMMON NORMALS: no acute distress, patient oriented x3 and healthy appearing HENMT: COMMON NORMALS: normocephalic and atraumatic HEAD & SCALP: normocephalic and atraumatic Eye: COMMON NORMALS: Equal, round and reactive pupils present and EOMs intact bilaterally PUPIL: Yes Equal, round and reactive pupils present Neck/C-Spine: COMMON NORMALS: full ROM and supple Chest: COMMONS NORMALS: normal inspection of the chest and normal palpation of entire chest wall Resp: COMMON NORMALS: normal respiratory effort Cardio: COMMON NORMALS: regular rate, regular rhythm and No murmurs present (Cardio) RATE: regular rate RHYTHM: regular rhythm GI: OTHER: Tenderness in right groin no hernia noted Extremity: COMMON NORMALS: normal to inspection and full ROM Neuro: COMMON NORMALS: patient oriented x3, moves all extremities and no focal motor deficits Psych: COMMON NORMALS: mental status grossly normal, Normal thought process present and cooperative THOUGHT PROCESS: Normal thought process present Skin: COMMON NORMALS: no rashes or lesions noted and no wounds GENERAL SKIN EXAM: no rashes or lesions noted Course Vital Signs: Vital signs: Vital Signs Temperature 98.1 F 04/04/23 12:43 Pulse Rate 74 04/04/23 19:11 Respiratory Rate 18 04/04/23 16:58 Blood Pressure 113/69 04/04/23 19:11 Pulse Oximetry 98 04/04/23 19:11 Oxygen Delivery Me thod Room Air 04/04/23 12:43 MDM - Abdominal Pain Medical Decision Making Patient presents here with abdominal and flank pain CT does show possible myositis his white count is normal his hemoglobin is normal no signs of bleeding no signs of severe infection he is on meloxicam we will add hydrocodone his abdominal exam here is benign he is to follow-up with PCP and return if worsening he understands agrees to plan Medical Records I reviewed the patient's medical records. Lab Data I reviewed the patient's lab results. 04/04/23 13:47 04/04/23 13:47 Labs/Radiology: Radiology Impressions Abdomen/Pelvis CT 04/04/23 15:59 IMPRESSION: 1. There is mild enlargement of the right iliopsoas muscle with adjacent mild inflammation. Inflammatory changes are also seen around the vessels in common femoral vessels in the right groin. Etiology is uncertain. Findings could suggest myositis or could possibly represent an intramuscular hematoma and adjacent mild hemorrhage in the right groin. Recommend clinical correlation. 2. Diffuse, moderate bladder wall thickening. In the correct clinical setting, this may suggest cystitis. Recommend correlation with laboratory findings. Alternatively, this may be secondary to chronic outlet obstruction. 3. Stable findings consistent with a previous cholecystectomy. Dilatation of the biliary ducts, not unexpected in a patient who has had a prior cholecystectomy. Interval removal of the biliary stent with resolution of pneumobilia. 4. Stable nonobstructing right renal stone. 5. Calcifications in the vas deferens. Findings raise suspicion for diabetes mellitus. Recommend clinical correlation. 6. Increased fecal content in the colon. 7. Descending colon and sigmoid colon diverticulosis. No evidence for diverticulitis. 8. The patient has had prior fusion from L2 through the bilateral sacroiliac joints with L4 and L5 laminectomies. No evidence for loosening of the surgical hardware. 9. Incidental/nonacute findings are listed in the report. 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 Laboratory Results WBC 8.08 10^3/uL (3.29-11.43) 04/04/23 13:47 RBC 3.45 10^6/uL (3.85-5.65) L 04/04/23 13:47 Hgb 11.80 g/dL (11.27-16.99) 04/04/23 13:47 Hct 35.4 % (37-53) L 04/04/23 13:47 MCV 102.6 fl (82-101) H 04/04/23 13:47 MCH 34.2 pg (27-33) H 04/04/23 13:47 MCHC 33.3 g/dL (30-55) 04/04/23 13:47 RDW 14.3 % (12.1-15.1) 04/04/23 13:47 Plt Count 137 10^3/cmm (157-399) L 04/04/23 13:47 MPV 11.0 fL (7.4-10.4) H 04/04/23 13:47 Neut % (Auto) 72.6 % 04/04/23 13:47 Lymph % (Auto) 14.2 % 04/04/23 13:47 [place] % (Auto) 8.5 % 04/04/23 13:47 Eos % (Auto) 4.1 % 04/04/23 13:47 Baso % (Auto) 0.2 % 04/04/23 13:47 Neut # (Auto) 5.86 10^3/uL (1.8-7.7) 04/04/23 13:47 Lymph # (Auto) 1.2 10^3/uL (0.8-4.8) 04/04/23 13:47 [place] # (Auto) 0.7 10^3/uL (0.2-0.9) 04/04/23 13:47 Eos # (Auto) 0.3 10^3/uL (0.0-0.8) 04/04/23 13:47 Baso # (Auto) 0.0 10^3/uL (0.0-0.1) 04/04/23 13:47 Nucleated RBC % (auto) 0 % 04/04/23 13:47 Nucleated RBCs # 0.0 /100WBC 04/04/23 13:47 Sodium 138 mmol/L (136-145) 04/04/23 13:47 Potassium 4.7 mmol/L (3.5-5.1) 04/04/23 13:47 Chloride 103 mmol/L (98-107) 04/04/23 13:47 Carbon Dioxide 23 mmol/L (22-29) 04/04/23 13:47 Anion Gap 16.7 (5-19) 04/04/23 13:47 BUN 33 mg/dL (8-23) H 04/04/23 13:47 Creatinine 1.5 mg/dL (0.7-1.2) H 04/04/23 13:47 GFR Calculation Not Reportable 04/04/23 13:47 Glucose 203 mg/dL (65-115) H 04/04/23 13:47 Calculated Osmolality 299 mOsm/kg (285-295) H 04/04/23 13:47 Calcium 9.4 mg/dL (8.5-10.5) 04/04/23 13:47 Total Bilirubin 0.8 mg/dL (0.15-1.2) 04/04/23 13:47 AST 23 U/L (0-40) 04/04/23 13:47 ALT 20 U/L (0-41) 04/04/23 13:47 Alkaline Phosphatase 104 U/L (40-130) 04/04/23 13:47 Total Protein 7.2 g/dL (6.6-8.7) 04/04/23 13:47 Albumin 3.9 g/dL (3.5-5.2) 04/04/23 13:47 Globulin 3.3 g/dL (1.3-4.6) 04/04/23 13:47 Lipase 59 U/L (13-60) 04/04/23 13:47 Urine Color Yellow (Yellow) 04/04/23 18:01 Urine Appearance Clear (CLEAR) 04/04/23 18:01 Urine pH 5 (5-7) 04/04/23 18:01 Ur Specific [place] 1.020 (1.005-1.030) 04/04/23 18:01 Urine Protein Trace (Negative) 04/04/23 18:01 Urine Glucose (UA) Trace (Normal) H 04/04/23 18:01 Urine Ketones 1+ (Negative) H 04/04/23 18:01 Urine Blood Neg (Negative) 04/04/23 18:01 Urine Nitrate Negative (Negative) 04/04/23 18:01 Urine Bilirubin Neg (Negative) 04/04/23 18:01 Urine Urobilinogen Norm mg/dL (Negative) 04/04/23 18:01 Ur Leukocyte Esterase Negative (Negative) 04/04/23 18:01 Urine RBC 0-4 /hpf (0-2) H 04/04/23 18:01 Urine WBC 0-4 /hpf (0-5) H 04/04/23 18:01 Ur Squamous Epith Cells 0-4 /hpf (0-5) H 04/04/23 18:01 Amorphous Sediment Not Reportable 04/04/23 18:01 Urine Bacteria None /hpf (NONE) 04/04/23 18:01 Urine Mucus Trace /hpf 04/04/23 18:01 All radiology interpretation(s) finalized by discharge Discharge Plan Discharge Patient Disposition: Home Clinical Impression: Abdominal pain Condition: Stable Prescriptions: New hydrocodone-acetaminophen 5-325 mg tablet 1 tab PO Q6H PRN (Reason: pain) Qty: 14 0RF No Action allopurinol 100 mg tablet 100 mg PO QAM aspirin [Adult Low Dose Aspirin] 81 mg tablet,delayed release (DR/EC) 81 mg PO QAM Hold Instructions: Resume on 12/28/19. cholecalciferol (vitamin D3) 125 mcg (5,000 unit) capsule 125 mcg PO DAILY PreserVision AREDS 14,320-226-200 [id number] capsule 1 cap PO BID cyanocobalamin (vitamin B-12) 1,000 mcg capsule 1,000 mcg PO DAILY lisinopril 20 mg tablet 10 mg PO DAILY latanoprost 0.005 % drops 1 drp ophthalmic (eye) BEDTIME Rx Instructions: BOTH EYES paroxetine HCl 10 mg tablet 10 mg PO DAILY meloxicam 15 mg tablet 15 mg PO DAILY metformin 1,000 mg tablet 1,000 mg PO BID metoprolol succinate 25 mg tablet extended release 24 hr 25 mg PO DAILY rosuvastatin 20 mg tablet 20 mg PO QPM timolol maleate 0.5 % drops 1 drp ophthalmic (eye) QAM Discharge Orders: Discharge ED (Routine); Ordered 04/04/23 Ordered By: Aleyda Moctezuma Referrals: Tory Joseph MD [Primary Care Provider] - 1-3 days Discharge Diet: Advance as tolerated Discharge Activity: Resume usual activity Patient Instructions: Abdominal Pain (ED), Opioid Safety Coding Level of Care Code ED Rehabilitation Specialist for [facility] [place]
[2023-04-04] MEDS: ondansetron 2 mg/ML SDV 2 mL 4 MG IVP (16:55)
[2023-04-04 16:58] VITALS: RESP 18; O2SAT 95
[2023-04-04] MEDS: morphine 4 mg/mL SDV 1 mL IVP (16:58)
[2023-04-04] MEDS: iohexol 350 mg/mL 500 mL Btl (per mL) IV (17:14)
[2023-04-04 17:16] VITALS: BP 163/95; O2SAT 95
[2023-04-04 18:10] VITALS: BP 122/88; PULSE 82; O2SAT 96
[2023-04-04 18:36] LABS: Glucose Urine UA Trace (Normal); Protein Urine Trace (Negative); Urine Appearance Clear (CLEAR); Urine Color Yellow (Yellow); pH Urine 5 (5-7)
[2023-04-04 18:37] LABS: Add Urine Microscopic? YES; Bilirubin Urine Neg (Negative); Blood Urine Neg (Negative); Ketones Urine 1+ (Negative); Leukocyte Esterase Urine Negative (Negative); Nitrate Urine Negative (Negative); Urobilinogen Urine Norm (Negative)
[2023-04-04 18:48] LABS: Add Urine Culture? No; Mucus Urine TRACE /hpf; RBC Urine 0-4 /hpf (0-2); Squamous Epithelial Cell Urine 0-4 /hpf (0-5); WBC Urine 0-4 /hpf (0-5)
[2023-04-04 19:11] VITALS: BP 113/69; PULSE 74; O2SAT 98
== END 2023-04-04 19:12 | disposition home or self-care (01) ==
PROVIDERS: Emergency Provider Emergency Medicine; PCP Family Medicine
DX: R10.31 Right lower quadrant pain (principal); Z79.82 Long term (current) use of aspirin; Z79.84 Long term (current) use of oral hypoglycemic drugs; E11.22 Type 2 diabetes mellitus with diabetic chronic kidney disease; I13.0 Hypertensive heart and chronic kidney disease with heart failure and stage 1 through stage 4 chronic kidney disease, or unspecified chronic kidney disease; N18.9 Chronic kidney disease, unspecified; I50.9 Heart failure, unspecified; Z85.46 Personal history of malignant neoplasm of prostate; Z87.891 Personal history of nicotine dependence
CPT/HCPCS: 36415; 74177; 80053; 81001; 83690; 85025; 96374; 96375; 99285; J2270; J2405; Q9967

== ENCOUNTER 2023-04-13 06:00 | Outpatient (RCR) | payer OTHER, SELFPAY | END 2023-05-11 23:59 | disposition home or self-care (01) | LOC: SPT 06:00 | PROVIDERS: PCP Family Medicine; Visit Provider Family Medicine | DX: M62.81 Muscle weakness (generalized) (principal) | CPT/HCPCS: 97110; 97530 ==

== ENCOUNTER → 2023-05-05 10:24 | Outpatient (BNVA) | payer OTHER, SELFPAY | PROVIDERS: PCP Family Medicine; Visit Provider Podiatrist Foot & Ankle Surgery | DX: L60.3 Nail dystrophy (principal); E11.42 Type 2 diabetes mellitus with diabetic polyneuropathy; L84 Corns and callosities; M20.11 Hallux valgus (acquired), right foot; Z79.84 Long term (current) use of oral hypoglycemic drugs | CPT/HCPCS: 11721; 99203 ==

== ENCOUNTER 2023-05-12 06:00 | Outpatient (RCR) | payer OTHER, SELFPAY | END 2023-06-11 23:59 | disposition home or self-care (01) | LOC: SPT 06:00 | PROVIDERS: PCP Family Medicine; Visit Provider Family Medicine | DX: M62.81 Muscle weakness (generalized) (principal) | CPT/HCPCS: 97110 ==

== ENCOUNTER 2023-05-29 20:00 | Outpatient (CLI) | payer OTHER, SELFPAY | END 2023-05-29 20:01 | disposition home or self-care (01) | LOC: SLEEP 05-30 03:31 | PROVIDERS: PCP Family Medicine; Visit Provider Family Medicine | DX: G47.33 Obstructive sleep apnea (adult) (pediatric) (principal) | CPT/HCPCS: 95811 ==

== ENCOUNTER 2023-06-12 06:00 | Outpatient (RCR) | payer OTHER, SELFPAY | END 2023-07-11 23:59 | disposition home or self-care (01) | LOC: SPT 06:00 | PROVIDERS: PCP Family Medicine; Visit Provider Family Medicine | DX: M62.81 Muscle weakness (generalized) (principal) | CPT/HCPCS: 97110 ==

== ENCOUNTER 2023-07-04 10:53 | Emergency (ER) | payer OTHER, SELFPAY ==
[2023-07-04 11:10] VITALS: BP 172/105; PULSE 44; RESP 16; TEMP 36.7; O2SAT 97
--- NOTE | 2023-07-04 11:19 | W.ED.BACK ---
HPI - Back Pain/Injury General: Chief Complaint: Back Pain/Injury Stated Complaint: R side pain Time Seen by Provider: 07/04/23 11:04 History of Present Illness: 77-year-old man with a history of chronic low back pain, hypertension and diabetes who presents to the emergency room with right-sided low back pain. Says this started after changing vehicles and also going to ball games and sitting on rafters. Hurts with movement turning and rolling over.. He has quite a bit of weakness at baseline after having back surgery a few years back. He uses a walker at home and has to have help transferring no change in his weakness. No saddle numbness, no urinary retention or incontinence, no focal motor deficit, no sensory deficit. no recent fever. no cough. no shortness of breath. no chest pain. no abdominal pain. no nausea or vomiting. no dysuria. no altered mental status. no edema. Review of Systems Narrative: Constitutional symptoms: Negative except as documented in HPI. Skin symptoms: Negative except as documented in HPI. Eye symptoms: Negative except as documented in HPI. ENMT symptoms: Negative except as documented in HPI. Respiratory symptoms: Negative except as documented in HPI. Cardiovascular symptoms: Negative except as documented in HPI. Gastrointestinal symptoms: Negative except as documented in HPI. Genitourinary symptoms: Negative except as documented in HPI. Musculoskeletal symptoms: Negative except as documented in HPI. Neurologic symptoms: Negative except as documented in HPI. Psychiatric symptoms: Negative except as documented in HPI. Endocrine symptoms: Negative except as documented in HPI. 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, managed as type 2 Erectile disorder due to medical condition in male Benign essential HTN BPH (benign prostatic hyperplasia) Carpal tunnel syndrome Prostate cancer Surgical History S/P inguinal hernia repair Previous back surgery Family History Father COPD (chronic obstructive pulmonary disease) Social History Smoking and tobacco/nicotine status: former use of tobacco/nicotine Alcohol intake: never Substance/Drug Use: never Household members: spouse Marital status: service: Yes branch: [employer] Current occupational status: retired Current gender identity: Male Melanie/Nondenominational: [employer] Physical Exam Narrative: EXAM NARRATIVE: General: Alert, no acute distress. Head: Normocephalic Neck: Trachea midline Eye: Extraocular movements are intact. Ears, nose, mouth and throat: Oral mucosa moist Respiratory: Respirations are non-labored Musculoskeletal: Normal ROM Back: no step off, no focal tenderness, some paraspinal muscle tenderness Neurological: Alert and oriented to person, place, time, and situation, No focal neurological deficit observed. Psychiatric: Cooperative, appropriate mood & affect. Course Vital Signs: Vital signs: Vital Signs Temperature 98.0 F 07/04/23 11:10 Pulse Rate 44 L 07/04/23 11:10 Respiratory Rate 16 07/04/23 11:10 Blood Pressure 172/105 07/04/23 11:10 Pulse Oximetry 97 07/04/23 11:10 MDM - Back Pain/Injury Medical Decision Making Patient has musculoskeletal back pain. We will treat as such. No imaging today. He had no trauma. No radiology studies performed this visit Other Data Assessment and plan: -decadron in er - Discharged home - Discussed plan with patient. Answered any questions. - Evaluation and treatment of this problem were appropriate in the emergency setting. Discharge Plan Discharge Patient Disposition: Home Clinical Impression: Low back strain Condition: Stable Prescriptions: New cyclobenzaprine 10 mg tablet 10 mg PO Q8H Qty: 20 0RF dexamethasone 6 mg tablet 6 mg PO DAILY 5 Days Qty: 5 0RF diclofenac sodium 50 mg tablet,delayed release (DR/EC) 50 mg PO Q12H Qty: 20 0RF No Action allopurinol 100 mg tablet 100 mg PO QAM aspirin [Adult Low Dose Aspirin] 81 mg tablet,delayed release (DR/EC) 81 mg PO QAM Hold Instructions: Resume on 12/28/19. cholecalciferol (vitamin D3) 125 mcg (5,000 unit) capsule 125 mcg PO DAILY PreserVision AREDS 14,[id number] capsule 1 cap PO BID cyanocobalamin (vitamin B-12) 1,000 mcg capsule 1,000 mcg PO DAILY (DME) Diabetic Shoes with 3 set of molded insoles See Rx Instructions .Route .MEDSUPPLY Qty: 1 0RF Rx Instructions: [facility] latanoprost 0.005 % drops 1 drp ophthalmic (eye) BEDTIME Rx Instructions: BOTH EYES paroxetine HCl 10 mg tablet 10 mg PO DAILY meloxicam 15 mg tablet 15 mg PO DAILY metformin 1,000 mg tablet 1,000 mg PO BID metoprolol succinate 25 mg tablet extended release 24 hr 25 mg PO DAILY rosuvastatin 20 mg tablet 20 mg PO QPM ropinirole 1 mg tablet 1 mg PO DAILY lisinopril 10 mg tablet 10 mg PO DAILY timolol maleate 0.5 % drops 1 drp ophthalmic (eye) QAM hydrocodone-acetaminophen 5-325 mg tablet 1 tab PO Q6H PRN (Reason: pain) Qty: 14 0RF Discharge Orders: Discharge ED (Routine); Ordered 07/04/23 Ordered By: Kay Santiago Referrals: Tory Joseph MD [Primary Care Provider] - (You have been screened and evaluated and felt safe for discharge. Health conditions do change or evolve sometimes and as such it is important that you follow up with your Primary Doctor to be re checked, 3-5 days is a general good time frame for follow up. You are always welcome to return to the ED for re assessment if your symptoms are worsening or you have new concerns) Discharge Diet: Usual diet Discharge Activity: Increase activity as tolerated Patient Instructions: Back Pain (ED) Coding Level of Care Code ED [facility] Judge for [place]
[2023-07-04] MEDS: dexamethasone 10 mg/mL INJ IM (11:21)
[2023-07-04 11:37] VITALS: BP 167/94; PULSE 61; RESP 16; TEMP 36.7; O2SAT 98
== END 2023-07-04 11:38 | disposition home or self-care (01) ==
PROVIDERS: Emergency Provider Emergency Medicine; PCP Family Medicine
DX: S39.012A Strain of muscle, fascia and tendon of lower back, initial encounter (principal); Z79.82 Long term (current) use of aspirin; Z79.84 Long term (current) use of oral hypoglycemic drugs; Z87.891 Personal history of nicotine dependence; E11.22 Type 2 diabetes mellitus with diabetic chronic kidney disease; I13.0 Hypertensive heart and chronic kidney disease with heart failure and stage 1 through stage 4 chronic kidney disease, or unspecified chronic kidney disease; N18.9 Chronic kidney disease, unspecified; I50.30 Unspecified diastolic (congestive) heart failure; Z85.46 Personal history of malignant neoplasm of prostate; X58.XXXA Exposure to other specified factors, initial encounter
CPT/HCPCS: 96372; 99284; J1100

== ENCOUNTER 2023-07-12 06:00 | Outpatient (RCR) | payer OTHER, SELFPAY | END 2023-08-11 23:59 | disposition home or self-care (01) | LOC: SPT 06:00 | PROVIDERS: PCP Family Medicine; Visit Provider Family Medicine | DX: M62.81 Muscle weakness (generalized) (principal) | CPT/HCPCS: 97110 ==

== ENCOUNTER 2023-08-12 06:00 | Outpatient (RCR) | payer OTHER, SELFPAY | END 2023-09-10 23:59 | disposition home or self-care (01) | LOC: SPT 06:00 | PROVIDERS: PCP Family Medicine; Visit Provider Family Medicine | DX: M62.81 Muscle weakness (generalized) (principal) | CPT/HCPCS: 97110 ==

== ENCOUNTER 2023-09-11 06:00 | Outpatient (RCR) | payer OTHER, SELFPAY | END 2023-10-11 23:59 | disposition home or self-care (01) | LOC: SPT 06:00 | PROVIDERS: PCP Family Medicine; Visit Provider Family Medicine | DX: M62.81 Muscle weakness (generalized) (principal) | CPT/HCPCS: 97110 ==

== ENCOUNTER → 2023-10-03 09:15 | Outpatient (BNVA) | payer OTHER, SELFPAY | PROVIDERS: PCP Family Medicine; Visit Provider Podiatrist Foot & Ankle Surgery | DX: E11.42 Type 2 diabetes mellitus with diabetic polyneuropathy; L60.3 Nail dystrophy; L84 Corns and callosities; M20.11 Hallux valgus (acquired), right foot; Z79.84 Long term (current) use of oral hypoglycemic drugs | CPT/HCPCS: 11721 ==

== ENCOUNTER 2023-10-06 10:57 | Outpatient (CLI) | payer OTHER, SELFPAY ==
--- NOTE | 2023-10-06 11:00 | MR_ITS ---
WS: [id number] MRI LUMBAR SPINE NONCONTRAST TECHNIQUE: Sagittal T1, T2 and STIR imaging. Axial T1 and T2 imaging. CLINICAL INFORMATION: ACUTE LUMBAR SPINE MYELOPATHY COMPARISON: MRI 2020 FINDINGS: Postoperative changes pedicle screw fixation L3-S1 with dorsal interconnecting rods and sacroiliac fi xation screws. Interbody fusion grafts. Susceptibility artifact from hardware degrades some images. L1-L2: Minimal disc bulging. Mild facet arthropathy. Spinal canal and foramen are patent. L2-L3: Postoperative changes. Spinal canal and foramen appear patent. L3-L4: Postoperative changes. Mild central canal stenosis. Mild foraminal narrowing. L4-L5: Postoperative changes with laminectomy defects. Spinal canal is patent. Mild bilateral foramin al narrowing. L5-S1: Postoperative changes. Laminectomy defects. Mild central canal stenosis. Mild bilateral forami nal narrowing. Partially visualized renal atrophy. Small disc protrusions in the cervical spine seen on the home care music therapist im aging. Partially visualized enlarged prostate. This measures approximately 4.2 cm. Recommend correlat ion PSA. MR/MR lumbar spine wo con* [id number] IMPRESSION: 1. Prior postoperative changes pedicle screw fixation L2-S1 with sacroiliac fi xation screws. Interbody fusion grafts L2-L5. Images degraded by susceptibility artifact from hardware. 2. Mild narrowing of the thecal sac L3-4 and L5-S1. No high-grade central dimitrios l stenosis. 3. Mild foraminal narrowing described above. 4. Small protrusions in the cervical spine on the home care music therapist imaging at C3 C4 C5-C6 and C6-C7 with mild central canal stenosis. Recommend further evaluation with cervical spine MRI. 5. Partially visualized enlarged prostate. This measures approximately 4.2 cm. Recommend correlation PSA.
--- NOTE | 2023-10-06 11:00 | MR_ITS ---
WS: [id number] MRI THORACIC SPINE WITHOUT CONTRAST TECHNIQUE: Sagittal T1, T2 and STIR imaging. Axial T2 imaging. Noncontrast imaging obtained. CLINICAL INFORMATION: CHRONIC THORACIC SPINE MYELOPATHY FINDINGS: Mild thoracic curve. Mild thoracic kyphosis. Hypertrophic changes thoracic spine. Some images degrade d due to respiratory artifact. No acute compression fractures. No significant central canal stenosis. Cord signal appears normal on the STIR imaging. No cord atrophy. No significant disc extrusions or protrusions. Moderate spondyliti c changes. Moderate facet arthropathy lower thoracic spine. Bilateral foraminal narrowing T8-T9, LEFT T9-T10, bilateral T10-11 and RIGHT T11-12. Normal caliber thoracic aorta. Adrenal glands are normal. MR/MR thoracic spin wo con* [id number] IMPRESSION: 1. Mild thoracic curve. Mild thoracic kyphosis. No acute compression fractures . 2. No significant central canal stenosis. 3. Cord signal appears normal considering respiratory artifact. 4. Moderate spondylitic changes. 5. Multilevel mild foraminal narrowing lower thoracic spine described above. 6. Small esophageal hernia.
== END 2023-10-06 10:58 | disposition home or self-care (01) ==
LOC: RAD 10:57
PROVIDERS: PCP Family Medicine; Visit Provider Neurological Surgery
DX: M48.02 Spinal stenosis, cervical region (principal); M54.17 Radiculopathy, lumbosacral region; Z98.1 Arthrodesis status; M54.16 Radiculopathy, lumbar region; M99.62 Osseous and subluxation stenosis of intervertebral foramina of thoracic region; M47.814 Spondylosis without myelopathy or radiculopathy, thoracic region; K44.9 Diaphragmatic hernia without obstruction or gangrene; N40.0 Benign prostatic hyperplasia without lower urinary tract symptoms
CPT/HCPCS: 72146; 72148

== ENCOUNTER 2023-10-12 06:00 | Outpatient (RCR) | payer OTHER, SELFPAY | END 2023-10-17 23:59 | disposition home or self-care (01) | LOC: SPT 06:00 | PROVIDERS: PCP Family Medicine; Visit Provider Family Medicine | DX: M62.81 Muscle weakness (generalized) (principal); R26.89 Other abnormalities of gait and mobility | CPT/HCPCS: 97110 ==

== ENCOUNTER 2023-10-23 13:41 | Outpatient (CLI) | payer OTHER, SELFPAY ==
--- NOTE | 2023-10-23 13:43 | MR_ITS ---
WS: [id number] MRI CERVICAL SPINE NONCONTRAST HISTORY: NECK PAIN/SPINAL STENOSIS/HX OF LUMBAR FUSION COMPARISON: 02/21/2020 Technique: Multiplanar, multisequence noncontrast imaging of the cervical spine. Increasing degenerative disc disease and spondylosis. Does appear to be an anterior cervical fusion a t the C4-5 level which is new since 2020. Osteophytosis and degenerative disc disease and facet disease encroaching on the ventral thecal sac. Respiratory motion artifact decreasing evaluation of the cervical cord. Craniocervical junction, C1 and C2 relationship, odontoid process and soft tissues are normal. C2-C3: Osteophytic ridging. Mild foraminal stenosis. C3-C4: Annular disc bulging with osteophytic ridging and facet arthritis. Moderate central with sever e bilateral foraminal stenosis predominately due to osteophytes and facet disease. C4-C5: Osteophytic ridging with severe RIGHT and moderate LEFT foraminal stenosis. Facet joint arthri tis. C5-C6: Annular disc bulging with marked osteophytic ridging. Moderate central with moderate to severe foraminal stenosis. C6-C7: Annular disc bulging with facet joint arthritis and moderate bilateral foraminal stenosis. Sha llow central disc protrusion. C7-T1: Normal. Paraspinal soft tissue are normal. MR/MR cervical spin wo con* [id number] IMPRESSION: 1. Progression of spondylosis and stenoses since the prior MRI of 02/21/2020. 2. Interval anterior cervical fusion at C4-5. 3. C3-4: Moderate central with severe bilateral foraminal stenosis predominant ly due to osteophytes. 4. C4-5: Severe RIGHT and moderate LEFT foraminal stenosis. 5. C5-6: Moderate central with moderate to severe foraminal stenosis. 6. C6-7: Moderate bilateral foraminal stenosis.
== END 2023-10-23 13:42 | disposition home or self-care (01) ==
LOC: RAD 13:41
PROVIDERS: PCP Family Medicine; Visit Provider Neurological Surgery
DX: M46.02 Spinal enthesopathy, cervical region (principal); M54.17 Radiculopathy, lumbosacral region; M54.16 Radiculopathy, lumbar region; M99.61 Osseous and subluxation stenosis of intervertebral foramina of cervical region; M25.78 Osteophyte, vertebrae; M47.892 Other spondylosis, cervical region; Z98.1 Arthrodesis status
CPT/HCPCS: 72141

== ENCOUNTER → 2023-12-12 09:00 | Outpatient (BNVA) | payer OTHER, SELFPAY | PROVIDERS: PCP Family Medicine; Visit Provider Podiatrist Foot & Ankle Surgery | DX: L60.3 Nail dystrophy (principal); E11.42 Type 2 diabetes mellitus with diabetic polyneuropathy; M20.10 Hallux valgus (acquired), unspecified foot; L84 Corns and callosities; M20.11 Hallux valgus (acquired), right foot; Z79.84 Long term (current) use of oral hypoglycemic drugs | CPT/HCPCS: 11721 ==

== ENCOUNTER → 2024-02-14 09:51 | Outpatient (BNVA) | payer OTHER, SELFPAY | PROVIDERS: PCP Family Medicine; Visit Provider Podiatrist Foot & Ankle Surgery | DX: L60.3 Nail dystrophy (principal); E11.42 Type 2 diabetes mellitus with diabetic polyneuropathy; L84 Corns and callosities; M20.11 Hallux valgus (acquired), right foot; Z79.84 Long term (current) use of oral hypoglycemic drugs | CPT/HCPCS: 11721 ==

== ENCOUNTER → 2024-05-15 10:56 | Outpatient (BNVA) | payer OTHER, SELFPAY | PROVIDERS: PCP Family Medicine; Visit Provider Podiatrist Foot & Ankle Surgery | DX: E11.42 Type 2 diabetes mellitus with diabetic polyneuropathy (principal); L60.3 Nail dystrophy; I73.9 Peripheral vascular disease, unspecified; R09.02 Hypoxemia; L84 Corns and callosities; I87.8 Other specified disorders of veins; M20.11 Hallux valgus (acquired), right foot; Z79.84 Long term (current) use of oral hypoglycemic drugs | CPT/HCPCS: 11721; 99213 ==

== ENCOUNTER 2024-07-12 09:35 | Outpatient (CLI) | payer OTHER, SELFPAY ==
--- NOTE | 2024-07-12 09:30 | USR_ITS ---
PROCEDURE INFORMATION: Exam: US Duplex Lower Extremity Veins, Bilateral, Venous Insufficiency Exam date and time: 07/12/2024 9:45 AM Age: 78 years old Clinical indication: Condition or disease; Peripheral vascular disease; Additional info: Pdv TECHNIQUE: Imaging protocol: Real-time duplex ultrasound of the extremities with 2-D harp scale, color Doppler flow and spectral waveform analysis including responses to compression and other maneuvers (when performed) with image documentation. Complete exam focused on the bilateral lower extremity veins for venous insufficiency. COMPARISON: No relevant prior studies available. FINDINGS: Right deep veins: Unremarkable. The common femoral, femoral, proximal profunda femoral and popliteal veins are patent without thrombus. Normal Doppler waveforms. Normal compressibility and/or augmentation response. No evidence of venous reflux. Right superficial veins: Saphenofemoral junction and greater saphenous veins are patent without thrombus. Borderline increased reflux time distal great saphenous vein measuring 0.6 seconds. Left deep veins: Unremarkable. The common femoral, femoral, proximal profunda femoral and popliteal veins are patent without thrombus. Normal Doppler waveforms. Normal compressibility and/or augmentation response. No evidence of venous reflux. Left superficial veins: Saphenofemoral junction and greater saphenous veins are patent without thrombus. No evidence of venous reflux. Soft tissues: Unremarkable. US/CV tereso dup insuyo [facility] [id number] IMPRESSION: Borderline mildly increased reflux time in the distal right great saphenous vein which may indicate venous insufficiency. Otherwise, the rest of the superficial and deep veins in the lower extremities are unremarkable without signs of venous reflux or thrombus.
== END 2024-07-12 09:36 | disposition home or self-care (01) ==
PROVIDERS: PCP Family Medicine; Visit Provider Podiatrist Foot & Ankle Surgery
DX: I73.9 Peripheral vascular disease, unspecified (principal); R93.89 Abnormal findings on diagnostic imaging of other specified body structures
CPT/HCPCS: 93970

== ENCOUNTER 2024-07-15 11:02 | Outpatient (CLI) | payer OTHER, SELFPAY ==
--- NOTE | 2024-07-15 11:30 | USR_ITS ---
PROCEDURE INFORMATION: Exam: US Duplex Bilateral Lower Extremity Arteries Exam date and time: 07/15/2024 11:12 AM Age: 78 years old Clinical indication: Condition or disease; Peripheral vascular disease; Additional info: Pvd TECHNIQUE: Imaging protocol: Real-time ultrasound scan of the arteries of the bilateral lower extremities with 2-D harp scale, color Doppler flow and spectral waveform analysis. Images documented and saved. COMPARISON: [place] [id number] 07/12/2024 9:45 AM FINDINGS: Right common femoral artery: No occlusion or significant stenosis. Normal waveform. Right superficial femoral artery: No occlusion or significant stenosis. Normal waveform. Right popliteal artery: No occlusion or significant stenosis. Normal waveform. Right calf/foot arteries: No occlusion or significant stenosis in the visualized arteries. Normal waveforms. Dorsalis pedis artery is patent. Left common femoral artery: No occlusion or significant stenosis. Normal waveform. Left superficial femoral artery: No occlusion or significant stenosis. Normal waveform. Left popliteal artery: No occlusion or significant stenosis. Normal waveform. Left calf/foot arteries: No occlusion or significant stenosis in the visualized arteries. Normal waveforms. Dorsalis pedis artery is patent. Other findings: ABIs could not be obtained. US/[place] [id number] IMPRESSION: 1. No stenosis or occlusion. 2. ABIs could not be obtained.
== END 2024-07-15 11:03 | disposition home or self-care (01) ==
PROVIDERS: PCP Family Medicine; Visit Provider Podiatrist Foot & Ankle Surgery
DX: I73.9 Peripheral vascular disease, unspecified (principal)
CPT/HCPCS: 93925

== ENCOUNTER → 2024-08-08 13:15 | Outpatient (BNVA) | payer OTHER, SELFPAY | PROVIDERS: PCP Family Medicine; Visit Provider Podiatrist Foot & Ankle Surgery | DX: E11.42 Type 2 diabetes mellitus with diabetic polyneuropathy (principal); L60.3 Nail dystrophy; L60.0 Ingrowing nail; L84 Corns and callosities; L03.031 Cellulitis of right toe; I87.8 Other specified disorders of veins; Z79.84 Long term (current) use of oral hypoglycemic drugs | CPT/HCPCS: 11730; 11750; 99214; A6219; J9999 ==

== ENCOUNTER → 2024-08-19 14:12 | Outpatient (BNVA) | payer OTHER, SELFPAY | PROVIDERS: PCP Family Medicine; Visit Provider Podiatrist Foot & Ankle Surgery | DX: E11.42 Type 2 diabetes mellitus with diabetic polyneuropathy (principal); L60.0 Ingrowing nail; L60.3 Nail dystrophy; L84 Corns and callosities; I87.8 Other specified disorders of veins; Z79.84 Long term (current) use of oral hypoglycemic drugs | CPT/HCPCS: 11721; 99213 ==

== ENCOUNTER → 2024-11-19 13:31 | Outpatient (BNVA) | payer OTHER, SELFPAY | PROVIDERS: PCP Family Medicine; Visit Provider Podiatrist Foot & Ankle Surgery | DX: E11.42 Type 2 diabetes mellitus with diabetic polyneuropathy (principal); L60.3 Nail dystrophy; L84 Corns and callosities; I87.8 Other specified disorders of veins; Z79.84 Long term (current) use of oral hypoglycemic drugs | CPT/HCPCS: 11721 ==

== ENCOUNTER → 2025-02-25 10:02 | Outpatient (BNVA) | payer OTHER, SELFPAY | PROVIDERS: PCP Family Medicine; Visit Provider Podiatrist Foot & Ankle Surgery | DX: E11.42 Type 2 diabetes mellitus with diabetic polyneuropathy (principal); L60.3 Nail dystrophy; L84 Corns and callosities; I87.8 Other specified disorders of veins; Z79.84 Long term (current) use of oral hypoglycemic drugs | CPT/HCPCS: 11721 ==